=== PATIENT | male | born 1975 | race Hispanic/Latino ===

== ENCOUNTER 2018-01-13 14:15 | Observation (INO) | payer SELFPAY ==
[2018-01-13 14:52] LABS: Protime INR 0.91
[2018-01-13 14:55] LABS: Absolute Lymphocytes (CBC) 1.6 K/uL (0.7-4.9); Absolute Monocytes 0.6 K/uL (0.1-1.3); Absolute Neutrophil 3.7 K/uL (1.8-8.0); Basophils % 1.1 % (0-1.3); Eosinophils % 3.1 % (0-4.4); Hematocrit 41.9 % (39.6-49.0); MCH 29.2 pg (27.0-35.0); MCV 85.5 fL (80-100); MPV 8.6 fL (7.6-11.3); Monocytes % 10.5 % (3.3-12.3)
--- NOTE | 2018-01-13 15:04 | RAD REPORT ---
EXAM DESCRIPTION: RAD - Chest Single View - 01/13/2018 3:00 pm CLINICAL HISTORY: CHEST PAIN Chest pain. COMPARISON: No comparisons FINDINGS: Portable technique limits examination quality. The lungs are grossly clear. The heart is normal in size. No displaced fractures.Sternotomy wires pre sent. IMPRESSION: No acute intrathoracic process suspected.
[2018-01-13] MEDS ORDERED: NITROGLYCERIN 0.4 MG/TAB SL ONE (15:06)
--- NOTE | 2018-01-13 15:09 | EKG ---
Test Date: 2018-01-13 Test Time: 14:35:21 Bean Roaster: ARACELIS MEASUREMENT RESULTS: Intervals: Rate: 66 LA: 140 QRSD: 96 QT: 364 QTc: 381 Bylas: P: 44 LA: 140 QRS: -55 T: -1 INTERPRETIVE STATEMENTS: Normal sinus rhythm Left axis deviation Septal infarct, age undetermined Abnormal ECG No previous ECG available for comparison Electronically Signed On 01-13-18 15:09:01 GASTROENTEROLOGIST by Vitaliy Marie
[2018-01-13 15:11] LABS: ALT/SGPT 26 U/L (12-78); AST/SGOT 17 U/L (15-37); Albumin 3.7 g/dL (3.4-5.0); Alkaline Phosphatase 66 U/L (45-117); BUN Blood Urea Nitrogen 20 mg/dL (7-18); Bicarbonate 23 mmol/L (21-32); Bilirubin Direct 0.1 mg/dL (0-0.2); Bilirubin Total 0.9 mg/dL (0.2-1.0); Glucose Level 218 mg/dL (74-106); Magnesium 2.2 mg/dL (1.8-2.4); NT PRO-BNP 28 pg/mL (<125); Potassium 3.7 mmol/L (3.5-5.1); Protein, Total 7.5 g/dL (6.4-8.2); Sodium Level 138 mmol/L (136-145); Troponin (Emerg Dept Use Only) < 0.02 ng/mL (0.0-0.045)
--- NOTE | 2018-01-13 16:38 | ER ---
Nurse's Notes [facility] Name: Axel Contreras Age: 42 yrs Sex: Male : 1975 Arrival Date: 01/13/2018 Time: 14:17 Bed 6 Private MD: Diagnosis: Chest pain, unspecified Presentation: 01/13 14:18 Presenting complaint: Patient states: "I was walking to work when I suddenly felt pain ca1 on my left side of my chest". Transition of care: patient was not received from another setting of care. Onset of symptoms was January 13, 2018. Risk Assessment: Do you want to hurt yourself or someone else? Patient reports no desire to harm self or others. Initial Sepsis Screen: Does the patient meet any 2 criteria? No. Patient's initial sepsis screen is negative. Does the patient have a suspected source of infection? No. Patient's initial sepsis screen is negative. Care prior to arrival: Medication(s) given: ASA, 325 mg, Nitroglycerin, 0.4 mg SL Glucose check: 244. 14:18 Method Of Arrival: EMS: [facility] ca1 14:18 Acuity: GEOVANNA 2 ca1 Historical: - Allergies: 14:26 No Known Allergies; ca1 - PMHx: 14:26 Diabetes - NIDDM; Hypertension; Myocardial infarction; ca1 - PSHx: 14:26 heart bypass; ca1 - Immunization history:: Adult Immunizations not up to date. - Ebola Screening: : No symptoms or risks identified at this time. - Social history:: Smoking status: Patient/guardian denies using tobacco. Screenin:36 Abuse screen: Denies threats or abuse. Nutritional screening: No deficits noted. ca1 Tuberculosis screening: No symptoms or risk factors identified. Fall Risk None identified. Assessment: 14:20 General: Appears uncomfortable, Behavior is calm, cooperative. Pain: Complains of pain ca1 in left breast Pain does not radiate. Pain currently is 6 out of 10 on a pain scale. Quality of pain is described as sharp, Pain began suddenly. 14:20 Neuro: No deficits noted. Cardiovascular: Heart tones S1 S2 present. Respiratory: ca1 Breath sounds are clear bilaterally. GI: No signs and/or symptoms were reported involving the gastrointestinal system. : No signs and/or symptoms were reported regarding the genitourinary system. EENT: No signs and/or symptoms were reported regarding the EENT system. Derm: No signs and/or symptoms reported regarding the dermatologic system. Musculoskeletal: Circulation, motion, and sensation intact. 15:20 Reassessment: Pt resting in bed with eyes closed. Pt awakens easily to verbal stimuli. aa5 Pt reports pain is decreased to 4/10 on a pain scale. Respirations even and unlabored, skin is pink,warm/dry. Bed remains in low position, side rails x 2, call ramirez within reach . 19:00 General: Appears in no apparent distress. distressed, Behavior is calm, cooperative. rr5 19:00 Pain: Denies pain. Neuro: Level of Consciousness is awake, alert, Oriented to person, rr5 place, time, situation. Cardiovascular: Heart tones S1 S2 present Capillary refill < 3 seconds Patient's skin is warm and dry. Respiratory: Airway is patent Respiratory effort is even, unlabored, Respiratory pattern is regular, symmetrical. GI: No signs and/or symptoms were reported involving the gastrointestinal system. : No signs and/or symptoms were reported regarding the genitourinary system. EENT: No signs and/or symptoms were reported regarding the EENT system. Derm: No signs and/or symptoms reported regarding the dermatologic system. Musculoskeletal: Circulation, motion, and sensation intact. Capillary refill < 3 seconds, Range of motion:. 19:40 Reassessment: Patient appears in no apparent distress at this time. call made to 4th lp1 floor they will call back as stated by the staff nurse monico Patient denies pain at this time. Patient states feeling better. Patient states symptoms have improved. Vital Signs: 14:22 BP 140 / 108; Pulse 70; Resp 16 S; Temp 98.8(O); Pulse Ox 98% on R/A; Weight 81.65 kg; ca1 Height 5 ft. 9 in. (175.26 cm); Pain 6/10; 15:20 BP 131 / 97; Pulse 70; Resp 16 S; Pulse Ox 97% on R/A; Pain 4/10; aa5 16:20 BP 141 / 98; Pulse 75; Resp 16 S; Pulse Ox 97% on R/A; aa5 19:00 BP 130 / 89; Pulse 67; Resp 16; Temp 98.9; Pulse Ox 99% on R/A; Pain 0/10; rr5 19:56 BP 166 / 91; Pulse 84; Resp 18; Pulse Ox 99% on R/A; ea 20:42 BP 136 / 85; Pulse 80; Resp 17; Temp 98.6; Pulse Ox 99% on R/A; Pain 0/10; lp1 14:22 Body Mass Index 26.58 (81.65 kg, 175.26 cm) ca1 ED Course: 14:17 Patient arrived in ED. ca1 14:20 Arm band placed on right wrist. ca1 14:22 Triage completed. ca1 14:24 Madhav Salguero PA is PHCP. jr8 14:24 Jack Haywood MD is Attending Physician. jr8 14:26 Sandhya Forman, NANCY is Primary Nurse. ca1 14:32 Initial lab(s) drawn, by me, sent to lab. Inserted saline lock: 18 gauge in right aa5 forearm, using aseptic technique. Blood collected. 14:57 X-ray completed. Portable x-ray completed in exam room. Patient tolerated procedure ls3 well. 15:01 XRAY Chest (1 view) In Process Unspecified. EDMS 16:37 Graciela Mckeon MD is Hospitalizing Provider. jr8 19:11 Report given to Xiomy RN and NANCY Diallo. ca1 19:11 Patient has correct armband on for positive identification. phototypesetting equipment monitor on. Pulse rr5 ox on. NIBP on. 20:46 No provider procedures requiring assistance completed. Patient admitted, IV remains in rr5 place. Patient maintains SpO2 saturation greater than 95% on room air. Administered Medications: 15:00 Drug: Nitroglycerin 0.4 mg Route: Sublingual; aa5 15:25 Follow up: Response: No adverse reaction aa5 Outcome: 16:37 Decision to Hospitalize by Provider. jr8 20:45 Admitted to Tele accompanied by tech, via wheelchair, with chart, Report called to rr5 leslie RN 20:45 Condition: stable 20:45 Instructed on the need for admit. 21:09 Patient left the ED. lp1 Signatures: Dispatcher [employer] EDMS Jodi Nuno RN RN aa5 Imani Roldan RN RN lp1 Madhav Salguero PA PA jr8 Xiomy Lemus RN RN ea Siler, Lynzie ls3 Carson Sandra RN RN rr5 Acob, Sandhya, RN RN ca1 Corrections: (The following items were deleted from the chart) 16:38 15:32 BP 132 / 112; Pulse 70bpm; Resp 16bpm; Pulse Ox 96% RA; Pain 5/10; ca1 aa5
--- NOTE | 2018-01-13 16:38 | EDPHYS ---
Physician Documentation [facility] Name: Axel Contreras Age: 42 yrs Sex: Male : 1975 Arrival Date: 01/13/2018 Time: 14:17 Bed 6 Private MD: ED Physician Jack Haywood HPI: 01/13 15:35 This 42 yrs old Male presents to ER via EMS with complaints of Chest Pain. jr8 15:35 The patient or guardian reports chest pain that is located primarily in the substernal jr8 area. Onset: acutely, today. The pain does not radiate. Associated signs and symptoms: The patient has no apparent associated signs or symptoms. The chest pain is described as squeezing. Duration: The patient or guardian reports a single episode, that is still ongoing, but improving. Modifying factors: The symptoms are alleviated by nothing. the symptoms are aggravated by activity. Severity of pain: At its worst the pain was moderate in the emergency department the pain is unchanged. The patient has experienced a previous episode. The patient has not recently seen a physician. Historical: - Allergies: 14:26 No Known Allergies; ca1 - PMHx: 14:26 Diabetes - NIDDM; Hypertension; Myocardial infarction; ca1 - PSHx: 14:26 heart bypass; ca1 - Immunization history:: Adult Immunizations not up to date. - Ebola Screening: : No symptoms or risks identified at this time. - Social history:: Smoking status: Patient/guardian denies using tobacco. ROS: 15:35 Eyes: Negative for injury, pain, redness, and discharge, ENT: Negative for injury, jr8 pain, and discharge, Neck: Negative for injury, pain, and swelling, Respiratory: Negative for shortness of breath, cough, wheezing, and pleuritic chest pain, Abdomen/GI: Negative for abdominal pain, nausea, vomiting, diarrhea, and constipation, Back: Negative for injury and pain, MS/Extremity: Negative for injury and deformity, Skin: Negative for injury, rash, and discoloration, Neuro: Negative for headache, weakness, numbness, tingling, and seizure. 15:35 Cardiovascular: Positive for chest pain, Negative for edema, orthopnea, palpitations, paroxysmal nocturnal dyspnea. Exam: 15:35 Eyes: Pupils equal round and reactive to light, extra-ocular motions intact. Lids and jr8 lashes normal. Conjunctiva and sclera are non-icteric and not injected. Cornea within normal limits. Periorbital areas with no swelling, redness, or edema. ENT: Nares patent. No nasal discharge, no septal abnormalities noted. Tympanic membranes are normal and external auditory canals are clear. Oropharynx with no redness, swelling, or masses, exudates, or evidence of obstruction, uvula midline. Mucous membranes moist. Neck: Trachea midline, no thyromegaly or masses palpated, and no cervical lymphadenopathy. Supple, full range of motion without nuchal rigidity, or vertebral point tenderness. No Meningismus. Chest/axilla: Normal chest wall appearance and motion. Nontender with no deformity. No lesions are appreciated. Cardiovascular: Regular rate and rhythm with a normal S1 and S2. No gallops, murmurs, or rubs. Normal PMI, no JVD. No pulse deficits. Respiratory: Lungs have equal breath sounds bilaterally, clear to auscultation and percussion. No rales, rhonchi or wheezes noted. No increased work of breathing, no retractions or nasal flaring. Abdomen/GI: Soft, non-tender, with normal bowel sounds. No distension or tympany. No guarding or rebound. No evidence of tenderness throughout. Back: No spinal tenderness. No costovertebral tenderness. Full range of motion. Skin: Warm, dry with normal turgor. Normal color with no rashes, no lesions, and no evidence of cellulitis. MS/ Extremity: Pulses equal, no cyanosis. Neurovascular intact. Full, normal range of motion. Neuro: Awake and alert, GCS 15, oriented to person, place, time, and situation. Cranial nerves II-XII grossly intact. Motor strength 5/5 in all extremities. Sensory grossly intact. Cerebellar exam normal. Normal gait. Vital Signs: 14:22 BP 140 / 108; Pulse 70; Resp 16 S; Temp 98.8(O); Pulse Ox 98% on R/A; Weight 81.65 kg; ca1 Height 5 ft. 9 in. (175.26 cm); Pain 6/10; 15:20 BP 131 / 97; Pulse 70; Resp 16 S; Pulse Ox 97% on R/A; Pain 4/10; aa5 16:20 BP 141 / 98; Pulse 75; Resp 16 S; Pulse Ox 97% on R/A; aa5 19:00 BP 130 / 89; Pulse 67; Resp 16; Temp 98.9; Pulse Ox 99% on R/A; Pain 0/10; rr5 19:56 BP 166 / 91; Pulse 84; Resp 18; Pulse Ox 99% on R/A; ea 20:42 BP 136 / 85; Pulse 80; Resp 17; Temp 98.6; Pulse Ox 99% on R/A; Pain 0/10; lp1 14:22 Body Mass Index 26.58 (81.65 kg, 175.26 cm) ca1 MDM: 14:24 Patient medically screened. jr8 16:35 The patient was not given aspirin in the Emergency Department. Patient reports taking jr8 aspirin within the past 24 hours. Data reviewed: vital signs, nurses notes, lab test result(s), EKG, radiologic studies, plain films. Data interpreted: Pulse oximetry: on room air is 96 %. Interpretation: normal. Counseling: I had a detailed discussion with the patient and/or guardian regarding: the historical points, exam findings, and any diagnostic results supporting the discharge/admit diagnosis, lab results, radiology results, the need for further work-up and treatment in the hospital. Physician consultation: Graciela Mckeon MD was called at 16:35, was contacted at 16:35, regarding admission, to the telemetry unit. and will see patient in ED. 01/13 14:24 Order name: Basic Metabolic Panel; Complete Time: 15:01/13 14:24 Order name: CBC with Diff; Complete Time: 15:01/13 14:24 Order name: LFT's; Complete Time: 15:01/13 14:24 Order name: Magnesium; Complete Time: 15:01/13 14:24 Order name: NT PRO-BNP; Complete Time: 15:01/13 14:24 Order name: PT-INR; Complete Time: 15:01/13 14:24 Order name: Troponin (emerg Dept Use Only); Complete Time: 15:01/13 14:24 Order name: XRAY Chest (1 view); Complete Time: 15:01/13 14:24 Order name: EKG; Complete Time: 14:01/13 14:24 Order name: Cardiac monitoring; Complete Time: 14:40 8 01/13 14:24 Order name: EKG - Nurse/Tech; Complete Time: 14:40 8 01/13 14:24 Order name: IV Saline Lock; Complete Time: 14:40 8 01/13 14:24 Order name: Labs collected and sent; Complete Time: 14:40 jr8 01/13 14:24 Order name: O2 Per Protocol; Complete Time: 14:40 8 01/13 14:24 Order name: O2 Sat Monitoring; Complete Time: 14:40 jr8 Administered Medications: 15:00 Drug: Nitroglycerin 0.4 mg Route: Sublingual; aa5 15:25 Follow up: Response: No adverse reaction aa5 Disposition: 01/14 06:22 Co-signature as Attending Physician, Jack Haywood MD I agree with the assessment and kenneth plan of care. Disposition: 01/13/18 16:37 Hospitalization ordered by Graciela Mckeon for Observation. Preliminary diagnosis is Chest pain, unspecified. - Bed requested for Telemetry/MedSurg (observation). - Status is Observation. lp1 - Condition is Stable. - Problem is new. - Symptoms have improved. UTI on Admission? No Signatures: Dispatcher [employer] EDMS Lou Alexander Corey, MD MD cha Calderon, Audri, RN RN aa5 Imani Roldan RN RN lp1 Madhav Salguero PA PA jr8 Carson Sandra, RN RN rr5 Sandhya Forman RN RN ca1 Corrections: (The following items were deleted from the chart) 01/13 18:54 16:37 Hospitalization Ordered by Graciela Mckeon MD for Observation. Preliminary bd diagnosis is Chest pain, unspecified. Bed requested for Telemetry/MedSurg (observation). Status is Observation. Condition is Stable. Problem is new. Symptoms have improved. UTI on Admission? No. jr8 21:09 18:54 01/13/2018 16:37 Hospitalization Ordered by Graciela Mckeon MD for Observation. lp1 Preliminary diagnosis is Chest pain, unspecified. Bed requested for Telemetry/MedSurg (observation). Status is Observation. Condition is Stable. Problem is new. Symptoms have improved. UTI on Admission? No. bd
[2018-01-13] MEDS ORDERED: ONDANSETRON 4 MG/2 ML VIAL IV PRN (21:40)
[2018-01-13] MEDS ORDERED: ACETAMINOPHEN 500 MG TAB PO PRN (21:40)
[2018-01-13] MEDS ORDERED: ACETAMINOPHEN 325 MG TABLET ONE (21:57)
[2018-01-13] MEDS: INSULIN -REGULAR HUMAN 50 UNIT/0.5 ML ML SQ SCH (23:26)
[2018-01-13] MEDS ORDERED: METOPROLOL TAR 50 MG TAB PO ONE (23:35)
[2018-01-13 23:45] LABS: Urine Appearance CLEAR; Urine Bilirubin NEGATIVE (NEG); Urine Blood NEGATIVE (NEG); Urine Color YELLOW; Urine Glucose 1+ (NEG); Urine Protein TRACE (NEG); Urine Specific Gravity 1.025 (1.005-1.030); Urine Urobilinogen 0.2 mg/dL (0.2-1.0); Urine pH 5.5 (5.0-7.0)
[2018-01-13 23:49] LABS: Urine Microscopic Reflex ORDER UMIC
[2018-01-14 00:01] LABS: Urine Bacteria <20 /HPF (NONE SEEN); Urine Culture Reflex Order NOT NEEDED; Urine Mucus 2+ /HPF (NONE SEEN); Urine RBC <5 /HPF (NONE SEEN)
[2018-01-14] MEDS: INSULIN -REGULAR HUMAN 50 UNIT/0.5 ML ML SQ SCH ×3 (07:30→16:30)
[2018-01-14] MEDS: MORPHINE 4 MG/ML SYR IV PRN ×2 (07:43→14:43)
[2018-01-14] MEDS ORDERED: INFLUENZA VACCINE (for 3y+) 0.5 ML DOSE IMVAC ONE (08:00)
[2018-01-14 08:20] LABS: Absolute Lymphocytes (CBC) 2.5 K/uL (0.7-4.9); Absolute Monocytes 0.8 K/uL (0.1-1.3); Absolute Neutrophil 3.9 K/uL (1.8-8.0); Basophils % 1.2 % (0-1.3); Eosinophils % 3.2 % (0-4.4); Hematocrit 44.7 % (39.6-49.0); Lymphocytes % 33.1 % (15.3-44.8); MCH 29.4 pg (27.0-35.0); MCV 86.6 fL (80-100); MPV 8.9 fL (7.6-11.3); Monocytes % 10.1 % (3.3-12.3); RBC Red Blood Cell Count 5.17 M/uL (4.33-5.43)
[2018-01-14 08:36] LABS: ALT/SGPT 26 U/L (12-78); AST/SGOT 21 U/L (15-37); Albumin 3.9 g/dL (3.4-5.0); Alkaline Phosphatase 68 U/L (45-117); BUN Blood Urea Nitrogen 19 mg/dL (7-18); Bicarbonate 28 mmol/L (21-32); Bilirubin Total 1.2 mg/dL (0.2-1.0); Glucose Level 185 mg/dL (74-106); HDL Cholesterol 34 mg/dL (40-60); LDL Cholesterol, Calculated ND (<130); Potassium 4.2 mmol/L (3.5-5.1); Protein, Total 7.6 g/dL (6.4-8.2); Sodium Level 137 mmol/L (136-145)
[2018-01-14] MEDS ORDERED: REGADENOSON 0.4 MG/5 ML SYR IV ONE (08:59)
[2018-01-14] MEDS ORDERED: METOPROLOL TAR 50 MG TAB PO SCH (09:00)
[2018-01-14 09:07] LABS: LDL, Direct 125 mg/dL (100-129)
--- NOTE | 2018-01-14 12:14 | TREADPHA ---
DX: CHEST PAIN Date of Study: 01/14/18 Ht: 5 9 Wt: 182 lb 1.6 oz Consulting Physician: SHERINE MEDICATIONS: TYLENOL, NOVOLIN R, LOPRESSOR, ZOFRAN HISTORY: 42 YEAR OLD MALE WITH DIABETES MELLITUS, HYPERTENSION, CHEST PAIN PHYSICIAL EXAMINATION: RESTING B.P.: 146/96 RESTING H.R.: 58 RESTING EKG: SINUS BRADYCARDIA, RIGHT AXIS DEVIATION, POSSIBLE OLD ANTERIOR MYOCARDIAL INFARCTION PROTOCOL: LEXISCAN EXERCISE TIME: 3:30 B.P. AT PEAK STRESS: 131/92 IMPRESSION: LEXISCAN STRESS TEST PERFORMED. CARDIOLITE INJECTED PER PROTOCOL. NO CHEST PAIN, SUPRA VENTRICULAR TACHYCARDIA, OR VENTRICULAR TACHYCARDIA. SEE NUCLEAR MEDICINE REPORT.
--- NOTE | 2018-01-14 13:22 | P.HP ---
Certification for Inpatient Patient admitted to: Observation With expected LOS: <2 Midnights Patient will require the following post-hospital care: None Practitioner: I am a practitioner with admitting privileges, knowledge of patient current condition, hospital course, and medical plan of care. Services: Services provided to patient in accordance with Admission requirements found in Title 42 Section 412.3 of the Code of Federal Regulations Patient History Date of Service: 01/13/18 Reason for admission: chest pain rule out acute coronary syndrome History of Present Illness: Patient is a 42-year-old gentleman who came to the hospital with chest pain. Pain was mainly in the sternal region and he described as squeezing. There was no radiation of his pain. He has not been taking his heart medications nor is he taking his diabetic medications. Patient is very noncompliant. He came to the hospital for further workup. He has had a CABG Over the last year. He will be admitted to the hospital for further workup. Will go ahead and do serial troponins and EKG and if negative then plan to do a stress test in the morning. Allergies No Known Allergies Allergy (Unverified 01/13/18 23:54) Home Medications: Metformin HCl 1 tab PO BID 01/13/18 Metoprolol Tartrate 1 tab PO BID 01/13/18 - Past Medical/Surgical History Has patient received pneumonia vaccine in the past: No Diabetic: Yes -: Diabetes -: HTN -: Hyperlipidemia -: SD -: CABG x 5 - Family History Father Medical History: Heart disease, Hypertension, Diabetes Mother Medical History: Diabetes, Other (see notes) Notes: seizures - Social History Smoking Status: Former smoker Alcohol use: Yes CD- Drugs: No Caffeine use: Yes Place of Residence: Home Review of Systems 10-point ROS is otherwise unremarkable Physical Examination - Vital Signs Temperature: 97.1 F Blood Pressure: 149/95 Pulse: 60 Respirations: 18 Pulse Ox (%): 98 - Physical Exam General: Alert, In no apparent distress, Oriented x3 HEENT: Atraumatic, PERRLA, Mucous membr. moist/pink, EOMI, Sclerae nonicteric Neck: Supple, 2+ carotid pulse no bruit, No LAD, Without JVD or thyroid abnormality Respiratory: Clear to auscultation bilaterally, Normal air movement Cardiovascular: Regular rate/rhythm, Normal S1 S2, No murmurs Gastrointestinal: Normal bowel sounds, Soft and benign, Non-distended, No tenderness Musculoskeletal: No clubbing, No swelling, No tenderness Integumentary: No rashes Neurological: Normal gait, Normal speech, Normal strength at 5/5 x4 extr, Normal tone, Sensation intact, Cranial nerves 3-12 intact, Normal affect Lymphatics: No axilla or inguinal lymphadenopathy - Studies Laboratory Data (last 24 hrs) 01/13/18 14:35: WBC 6.2, Hgb 14.3, Hct 41.9, Plt Count 254 01/13/18 14:35: Sodium 138, Potassium 3.7, BUN 20 H, Creatinine 0.80, Glucose 218 H, Magnesium 2.2, Total Bilirubin 0.9, AST 17, ALT 26, Alkaline Phosphatase 66 01/13/18 14:34: PT 10.7, INR 0.91 Assessment & Plan - Problems (Diagnosis) (1) Chest pain, rule out acute myocardial infarction Current Visit: Yes Status: Acute (2) S/P CABG x 5 Current Visit: Yes Status: Acute (3) DM2 (diabetes mellitus, type 2) Current Visit: Yes Status: Acute (4) HTN (hypertension) Current Visit: Yes Status: Acute (5) Noncompliance Current Visit: Yes Status: Acute - Plan 1. Serial troponins and EKG 2. Cardiology consultation 3. Echocardiogram and inpatient stress test(pending cardiology evaluation) 4. Anti-platelet therapy, anti coagulation, beta-quique, statin, and O2 as needed 5. IV morphine for pain 6. Nitro p.r.n. Discharge Plan: Home Plan to discharge in: 48 Hours - Advance Directives Does patient have a Living Will: No Does patient have a Durable POA for Healthcare: No - Code Status/Comfort Care Code Status Assessed: Yes Code Status: Full Code Critical Care: No Time Spent Managing PTS Care (In Minutes): 45
--- NOTE | 2018-01-14 15:06 | RAD REPORT ---
EXAM DESCRIPTION: NM - Rest Stress Cardiac Imaging - 01/14/2018 12:29 pm CLINICAL HISTORY: Chest pain. COMPARISON: None. TECHNIQUE: The patient was administered approximately 10mCi of Tc 99m Sestamibi prior to resting SPE CT imaging of the heart. The patient was then administered approximately 30 mCi of Tc 99m Sestamibi f ollowing exercise or pharmacologic stress. Multiplanar SPECT images were reviewed. FINDINGS: Small area of diminished radiotracer uptake involves the anterior left ventricular myocar dium on stress images. On rest images these areas have a more normal appearance. Small to moderate area of diminished radiotracer uptake involves the inferior left ventricular myocar dium on rest and stress images. Left ventricular ejection fraction 40% IMPRESSION: Small apparent reversible perfusion defect involving the anterior left ventricular myoca rdium may indicate stress-induced ischemia Small to moderate fixed perfusion defect involving the inferior left ventricular myocardium may indic ate an infarct
--- NOTE | 2018-01-14 17:42 | P.SSS ---
Patient History Date of Service: 01/14/18 Reason for admission: chest pain rule out acute coronary syndrome History of Present Illness: Patient is a 42-year-old gentleman who came to the hospital with chest pain. Pain was mainly in the sternal region and he described as squeezing. There was no radiation of his pain. He has not been taking his heart medications nor is he taking his diabetic medications. Patient is very noncompliant. He came to the hospital for further workup. He has had a CABG Over the last year. He will be admitted to the hospital for further workup. Will go ahead and do serial troponins and EKG and if negative then plan to do a stress test in the morning. Allergies No Known Allergies Allergy (Unverified 01/13/18 23:54) Home Medications: Metformin HCl 1 tab PO BID 01/13/18 Metoprolol Tartrate 1 tab PO BID 01/13/18 Aspirin 81 mg PO DAILY #30 tab.chew 01/14/18 Atorvastatin Calcium [Lipitor*] 20 mg PO BEDTIME #30 tab 01/14/18 Clindamycin HCl 150 mg PO DAILY #10 capsule 01/14/18 - Past Medical/Surgical History Has patient received pneumonia vaccine in the past: No Diabetic: Yes -: Diabetes -: HTN -: Hyperlipidemia -: [place] -: CABG x 5 - Family History Father -: Heart disease, Hypertension, Diabetes Mother -: Diabetes, Other (see notes) Notes: seizures - Social History Smoking Status: Former smoker Alcohol use: Yes CD- Drugs: No Caffeine use: Yes Place of Residence: Home Review of Systems 10-point ROS is otherwise unremarkable Physical Examination - Vital Signs Temperature: 97.1 F Blood Pressure: 149/95 Pulse: 60 Respirations: 18 Pulse Ox (%): 98 - Physical Exam General: Alert, In no apparent distress HEENT: Atraumatic, PERRLA, Mucous membr. moist/pink, EOMI, Sclerae nonicteric Neck: Supple, 2+ carotid pulse no bruit, No LAD, Without JVD or thyroid abnormality Respiratory: Clear to auscultation bilaterally, Normal air movement Cardiovascular: Regular rate/rhythm, Normal S1 S2 Gastrointestinal: Normal bowel sounds, No tenderness Musculoskeletal: No tenderness Integumentary: No rashes Neurological: Normal gait, Normal speech, Normal strength at 5/5 x4 extr, Normal tone, Normal affect Lymphatics: No axilla or inguinal lymphadenopathy - Diagnosis (Problem(s)) (1) Chest pain, rule out acute myocardial infarction Status: Acute (2) DM2 (diabetes mellitus, type 2) Status: Acute (3) HTN (hypertension) Status: Acute (4) Noncompliance Status: Acute (5) S/P CABG x 5 Status: Acute Treatment Summary: Overall during the hospital stay patient remained stable The patient was admitted to the hospital for chest pain rule out ACS. Patient had echo and cardiac stress test done here in the hospital which were both within normal limits. Patient was seen by cardiology here in the hospital who recommended the patient to be discharged home safely and has to follow up with cardiology in about 1-2 days post discharge. Patient was asked to continue taking medication as prescribed by his primary care doctor and establish care with a local physician here. Patient was also placed on aspirin Lipitor given his extensive history of diabetes and elevated triglycerides. Patient demonstrated understanding and stated that he will be following up in about 1 to 2 days post discharge. - Disposition Disposition: ROUTINE DISCHARGE Condition: GOOD Patient Discharge Instructions: Please f,u with PCP in 1 to 2 week post discharge. Resume Home medication. New medication. Lipitor and ASA Diet: Regular Activity: Ad jolanta
--- NOTE | 2018-01-15 07:56 | ECHO ---
HEIGHT: 5 ft 9 in WEIGHT: 182 lb 1.6 oz DATE OF STUDY: 01/14/[address]: Graciela Mckeon MD 2-DIMENSIONAL: YES M.MODE: YES DOPPLER: YES COLOR FLOW: YES TDS: NO PORTABLE: NO DEFINITY: NO BUBBLE STUDY: NO DIAGNOSIS: CHEST PAIN CARDIAC HISTORY: CATHERIZATION: YES SURGERY: YES PROSTHETIC VALVE: NO PACEMAKER: NO MEASUREMENTS (cm) DIASTOLIC (NORMALS) SYSTOLIC (NORMALS) IVSd 1.0 (0.6-1.2) LA Diam 4.0 (1.9-4.0) LVEF 63% LVIDd 5.2 (3.5-5.7) LVIDs 3.4 (2.0-3.5) %FS 34% LVPWd 1.0 (0.6-1.2) Ao Diam 3.1 (2.0-3.7) 2 DIMENSIONAL ASSESSMENT: RIGHT ATRIUM: NORMAL LEFT ATRIUM: NORMAL RIGHT VENTRICLE: NORMAL LEFT VENTRICLE: NORMAL TRICUSPID VALVE: NORMAL MITRAL VALVE: NORMAL PULMONIC VALVE: NORMAL AORTIC VALVE: NORMAL PERICARDIAL EFFUSION: NONE AORTIC ROOT: NORMAL LEFT VENTRICULAR WALL MOTION: DOPPLER/COLOR FLOW: MILD TRICUSPID REGURGITATION. NORMAL RIGHT VENTRICULAR SYSTOLIC PRESSURE. COMMENTS: NORMAL 2D ECHOCARDIOGRAM. MILD TRICUSPID REGURGITATION. TECHNOLOGIST: Shyanne GATES
== END 2018-01-14 16:39 | disposition home or self-care (01) ==
LOC: ER 14:15 → 4TH 21:34
PROVIDERS: ADMIT Family Medicine; ATTEND Hospitalist
DX: R07.9 Chest pain, unspecified (principal); E11.9 Type 2 diabetes mellitus without complications; I10 Essential (primary) hypertension; E78.5 Hyperlipidemia, unspecified; I25.2 Old myocardial infarction; Z95.1 Presence of aortocoronary bypass graft; Z87.891 Personal history of nicotine dependence; Z91.19 Patient's noncompliance with other medical treatment and regimen; Z79.82 Long term (current) use of aspirin
CPT/HCPCS: 36415; 71045; 78452; 80048; 80053; 80061; 80076; 81003; 81015; 82962; 83036; 83735; 83880; 84484; 85025; 85610; 93005; 93017; 93306; 99285; A9500; G0378; J2785

== ENCOUNTER 2018-04-24 13:33 | Emergency (ER) | payer SELFPAY ==
[2018-04-24 14:29] LABS: Absolute Lymphocytes (CBC) 1.6 K/uL (0.7-4.9); Absolute Monocytes 0.5 K/uL (0.1-1.3); Absolute Neutrophil 4.7 K/uL (1.8-8.0); Basophils % 0.9 % (0-1.3); Eosinophils % 4.2 % (0-4.4); Hematocrit 41.4 % (39.6-49.0); Lymphocytes % 22.1 % (15.3-44.8); MPV 8.5 fL (7.6-11.3); Monocytes % 7.2 % (3.3-12.3); RBC Red Blood Cell Count 4.72 M/uL (4.33-5.43)
[2018-04-24 14:31] LABS: Protime INR 0.89
--- NOTE | 2018-04-24 14:46 | RAD REPORT ---
EXAM DESCRIPTION: Jerson Single View04/24/2018 2:30 pm CLINICAL HISTORY: Shortness of breath COMPARISON: January 2018 FINDINGS: The lungs appear clear of acute infiltrate. The heart is normal size Postsurgical changes involve the chest. IMPRESSION: No acute abnormalities displayed
--- NOTE | 2018-04-24 15:01 | RAD REPORT ---
EXAM DESCRIPTION: CT - Head Brain Wo Cont - 04/24/2018 2:51 pm CLINICAL HISTORY: Syncope COMPARISON: None. TECHNIQUE: Computed axial tomography of the head was obtained. IV contrast was not requested. All CT scans are performed using dose optimization technique as appropriate and may include automated exposure control or mA/KV adjustment according to patient size. FINDINGS: An intracranial bleed is not seen . The ventricles are normal in caliber. No extra-axial fluid collection is noted. Fluid within the sinuses/ mastoids is not seen. IMPRESSION: No acute intracranial abnormality is seen. If patient's symptoms persist MRI of the bra in would be recommended.
[2018-04-24 15:11] LABS: Barbiturates NEGATIVE (NEGATIVE); Benzodiazepines NEGATIVE (NEGATIVE); Cocaine POSITIVE (NEGATIVE); METHAMPHETAM NEGATIVE (NEGATIVE); Methadone NEGATIVE (NEGATIVE); Opiates NEGATIVE (NEGATIVE); Phencyclidine NEGATIVE (NEGATIVE); THC Cannibis POSITIVE (NEGATIVE)
[2018-04-24] MEDS ORDERED: NA CHLORIDE 0.9% 1,000 ML ONE (15:21)
[2018-04-24 15:23] LABS: ALT/SGPT 24 U/L (12-78); AST/SGOT 14 U/L (15-37); Albumin 3.6 g/dL (3.4-5.0); Alkaline Phosphatase 59 U/L (45-117); BUN Blood Urea Nitrogen 24 mg/dL (7-18); Bicarbonate 22 mmol/L (21-32); Bilirubin Direct 0.1 mg/dL (0-0.2); Bilirubin Total 0.7 mg/dL (0.2-1.0); Glucose Level 210 mg/dL (74-106); Magnesium 2.2 mg/dL (1.8-2.4); NT PRO-BNP 16 pg/mL (<125); Potassium 4.1 mmol/L (3.5-5.1); Protein, Total 7.1 g/dL (6.4-8.2); Sodium Level 141 mmol/L (136-145); Troponin (Emerg Dept Use Only) < 0.02 ng/mL (0.0-0.045)
--- NOTE | 2018-04-24 15:43 | ER ---
Nurse's Notes [facility] Name: Axel Contreras Age: 43 yrs Sex: Male : 1975 Arrival Date: 04/24/2018 Time: 13:34 Bed 16 Private MD: Diagnosis: Dizziness and giddiness;Abuse of non-psychoactive substances;Cocaine abuse;Type 2 diabetes mellitus Presentation: 04/24 13:36 Presenting complaint: Patient states: DIZZINESS FOR THE LAST WEEK, WAS WALKING TO WORK ls4 AND FOOT NUMBNESS GOT WORSE. NO CHEST PAIN. STOPPED LIPITOR AND METFORMING ABOUT A YEAR AGO BECAUSE I DIDN'T LIE HOW THEY FELT. DRANK SOME ENERGY DRINKS TODAY. Transition of care: patient was not received from another setting of care. Onset of symptoms was April 17, 2018. Risk Assessment: Do you want to hurt yourself or someone else? Patient reports no desire to harm self or others. Initial Sepsis Screen: Does the patient meet any 2 criteria? No. Patient's initial sepsis screen is negative. Does the patient have a suspected source of infection? No. Patient's initial sepsis screen is negative. Care prior to arrival: IV initiated. 20 GA, in the left antecubital area. 13:36 Method Of Arrival: EMS: [facility] ls4 13:36 Acuity: GEOVANNA 3 ls4 Triage Assessment: 13:55 General: Appears in no apparent distress. comfortable, Behavior is calm, cooperative. ls4 Pain: Denies pain. Neuro: No deficits noted. Cardiovascular: Denies chest pain, fatigue, lightheadedness, nausea, palpitations, shortness of breath, syncope, vomiting, Capillary refill < 3 seconds Pulses are all present. Edema is absent. Rhythm is regular. Respiratory: Airway is patent Respiratory effort is even, unlabored, Respiratory pattern is regular, Breath sounds are clear bilaterally. Derm: Skin is intact, Skin is Skin is pink, warm \T\ dry. Musculoskeletal: No deficits noted. Reports numbness in right foot and left foot. Historical: - Allergies: 13:55 No Known Allergies; ls4 - PMHx: 13:55 Diabetes - NIDDM; Hypertension; Myocardial infarction; ls4 - PSHx: 13:55 heart bypass; ls4 - Immunization history:: Adult Immunizations up to date. - Social history:: Smoking status: Patient/guardian denies using tobacco. - Ebola Screening: : Patient negative for fever greater than or equal to 101.5 degrees Fahrenheit, and additional compatible Ebola Virus Disease symptoms Patient denies exposure to infectious person Patient denies travel to an Ebola-affected area in the 21 days before illness onset No symptoms or risks identified at this time. - Family history:: not pertinent. Screenin:38 Abuse screen: Denies threats or abuse. Denies injuries from another. Nutritional ls4 screening: No deficits noted. Tuberculosis screening: No symptoms or risk factors identified. Fall Risk None identified. Assessment: 13:58 General: Appears in no apparent distress. Behavior is calm, cooperative. Neuro: Level ls4 of Consciousness is awake, alert, obeys commands, Oriented to person, place, time, situation, Stranding Supervisor are equal bilaterally Moves all extremities. Gait is steady, Speech is normal, Facial symmetry appears normal, Pupils are PERRLA. Respiratory: Reports shortness of breath at rest Airway is patent Respiratory effort is even, unlabored, Respiratory pattern is regular. Vital Signs: 13:57 BP 144 / 90; Pulse 63; Resp 16; Pulse Ox 99% on R/A; Pain 0/10; ls4 14:00 BP 182 / 74; Pulse 74; Resp 16; Pulse Ox 99% on R/A; Pain 0/10; ls4 ED Course: 13:34 Patient arrived in ED. ls4 13:35 Jack Haywood MD is Attending Physician. [facility] 13:38 Triage completed. ls4 13:38 Patient has correct armband on for positive identification. Bed in low position. Call ls4 light in reach. Side rails up X 1. mechanic assistant on. Pulse ox on. NIBP on. Warm blanket given. 13:38 No provider procedures requiring assistance completed. Maintain EMS IV. Dressing ls4 intact. Good blood return noted. Site clean \T\ dry. 14:00 Arm band placed on. ls4 14:24 EKG done, by eligibility technician. reviewed by Jack Haywood MD. sm3 14:29 X-ray completed. Portable x-ray completed in exam room. Patient tolerated procedure jb2 well. 14:31 XRAY Chest (1 view) In Process Unspecified. EDMS 14:34 Norma Wilkinson, NANCY is Primary Nurse. 4 14:43 TSH Sent. 5 14:43 Basic Metabolic Panel Sent. [facility] 14:43 LFT's Sent. [facility] 14:43 Magnesium Sent. [facility] 14:43 NT PRO-BNP Sent. [facility] 14:43 Troponin (emerg Dept Use Only) Sent. [facility] 14:44 Initial lab(s) drawn, by me, sent to lab. 5 14:49 CT Head Brain wo Cont In Process Unspecified. EDMS 16:20 IV discontinued, intact, bleeding controlled, No redness/swelling at site. Pressure ls4 dressing applied. Administered Medications: 15:07 Drug: NS 0.9% 1000 ml Route: IV; Rate: 125 ml/hr; Site: left antecubital; ls4 16:19 Follow up: IV Status: Completed infusion; IV Intake: 250ml ls4 Intake: 16:19 IV: 250ml; Total: 250ml. ls4 Outcome: 15:43 Discharge ordered by . kenneth 16:19 Discharged to home ambulatory, with family. ls4 16:19 Condition: stable 16:19 Discharge instructions given to patient, family, Instructed on discharge instructions, follow up and referral plans. medication usage, Demonstrated understanding of instructions, follow-up care, medications. 16:21 Patient left the ED. ls4 Signatures: Dispatcher [employer] EDMS Jack Haywood MD MD cha Buechter, Jesse jb2 Martinez, Maria Yaneli Pat 3 Norma Wilkinson, RN RN ls4 Corrections: (The following items were deleted from the chart) 13:54 13:34 Presenting complaint: ls4 ls4
--- NOTE | 2018-04-24 15:43 | EDPHYS ---
Physician Documentation [facility] Name: Axel Contreras Age: 43 yrs Sex: Male : 1975 Arrival Date: 04/24/2018 Time: 13:34 Bed 16 Private MD: ED Physician Jack Haywood HPI: 04/24 14:37 This 43 yrs old Male presents to ER via EMS with complaints of Dizziness. kenneth 14:37 The patient presents with dizziness, generalized weakness. Onset: The symptoms/episode kenneth began/occurred just prior to arrival. Context: occurred on a street or driveway. Modifying factors: The symptoms are alleviated by nothing. Associated signs and symptoms: The patient has no apparent associated signs or symptoms. Severity of symptoms: At their worst the symptoms were mild moderate in the emergency department the symptoms have improved moderately. The patient has not experienced similar symptoms in the past. Historical: - Allergies: 13:55 No Known Allergies; ls4 - PMHx: 13:55 Diabetes - NIDDM; Hypertension; Myocardial infarction; ls4 - PSHx: 13:55 heart bypass; ls4 - Immunization history:: Adult Immunizations up to date. - Social history:: Smoking status: Patient/guardian denies using tobacco. - Ebola Screening: : Patient negative for fever greater than or equal to 101.5 degrees Fahrenheit, and additional compatible Ebola Virus Disease symptoms Patient denies exposure to infectious person Patient denies travel to an Ebola-affected area in the 21 days before illness onset No symptoms or risks identified at this time. - Family history:: not pertinent. ROS: 14:37 Constitutional: Negative for fever, chills, and weight loss, Eyes: Negative for injury, kenneth pain, redness, and discharge, ENT: Negative for injury, pain, and discharge, Neck: Negative for injury, pain, and swelling, Cardiovascular: Negative for chest pain, palpitations, and edema, Respiratory: Negative for shortness of breath, cough, wheezing, and pleuritic chest pain, Abdomen/GI: Negative for abdominal pain, nausea, vomiting, diarrhea, and constipation, Back: Negative for injury and pain, : Negative for injury, bleeding, discharge, and swelling, MS/Extremity: Negative for injury and deformity, Skin: Negative for injury, rash, and discoloration, Psych: Negative for depression, anxiety, suicide ideation, homicidal ideation, and hallucinations, Allergy/Immunology: Negative for hives, rash, and allergies, Endocrine: Negative for neck swelling, polydipsia, polyuria, polyphagia, and marked weight changes, Hematologic/Lymphatic: Negative for swollen nodes, abnormal bleeding, and unusual bruising. 14:37 Neuro: Positive for dizziness, near syncope. Exam: 14:37 Constitutional: This is a well developed, well nourished patient who is awake, alert, kenneth and in no acute distress. Head/Face: Normocephalic, atraumatic. Eyes: Pupils equal round and reactive to light, extra-ocular motions intact. Lids and lashes normal. Conjunctiva and sclera are non-icteric and not injected. Cornea within normal limits. Periorbital areas with no swelling, redness, or edema. ENT: Nares patent. No nasal discharge, no septal abnormalities noted. Tympanic membranes are normal and external auditory canals are clear. Oropharynx with no redness, swelling, or masses, exudates, or evidence of obstruction, uvula midline. Mucous membranes moist. Neck: Trachea midline, no thyromegaly or masses palpated, and no cervical lymphadenopathy. Supple, full range of motion without nuchal rigidity, or vertebral point tenderness. No Meningismus. Chest/axilla: Normal chest wall appearance and motion. Nontender with no deformity. No lesions are appreciated. Cardiovascular: Regular rate and rhythm with a normal S1 and S2. No gallops, murmurs, or rubs. Normal PMI, no JVD. No pulse deficits. Respiratory: Lungs have equal breath sounds bilaterally, clear to auscultation and percussion. No rales, rhonchi or wheezes noted. No increased work of breathing, no retractions or nasal flaring. Abdomen/GI: Soft, non-tender, with normal bowel sounds. No distension or tympany. No guarding or rebound. No evidence of tenderness throughout. Back: No spinal tenderness. No costovertebral tenderness. Full range of motion. Male : Normal genitalia with no discharge or lesions. Skin: Warm, dry with normal turgor. Normal color with no rashes, no lesions, and no evidence of cellulitis. MS/ Extremity: Pulses equal, no cyanosis. Neurovascular intact. Full, normal range of motion. Neuro: Awake and alert, GCS 15, oriented to person, place, time, and situation. Cranial nerves II-XII grossly intact. Motor strength 5/5 in all extremities. Sensory grossly intact. Cerebellar exam normal. Normal gait. Psych: Awake, alert, with orientation to person, place and time. Behavior, mood, and affect are within normal limits. Vital Signs: 13:57 BP 144 / 90; Pulse 63; Resp 16; Pulse Ox 99% on R/A; Pain 0/10; ls4 14:00 BP 182 / 74; Pulse 74; Resp 16; Pulse Ox 99% on R/A; Pain 0/10; ls4 MDM: 13:35 Patient medically screened. [facility] 14:39 Data reviewed: vital signs, nurses notes, lab test result(s), EKG, radiologic studies, [facility] CT scan, plain films. 04/24 13:35 Order name: Basic Metabolic Panel; Complete Time: 15:40 [facility] 04/24 13:35 Order name: CBC with Diff; Complete Time: 15:40 [facility] 04/24 13:35 Order name: LFT's; Complete Time: 15:40 [facility] 04/24 13:35 Order name: Magnesium; Complete Time: 15:40 [facility] 04/24 13:35 Order name: NT PRO-BNP; Complete Time: 15:40 [facility] 04/24 13:35 Order name: PT-INR; Complete Time: 15:40 [facility] 04/24 13:35 Order name: Troponin (emerg Dept Use Only); Complete Time: 15:40 [facility] 04/24 13:35 Order name: XRAY Chest (1 view); Complete Time: 15:40 [facility] 04/24 13:35 Order name: EKG; Complete Time: 13:36 [facility] 04/24 14:37 Order name: TSH [facility] 04/24 14:37 Order name: UDS; Complete Time: 15:40 [facility] 04/24 14:37 Order name: CT Head Brain wo Cont; Complete Time: 15:40 [facility] 04/24 14:48 Order name: Urine Dipstick--Ancillary (enter results) 04/24 13:35 Order name: Cardiac monitoring; Complete Time: 14:34 [facility] 04/24 13:35 Order name: EKG - Nurse/Tech; Complete Time: 14:34 [facility] 04/24 13:35 Order name: IV Saline Lock; Complete Time: 14:35 [facility] 04/24 13:35 Order name: Labs collected and sent; Complete Time: 14:35 4 04/24 13:35 Order name: O2 Per Protocol; Complete Time: 14:35 4 04/24 13:35 Order name: O2 Sat Monitoring; Complete Time: 14:34 4 04/24 14:37 Order name: Urine Dipstick-Ancillary (obtain specimen); Complete Time: 15:08 kenneth Administered Medications: 15:07 Drug: NS 0.9% 1000 ml Route: IV; Rate: 125 ml/hr; Site: left antecubital; ls4 16:19 Follow up: IV Status: Completed infusion; IV Intake: 250ml ls4 Disposition: 04/24/18 15:43 Discharged to Home. Impression: Dizziness and giddiness, Abuse of non-psychoactive substances, Cocaine abuse, Type 2 diabetes mellitus. - Condition is Stable. - Discharge Instructions: Stimulant Use Disorder-Cocaine, Type 2 Diabetes Mellitus, Diagnosis, Adult, Dizziness, Type 2 Diabetes Mellitus, Diagnosis, Adult, [id number], Dizziness, [id number]. - Medication Reconciliation Form, Thank You Letter, Antibiotic Education, Prescription Opioid Use form. - Follow up: Private Physician; When: 2 - 3 days; Reason: Recheck today's complaints, Continuance of care, Re-evaluation by your physician. - Problem is new. - Symptoms have improved. Signatures: Dispatcher [employer] EDJack Aguilera MD MD cha Stewart, Lisa RN RN ls4 Corrections: (The following items were deleted from the chart) 16:21 15:43 04/24/2018 15:43 Discharged to Home. Impression: Dizziness and giddiness; Abuse ls4 of non-psychoactive substances; Cocaine abuse; Type 2 diabetes mellitus. Condition is Stable. Forms are Medication Reconciliation Form, Thank You Letter, Antibiotic Education, Prescription Opioid Use. Follow up: Private Physician; When: 2 - 3 days; Reason: Recheck today's complaints, Continuance of care, Re-evaluation by your physician. Problem is new. Symptoms have improved. kenneth
[2018-04-24 17:04] LABS: Urine Blood NEGATIVE (NEG); Urine Glucose 2+ (NEG); Urine Protein NEGATIVE (NEG)
--- NOTE | 2018-04-25 05:29 | EKG ---
Test Date: 2018-04-24 Test Time: 13:38:22 [employer] Officer: FAHEEM MEASUREMENT RESULTS: Intervals: Rate: 70 [place]: 154 QRSD: 106 QT: 374 QTc: 403 [place]: P: 38 [place]: 154 QRS: -45 T: 14 INTERPRETIVE STATEMENTS: Normal sinus rhythm Left axis deviation Minimal voltage criteria for LVH, may be normal variant Anteroseptal infarct, age undetermined Abnormal ECG Compared to ECG 01/13/2018 14:35:21 Left ventricular hypertrophy now present Myocardial infarct finding still present Electronically Signed On 04-25-18 05:28:43 CDT by Vitaliy Marie
== END 2018-04-24 16:21 | disposition home or self-care (01) ==
LOC: ER 13:33
DX: F14.10 Cocaine abuse, uncomplicated (principal); F55.8 Abuse of other non-psychoactive substances; E11.9 Type 2 diabetes mellitus without complications; I10 Essential (primary) hypertension
CPT/HCPCS: 36415; 70450; 71045; 80048; 80076; 80307; 81003; 83735; 83880; 84443; 84484; 85025; 85610; 93005; 96360; 99284; J7030

== ENCOUNTER 2018-11-24 09:16 | Inpatient (IN) | payer SELFPAY ==
[2018-11-24] MEDS ORDERED: ENOXAPARIN 100 MG/ML SYR SQ ONE (09:27)
[2018-11-24] MEDS ORDERED: ASPIRIN 81 MG CHEWABLE TABLET ONE (09:27)
[2018-11-24] MEDS ORDERED: ONDANSETRON 4 MG/2 ML VIAL ONE (09:27)
[2018-11-24] MEDS ORDERED: MORPHINE 4 MG/ML SYR ONE (09:27)
[2018-11-24] MEDS ORDERED: FAMOTIDINE 20 MG/2 ML VIAL IV ONE (09:28)
[2018-11-24 09:38] LABS: Absolute Lymphocytes (CBC) 1.8 K/uL (0.7-4.9); Basophils % 1.3 % (0-1.3); Hematocrit 36.6 % (39.6-49.0); Lymphocytes % 26.5 % (15.3-44.8); MPV 8.4 fL (7.6-11.3); RBC Red Blood Cell Count 4.24 M/uL (4.33-5.43)
[2018-11-24 09:43] LABS: Protime INR 0.85
--- NOTE | 2018-11-24 10:00 | EKG ---
Test Date: 2018-11-24 Test Time: 09:19:07 Oxygen Equipment Technician: ARACELIS MEASUREMENT RESULTS: Intervals: Rate: 71 [place]: 142 QRSD: 90 QT: 360 QTc: 391 [place]: P: 36 [place]: 142 QRS: -49 T: -20 INTERPRETIVE STATEMENTS: Normal sinus rhythm Left axis deviation Septal infarct, age undetermined Abnormal ECG Compared to ECG 04/24/2018 13:38:22 Left ventricular hypertrophy no longer present Myocardial infarct finding still present Electronically Signed On 11-24-18 09:59:47 CDT by Vitaliy Marie
--- NOTE | 2018-11-24 10:05 | ER ---
Nurse's Notes [facility] Name: Axel Contreras Age: 43 yrs Sex: Male : 1975 Arrival Date: 11/24/2018 Time: 09:18 Bed 3 Private MD: Diagnosis: Other chest pain;Type 2 diabetes mellitus Presentation: 11/24 09:18 Presenting complaint: Patient states: Chest pain that began this morning. Hx of CABG. ss Patient reports he had been feeling intermittent sharp pain in chest over the past few days and had been seen by a physician and was told there was nothing wrong. Transition of care: patient was not received from another setting of care. Onset of symptoms was November 24, 2018. Risk Assessment: Do you want to hurt yourself or someone else? Patient reports no desire to harm self or others. Initial Sepsis Screen: Does the patient meet any 2 criteria? No. Patient's initial sepsis screen is negative. Does the patient have a suspected source of infection? No. Patient's initial sepsis screen is negative. Care prior to arrival: None. 09:18 Acuity: GEOVANNA 2 ss 09:18 Method Of Arrival: Ambulatory Historical: - Allergies: 09:22 No Known Allergies; aa5 - Home Meds: 09:22 Metoprolol Tartrate Oral [Active]; Metformin Oral [Active]; atorvastatin oral oral aa5 [Active]; - PMHx: 09:22 Diabetes - NIDDM; Hypertension; Myocardial infarction; aa5 - PSHx: 09:22 CABG; aa5 - Immunization history:: Adult Immunizations. - Social history:: Smoking status: . - Ebola Screening: : Patient denies travel to an Ebola-affected area in the 21 days before illness onset. - Family history:: not pertinent. Screenin:21 Abuse screen: Denies threats or abuse. Nutritional screening: No deficits noted. tw2 Tuberculosis screening: No symptoms or risk factors identified. Fall Risk None identified. Assessment: 09:20 Reassessment: provider at bedside at this time. tw2 09:20 General: Appears uncomfortable, Behavior is calm, cooperative. Pain: Complains of pain aa5 in mid-sternal area Pain does not radiate. Pain currently is 4 out of 10 on a pain scale. Quality of pain is described as Pt states "like something is poking me" Pain began Pt states "It's been going on for a while and I went to the ER in [facility] about 3 weeks ago but they couldn't find anything wrong but today it got worse" Is intermittent. Neuro: Level of Consciousness is awake, alert, obeys commands, Oriented to person, place, time, situation. Cardiovascular: Heart tones S1 S2 present Edema is absent. Rhythm is sinus rhythm. Respiratory: Airway is patent Respiratory effort is even, unlabored, Respiratory pattern is regular, symmetrical, Breath sounds are clear bilaterally. GI: Abdomen is flat, non-distended, Bowel sounds present X 4 quads. Abd is soft and non tender X 4 quads. Reports nausea, vomiting, since this morning. : No signs and/or symptoms were reported regarding the genitourinary system. EENT: No signs and/or symptoms were reported regarding the EENT system. Derm: Skin is pink, warm \\T\\ dry. Musculoskeletal: Range of motion: intact in all extremities. 09:55 Reassessment: Patient is alert, oriented x 3, equal unlabored respirations, skin aa5 warm/dry/pink. Patient states feeling better. Pain: Pain currently is 0 out of 10 on a pain scale. 10:32 Reassessment: Patient appears in no apparent distress at this time. Patient and/or tw2 family updated on plan of care and expected duration. Pain level reassessed. Patient is alert, oriented x 3, equal unlabored respirations, skin warm/dry/pink. 11:00 Reassessment: Pt resting in bed with eyes closed, respirations even and unlabored, skin aa5 is pink/warm/dry. . 12:05 Reassessment: Patient appears in no apparent distress at this time. Patient and/or tw2 family updated on plan of care and expected duration. Pain level reassessed. Patient is alert, oriented x 3, equal unlabored respirations, skin warm/dry/pink. Vital Signs: 09:21 BP 158 / 96; Pulse 78; Resp 20; Pulse Ox 100% on R/A; tw2 09:21 Weight 89.81 kg (R); Height 5 ft. 9 in. (175.26 cm) (R); Pain 4/10; aa5 09:32 Temp 98.2(TE); tw2 10:32 BP 148 / 94; Pulse 64; Resp 15; Pulse Ox 100% on R/A; tw2 11:30 BP 144 / 99; Pulse 65; Resp 17; Pulse Ox 100% on R/A; tw2 12:05 BP 143 / 94; Pulse 71; Resp 17; Pulse Ox 100% on R/A; tw2 09:21 Body Mass Index 29.24 (89.81 kg, 175.26 cm) aa5 ED Course: 09:18 Patient arrived in ED. bd 09:20 Jack Haywood MD is Attending Physician. kenneth 09:20 Jodi Nuno, RN is Primary Nurse. aa5 09:20 Inserted saline lock: 20 gauge in right antecubital area, using aseptic technique. tw2 Blood collected. 09:21 Arm band placed on. tw2 09:21 Patient has correct armband on for positive identification. Placed in gown. Bed in low aa5 position. Call light in reach. Side rails up X2. spring maker on. Pulse ox on. NIBP on. 09:25 Triage completed. ss 09:55 XRAY Chest (1 view) In Process Unspecified. EDMS 10:03 Tree Adhikari MD is Hospitalizing Provider. kenneth 10:35 EKG done, by accredited pharmacy technician. reviewed by Jack Haywood MD. at1 12:05 No provider procedures requiring assistance completed. Patient admitted, IV remains in tw2 place. Administered Medications: 09:34 Drug: Aspirin Chewable Tablet 162 mg Route: PO; aa5 09:59 Follow up: Response: No adverse reaction aa5 09:34 Drug: Zofran 4 mg Route: IVP; Site: right antecubital; aa5 09:59 Follow up: Response: No adverse reaction aa5 09:36 Drug: Pepcid 20 mg Route: IVP; Site: right antecubital; aa5 09:59 Follow up: Response: No adverse reaction aa5 09:37 Drug: morphine 4 mg Route: IVP; Site: right antecubital; aa5 09:58 Follow up: Response: No adverse reaction; Marked relief of symptoms; Pain is decreased aa5 09:38 Drug: Lovenox 1 mg/kg Route: Sub-Q; Site: right lower abdomen; aa5 09:59 Follow up: Response: No adverse reaction aa5 Outcome: 10:04 Decision to Hospitalize by Provider. kenneth 12:05 Admitted to Med/surg accompanied by tech, via wheelchair. tw2 12: Condition: stable 12:05 Instructed on the need for admit. 12:05 Admitted to Med/surg Report called to NANCY Melissa aa5 12:08 Patient left the ED. aa5 Signatures: Dispatcher [employer] EDLou Hernandez Corey, MD MD cha Calderon, Audri RN RN aa5 Mariluz Hurtado RN RN Susan Driver, disease intervention specialist EKG Tat1 Hilda Saunders RN RN tw2
--- NOTE | 2018-11-24 10:05 | EDPHYS ---
Physician Documentation [facility] Name: Axel Contreras Age: 43 yrs Sex: Male : 1975 Arrival Date: 11/24/2018 Time: 09:18 Bed 3 Private MD: ED Physician Jack Haywood HPI: 11/24 09:26 This 43 yrs old Male presents to ER via Ambulatory with complaints of Chest kenneth Pain. 09:26 The patient or guardian reports chest pain that is located primarily in the substernal kenneth area. Onset: this morning. The pain does not radiate. Associated signs and symptoms: The patient has no apparent associated signs or symptoms. The chest pain is described as dull, sharp. Modifying factors: The symptoms are alleviated by nothing. the symptoms are aggravated by nothing. Severity of pain: At its worst the pain was moderate in the emergency department the pain is unchanged. Historical: - Allergies: 09:22 No Known Allergies; aa5 - Home Meds: 09:22 Metoprolol Tartrate Oral [Active]; Metformin Oral [Active]; atorvastatin oral oral aa5 [Active]; - PMHx: 09:22 Diabetes - NIDDM; Hypertension; Myocardial infarction; aa5 - PSHx: 09:22 CABG; aa5 - Immunization history:: Adult Immunizations. - Social history:: Smoking status: . - Ebola Screening: : Patient denies travel to an Ebola-affected area in the 21 days before illness onset. - Family history:: not pertinent. ROS: 09:26 Constitutional: Negative for fever, chills, and weight loss, Eyes: Negative for injury, kenneth pain, redness, and discharge, ENT: Negative for injury, pain, and discharge, Neck: Negative for injury, pain, and swelling, Respiratory: Negative for shortness of breath, cough, wheezing, and pleuritic chest pain, Abdomen/GI: Negative for abdominal pain, nausea, vomiting, diarrhea, and constipation, Back: Negative for injury and pain, : Negative for injury, bleeding, discharge, and swelling, MS/Extremity: Negative for injury and deformity, Skin: Negative for injury, rash, and discoloration, Neuro: Negative for headache, weakness, numbness, tingling, and seizure, Psych: Negative for depression, anxiety, suicide ideation, homicidal ideation, and hallucinations, Allergy/Immunology: Negative for hives, rash, and allergies, Endocrine: Negative for neck swelling, polydipsia, polyuria, polyphagia, and marked weight changes, Hematologic/Lymphatic: Negative for swollen nodes, abnormal bleeding, and unusual bruising. 09:26 Cardiovascular: Positive for chest pain, of the chest. Exam: :26 Constitutional: This is a well developed, well nourished patient who is awake, alert, kenneth and in no acute distress. Head/Face: Normocephalic, atraumatic. Eyes: Pupils equal round and reactive to light, extra-ocular motions intact. Lids and lashes normal. Conjunctiva and sclera are non-icteric and not injected. Cornea within normal limits. Periorbital areas with no swelling, redness, or edema. ENT: Nares patent. No nasal discharge, no septal abnormalities noted. Tympanic membranes are normal and external auditory canals are clear. Oropharynx with no redness, swelling, or masses, exudates, or evidence of obstruction, uvula midline. Mucous membranes moist. Neck: Trachea midline, no thyromegaly or masses palpated, and no cervical lymphadenopathy. Supple, full range of motion without nuchal rigidity, or vertebral point tenderness. No Meningismus. Chest/axilla: Normal chest wall appearance and motion. Nontender with no deformity. No lesions are appreciated. Cardiovascular: Regular rate and rhythm with a normal S1 and S2. No gallops, murmurs, or rubs. Normal PMI, no JVD. No pulse deficits. Respiratory: Lungs have equal breath sounds bilaterally, clear to auscultation and percussion. No rales, rhonchi or wheezes noted. No increased work of breathing, no retractions or nasal flaring. Abdomen/GI: Soft, non-tender, with normal bowel sounds. No distension or tympany. No guarding or rebound. No evidence of tenderness throughout. Back: No spinal tenderness. No costovertebral tenderness. Full range of motion. Male : Normal genitalia with no discharge or lesions. Skin: Warm, dry with normal turgor. Normal color with no rashes, no lesions, and no evidence of cellulitis. MS/ Extremity: Pulses equal, no cyanosis. Neurovascular intact. Full, normal range of motion. Neuro: Awake and alert, GCS 15, oriented to person, place, time, and situation. Cranial nerves II-XII grossly intact. Motor strength 5/5 in all extremities. Sensory grossly intact. Cerebellar exam normal. Normal gait. Psych: Awake, alert, with orientation to person, place and time. Behavior, mood, and affect are within normal limits. 09:26 Musculoskeletal/extremity: DVT Exam: No signs of deep vein thrombosis. no pain, no swelling, no tenderness, negative Homans' sign noted on exam, no appreciated bluish discoloration, no erythema, no increased warmth. Vital Signs: 09:21 BP 158 / 96; Pulse 78; Resp 20; Pulse Ox 100% on R/A; tw2 09:21 Weight 89.81 kg (R); Height 5 ft. 9 in. (175.26 cm) (R); Pain 4/10; aa5 09:32 Temp 98.2(TE); tw2 10:32 BP 148 / 94; Pulse 64; Resp 15; Pulse Ox 100% on R/A; tw2 11:30 BP 144 / 99; Pulse 65; Resp 17; Pulse Ox 100% on R/A; tw2 12:05 BP 143 / 94; Pulse 71; Resp 17; Pulse Ox 100% on R/A; tw2 09:21 Body Mass Index 29.24 (89.81 kg, 175.26 cm) aa5 MDM: 09:[address] [facility] 09:41 Data reviewed: vital signs, nurses notes, lab test result(s), EKG, radiologic studies, kenneth plain films. 11/24 09:20 Order name: Basic Metabolic Panel; Complete Time: 10:53 tw2 11/24 09:20 Order name: CBC with Diff; Complete Time: 10:02 2 11/24 09:20 Order name: LFT's; Complete Time: 10:53 tw2 11/24 09:20 Order name: Magnesium; Complete Time: 10:53 tw2 11/24 09:20 Order name: NT PRO-BNP; Complete Time: 10:53 tw2 11/24 09:20 Order name: PT-INR; Complete Time: 10:02 11/24 09:20 Order name: Troponin (emerg Dept Use Only); Complete Time: 10:53 tw2 11/24 09:20 Order name: XRAY Chest (1 view); Complete Time: 10:53 2 11/24 09:20 Order name: EKG; Complete Time: 09:21 tw2 11/24 09:20 Order name: Cardiac monitoring; Complete Time: 09:20 tw2 11/24 09:20 Order name: EKG - Nurse/Tech; Complete Time: 09:20 tw2 11/24 09:20 Order name: IV Saline Lock; Complete Time: 09:20 tw2 11/24 09:20 Order name: Labs collected and sent; Complete Time: :20 tw2 11/24 09:20 Order name: O2 Per Protocol; Complete Time: :20 tw2 11/24 09:20 Order name: O2 Sat Monitoring; Complete Time: 09:20 tw2 Administered Medications: 09:34 Drug: Aspirin Chewable Tablet 162 mg Route: PO; aa5 09:59 Follow up: Response: No adverse reaction aa5 09:34 Drug: Zofran 4 mg Route: IVP; Site: right antecubital; aa5 09:59 Follow up: Response: No adverse reaction aa5 09:36 Drug: Pepcid 20 mg Route: IVP; Site: right antecubital; aa5 09:59 Follow up: Response: No adverse reaction aa5 09:37 Drug: morphine 4 mg Route: IVP; Site: right antecubital; aa5 09:58 Follow up: Response: No adverse reaction; Marked relief of symptoms; Pain is decreased aa5 09:38 Drug: Lovenox 1 mg/kg Route: Sub-Q; Site: right lower abdomen; aa5 09:59 Follow up: Response: No adverse reaction aa5 Disposition: 11/24/18 10:04 Hospitalization ordered by Tree Adhikari for Observation. Preliminary diagnosis are Other chest pain, Type 2 diabetes mellitus. - Bed requested for Telemetry/MedSurg (observation). - Status is Observation. aa5 - Condition is Stable. - Problem is new. - Symptoms have improved. UTI on Admission? No Signatures: Dispatcher [employer] Lima Casillas RN RN Jack Johnson MD MD cha Calderon, Audri, RN RN aa5 Hilda Saunders RN RN tw2 Corrections: (The following items were deleted from the chart) 11:27 10:04 Hospitalization Ordered by Tree Adhikari MD for Observation. Preliminary diagnosis dw is Other chest pain; Type 2 diabetes mellitus. Bed requested for Telemetry/MedSurg (observation). Status is Observation. Condition is Stable. Problem is new. Symptoms have improved. UTI on Admission? No. kenneth 12:08 11:27 11/24/2018 10:04 Hospitalization Ordered by Tree Adhikari MD for Observation. aa5 Preliminary diagnosis is Other chest pain; Type 2 diabetes mellitus. Bed requested for Telemetry/MedSurg (observation). Status is Observation. Condition is Stable. Problem is new. Symptoms have improved. UTI on Admission? No. dw
[2018-11-24 10:06] LABS: ALT/SGPT 25 U/L (12-78); AST/SGOT 28 U/L (15-37); Albumin 3.8 g/dL (3.4-5.0); Alkaline Phosphatase 74 U/L (45-117); BUN Blood Urea Nitrogen 17 mg/dL (7-18); Bicarbonate 21 mmol/L (21-32); Bilirubin Direct < 0.1 mg/dL (0-0.2); Bilirubin Total 0.6 mg/dL (0.2-1.0); Glucose Level 263 mg/dL (74-106); Magnesium 2.2 mg/dL (1.8-2.4); NT PRO-BNP 91 pg/mL (<125); Potassium 4.6 mmol/L (3.5-5.1); Protein, Total 7.5 g/dL (6.4-8.2); Sodium Level 138 mmol/L (136-145); Troponin (Emerg Dept Use Only) < 0.02 ng/mL (0.0-0.045)
--- NOTE | 2018-11-24 10:25 | RAD REPORT ---
EXAM DESCRIPTION: RAD - Chest Single View - 11/24/2018 9:54 am CLINICAL HISTORY: Chest pain COMPARISON: April 24 TECHNIQUE: AP portable chest image was obtained 0938 hours . FINDINGS: Lung volumes are low. No acute lung parenchymal process. Sternotomy wires are in place. He art and vasculature are normal. No measurable pleural effusion and no pneumothorax. No acute bony abn ormality seen. No acute aortic findings suspected. IMPRESSION: No acute cardiopulmonary process. No significant change from comparison.
--- NOTE | 2018-11-24 10:53 | P.HP ---
Certification for Inpatient Patient admitted to: Observation With expected LOS: <2 Midnights Practitioner: I am a practitioner with admitting privileges, knowledge of patient current condition, hospital course, and medical plan of care. Services: Services provided to patient in accordance with Admission requirements found in Title 42 Section 412.3 of the Code of Federal Regulations Patient History Date of Service: 11/24/18 Primary Care Provider: None Reason for admission: Chest pain History of Present Illness: This is a 43-year-old male with past medical history of diabetes, hypertension, [place], CABG who presented to the emergency room with complaints of chest pain and shortness of breath. Per patient, pain is located upper left side of the chest along with base of the left neck. He describes it as sharp, nonradiating pain that has been intermittent for the past few months. Pain is associated with shortness of breath, and dizziness. The pain was progressively getting worse, patient got scared that he may be having another heart attack and came to the emergency room. In the ER, blood pressure was 158/96, heart rate of 78, respirations of 20, satting 100% on room air with and a BMI of 29.24. Labs were remarkable for blood sugars elevated at 263, troponins negative times. EKG was with normal sinus rhythm. Chest x-ray without any acute abnormalities. He received aspirin , Zofran, Pepcid, morphine and Lovenox in the ER. At the time of my exam, he was alert oriented x3, in no acute distress and pain had almost resolved. 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 Allergies No Known Allergies Allergy (Unverified 01/13/18 23:54) Home medications list reviewed: Yes Home Medications: Metformin HCl 1 tab PO BID 01/13/18 Metoprolol Tartrate 1 tab PO BID 01/13/18 Aspirin 81 mg PO DAILY #30 tab.chew 01/14/18 Atorvastatin Calcium [Lipitor*] 20 mg PO BEDTIME #30 tab 01/14/18 - Past Medical/Surgical History Diabetic: Yes -: Diabetes -: HTN -: Hyperlipidemia -: [place] -: CABG x 5 - Family History Father -: Heart disease, Hypertension, Diabetes Mother -: Diabetes, Other (see notes) Notes: seizures - Social History Alcohol use: Yes CD- Drugs: No Caffeine use: Yes Review of Systems 10-point ROS is otherwise unremarkable Physical Examination - Physical Exam General: Alert, In no apparent distress, Oriented x3 HEENT: Atraumatic, PERRLA, Mucous membr. moist/pink, EOMI, Sclerae nonicteric Neck: Supple, 2+ carotid pulse no bruit, No LAD, Without JVD or thyroid abnormality Respiratory: Clear to auscultation bilaterally, Normal air movement Cardiovascular: Regular rate/rhythm, Normal S1 S2 Gastrointestinal: Normal bowel sounds, No tenderness Musculoskeletal: No tenderness Integumentary: No rashes Neurological: Normal gait, Normal speech, Normal strength at 5/5 x4 extr, Normal tone, Normal affect Lymphatics: No axilla or inguinal lymphadenopathy - Studies Laboratory Data (last 24 hrs) 11/24/18 09:18: PT 10.1, INR 0.85 11/24/18 09:18: WBC 6.9, Hgb 13.0 L, Hct 36.6 L, Plt Count 279 11/24/18 09:18: Sodium 138, Potassium 4.6, BUN 17, Creatinine 1.10, Glucose 263 H, Magnesium 2.2, Total Bilirubin 0.6, AST 28, ALT 25, Alkaline Phosphatase 74 Assessment and Plan - Problems (Diagnosis) (1) Chest pain, rule out acute myocardial infarction Current Visit: No Status: Acute Plan: Admit to floor with tele Heart score:3 -troponin negative x1. Trend troponins -EKG normal sinus rhythm -chest pain guidelines: Metoprolol, aspirin, Plavix, statin and SEBASTIEN-inhibitor -morphine as needed for pain -sublingual nitro as needed for pain -echo ordered, pending -stress test ordered, pending. If abnormal, will consult cardiology -if cardiac testing negative, patient will benefit from outpatient cardiology evaluation. Information for cardiology will be provided to him upon discharge (2) DM2 (diabetes mellitus, type 2) Current Visit: No Status: Acute Plan: Accu-Cheks, mild sliding scale insulin. -continue to monitor blood sugars and make adjustments as needed Qualifiers: Diabetes mellitus retirement insulin use: without retirement use Diabetes mellitus complication status: with hyperglycemia Qualified Code(s): E11.65 - Type 2 diabetes mellitus with hyperglycemia (3) HTN (hypertension) Current Visit: No Status: Chronic Plan: Stable, continue to monitor and adjust medications as needed Qualifiers: Hypertension type: essential hypertension Qualified Code(s): I10 - Essential (primary) hypertension (4) S/P CABG x 5 Current Visit: No Status: Chronic - Plan DVT prophylaxis: Aspirin/Plavix GI prophylaxis: None Diet: Diabetic; NPO after midnight Disposition: Admit to floor with tele. Pending cardiac workup. Anticipate discharge home in the next 24 hr if stress test and echo normal, with outpatient cardiology followup. Discharge Plan: Home Plan to discharge in: 24 Hours - Advance Directives Does patient have a Living Will: No Does patient have a Durable POA for Healthcare: No Time Spent Managing Pts Care (In Minutes): 55
[2018-11-24] MEDS ORDERED: ALPRAZOLAM 0.25 MG TABLET PO PRN (12:17)
[2018-11-24] MEDS: INSULIN -REGULAR HUMAN 50 UNIT/0.5 ML ML SQ SCH ×3 (12:17→21:00)
[2018-11-24] MEDS ORDERED: NITROGLYCERIN 0.4 MG/TAB SL PRN (12:17)
[2018-11-24 12:22] VITALS: BMI 28.0
[2018-11-24 13:09] LABS: HDL Cholesterol 33 mg/dL (40-60); LDL Cholesterol, Calculated ND (<130)
[2018-11-24 13:39] LABS: LDL, Direct 113 mg/dL (100-129)
[2018-11-24] MEDS: MORPHINE 4 MG/ML SYR IV PRN ×2 (15:42→21:21)
--- NOTE | 2018-11-24 15:50 | ECHO ---
HEIGHT: 5 ft 9 in WEIGHT: 190 lb 0 oz DATE OF STUDY: 11/24/[address]: Lana Adhikari MD 2-DIMENSIONAL: YES M.MODE: YES DOPPLER: YES COLOR FLOW: YES TDS: NO PORTABLE: NO DEFINITY: NO BUBBLE STUDY: NO DIAGNOSIS: CHEST PAIN CARDIAC HISTORY: CATHERIZATION: YES SURGERY: YES PROSTHETIC VALVE: NO PACEMAKER: NO MEASUREMENTS (cm) DIASTOLIC (NORMALS) SYSTOLIC (NORMALS) IVSd 1.0 (0.6-1.2) LA Diam 2.9 (1.9-4.0) LVEF 58% LVIDd 4.7 (3.5-5.7) LVIDs 3.3 (2.0-3.5) %FS 30% LVPWd 1.0 (0.6-1.2) Ao Diam 2.8 (2.0-3.7) 2 DIMENSIONAL ASSESSMENT: RIGHT ATRIUM: NORMAL LEFT ATRIUM: NORMAL RIGHT VENTRICLE: NORMAL LEFT VENTRICLE: NORMAL TRICUSPID VALVE: NORMAL MITRAL VALVE: NORMAL PULMONIC VALVE: NORMAL AORTIC VALVE: NORMAL PERICARDIAL EFFUSION: NONE AORTIC ROOT: NORMAL LEFT VENTRICULAR WALL MOTION: PARADOXICAL SEPTAL MOTION SEEN WITH THORACOTOMY. DOPPLER/COLOR FLOW: MILD TRICUSPID REGURGITATION. NORMAL RIGHT VENTRICULAR SYSTOLIC PRESSURE. COMMENTS: NORMAL LEFT VENTRICULAR EJECTION FRACTION WITH PARADOXICAL SEPTAL MOTION. MILD TRICUSPID REGURGITATION. TECHNOLOGIST: Shyanne GATES
[2018-11-24] MEDS: CLOPIDOGREL 75 MG TABLET PO SCH (18:15)
[2018-11-24 20:52] LABS: Urine Appearance CLEAR; Urine Bilirubin NEGATIVE (NEG); Urine Blood NEGATIVE (NEG); Urine Color YELLOW; Urine Glucose 3+ (NEG); Urine Protein NEGATIVE (NEG); Urine Specific Gravity >=1.030 (1.005-1.030); Urine Urobilinogen 0.2 mg/dL (0.2-1.0)
[2018-11-24 20:53] LABS: Urine Microscopic Reflex NO UMIC
[2018-11-24] MEDS: METOPROLOL TAR 50 MG TAB PO SCH (21:14)
[2018-11-25 04:20] LABS: Absolute Lymphocytes (CBC) 2.6 K/uL (0.7-4.9); Hematocrit 34.9 % (39.6-49.0); Lymphocytes % 36.4 % (15.3-44.8); MPV 8.3 fL (7.6-11.3); RBC Red Blood Cell Count 4.08 M/uL (4.33-5.43)
[2018-11-25 04:30] LABS: Potassium 4.3 mmol/L (3.5-5.1)
[2018-11-25] MEDS: INSULIN -REGULAR HUMAN 50 UNIT/0.5 ML ML SQ SCH ×4 (07:30→20:39)
[2018-11-25] MEDS ORDERED: REGADENOSON 0.4 MG/5 ML SYR IV ONE (08:09)
[2018-11-25] MEDS: METOPROLOL TAR 50 MG TAB PO SCH ×2 (09:35→20:39)
[2018-11-25] MEDS: LISINOPRIL 10 MG TAB PO SCH (09:35)
[2018-11-25] MEDS: CLOPIDOGREL 75 MG TABLET PO SCH (09:35)
[2018-11-25] MEDS: ASPIRIN EC 81 MG TAB PO SCH (09:36)
[2018-11-25] MEDS: MORPHINE 4 MG/ML SYR IV PRN ×2 (09:37→20:40)
--- NOTE | 2018-11-25 10:26 | RAD REPORT ---
EXAM DESCRIPTION: NM - Rest Stress Cardiac Imaging - 11/25/2018 9:40 am CLINICAL HISTORY: Chest pain COMPARISON: January 2018 TECHNIQUE: The patient was administered 10.2 mCi of Tc 99m Sestamibi prior to resting SPECT imaging of the heart. The patient was then administered 30.2 mCi of Tc 99m Sestamibi following exercise or ph armacologic stress. Multiplanar SPECT images were reviewed. FINDINGS: The end diastolic volume is 165 ml, the end systolic volume is 109 ml, and the ejection fr action is 34 %. Ventricular volumes are relatively similar to the 2018 study. Current ejection fracti on is slightly worse. EF was 40% on the January 2018 study. Inferior wall shows a moderately large fixed perfusion defect similar or slightly worse than comparis on. Diaphragm attenuation artifact and inferior wall scarring are both possible. Correlation can be m areli with EKG findings are history. Prior examination showed decreased activity along the anterior wall on stress imaging with normal act ivity seen on the rest sequencing. This similar pattern is present on the current study. IMPRESSION: Diminished activity along the anterior wall on stress imaging similar to prior study. Fi nding is suspicious for stress ischemia. Large inferior wall fixed defect is similar to 2018 as well. This could be diaphragm attenuation laura fact or scarring. Correlation is needed with history an EKG findings. Enlarged ventricular volumes not substantially different from prior study. A poor ejection fraction o f 34% is identified, decreased from 40% on the January 2018 study.
[2018-11-25 10:49] LABS: Ferritin 330.6 ng/mL (26-388)
[2018-11-25 11:11] LABS: Folic Acid, (Folate) 14.4 ng/mL (3.1-17.5)
--- NOTE | 2018-11-25 12:50 | TREADPHA ---
DX: CHEST PAIN Date of Study: 11/25/2018 Ht: 5 9 Wt: 190 lb 0 oz Consulting Physician: SHERINE MEDICATIONS: XANAX, ASPIRIN, PLAVIX, NOVOLIN-R, LOPRESSOR, PRINIVIL, NITRAOSTAT, METFORMIN HISTORY: 43 YEAR OLD MALE WITH COMPLAINTS OF CHEST PAIN. HISTORY OF CORONARY ARTERY BYPASS SURGERY, HYPERTENION, DIABETES TYPE II, AND MYOCARDIAL INFARCTION. PHYSICIAL EXAMINATION: RESTING B.P.: 146/93 RESTING H.R.: 62 RESTING EKG: NORMAL SINUS RHYTHM PROTOCOL: LEXISCAN EXERCISE TIME: 3:30 B.P. AT PEAK STRESS: 139/87 IMPRESSION: LEXISCAN STRESS TEST PERFORMED. CARDIOLITE INJECTED PER PROTOCOL. NO SUPRAVENTRICULAR TACHYCARDIA. NO VENTRICULAR TACHYCARDIA. NO ARRYTHMIAS NOTED. PATIENT DENIED CHEST PAIN. PATIENT TOLERATED WELL.
--- NOTE | 2018-11-25 13:14 | PN ---
Date of Progress Note: 11/25/2018 Patient is seen and examined. Chart reviewed and case discussed with RN and Dr. Martinez. The patien t had multiple complaints this morning including pain around his ribs and center of his chest includi ng left shoulder pain with movement along with questions about his anemia and side effects of metform in making him angry and upset which I explained to him is not an illicit side effect of this medicati on. Physical Examination: Vital Signs: Temperature 96.9, heart rate 62, blood pressure 147/98, respirations 18. O2 at 100% on room air. General: Awake, alert, oriented x3, in some mild distress. CV: S1, S2. Regular rate and rhythm. Peripheral pulses present. No murmurs. Respiratory: Moving air well bilaterally. No wheezing or stridor. No use of accessory muscles. Gastrointestinal: Abdomen is soft, nontender, nondistended. Positive bowel sounds. No guarding or rigidity. Extremities: No clubbing, cyanosis, or edema. No calf tenderness. Neuro: Cranial nerves 2 through 12 intact grossly. No focal neurological deficit. Speech is normal . Laboratory Data: Sodium 138, potassium 4.3, chloride 106, CO2 of 29, BUN 19, creatinine 0.92, glucos e 161, calcium 8.3, magnesium pending. Iron is 81, TIBC 353, transferrin 252, ferritin is 330. Alie min B12 level is 220, folate is 14.4. WBC 7.2, H and H 12.5 and 34.9, platelets 220, neutrophils 49% . Cardiac stress test shows anterior wall stress ischemia, diminished activity. Large inferior wall fixed defect similar to 2018, could be diaphragm attenuation, artifact or scarring, enlarged ventric ular volumes, not substantially different. Poor EF of 34%. Echocardiogram shows EF of 58%. Paradox ical motion is noted. Assessment And Plan: A 43-year-old male with; 1.Unstable angina. ACS has been ruled out. However, cardiac stress test is positive for stress-ind uced ischemia in the anterior wall. Case discussed with Cardiology. May need further intervention. Continue with chest pain guidelines. Aspirin, statin, Plavix, SEBASTIEN inhibitor and beta-quique. Nitr oglycerin and morphine as needed. Echocardiogram shows EF 58% with paradoxical motion. 2.Diabetes mellitus type 2, bqu-dyebazg-talkwinuc with hyperglycemia. We will continue with sliding scale insulin. Monitor blood glucose levels. 3.Essential hypertension, stable. Continue home medications. 4.Coronary artery disease, [place] artery, [place] heart, status post CABG, 5 vessel disease. Continue aspirin and Plavix. 5.Overweight. BMI 28.1. 6.Anemia, likely anemia of chronic disease. Iron studies are within normal limits. Patient does vasquez ve low normal B12. Recommend supplementation. Patient does have history of drinking. He binge drin ks on the weekends. He has been counseled. /[facility] Voice ID: [id number] Report ID: [id number]
--- NOTE | 2018-11-26 00:35 | CON ---
Date of Consultation: 11/25/[address] Jackson's service on 11/24/2018. Patient was seen on 11/25/2018. Reason For Consultation: Chest pain. History Of Present Illness: Mr. Contreras is a 43-year-old [place] male, had bypass surgery in [address] Rob in [place]. At that time, he had a LAZAR to the LAD, graft to the OM and a vei n graft to the RCA, PDA. He has done well since. He has a history of hypertension, diabetes, and dy slipidemia. Has been having some chest pain left-sided radiating to the left shoulder and back witho ut any nausea, vomiting, or diaphoresis. Symptoms are exertional and nonexertional. He had an echoc ardiogram today, which was normal with ejection fraction 58%. Has paradoxical septum consistent with history of CABG. A stress test that was done today; however, showed an ejection fraction of 34% wit h anterior ischemia. Past Medical History: As stated above. Allergies: NONE. Review of Systems: Negative. Social History: Negative. Family History: Positive for heart disease. Medications At Home: Aspirin, Plavix, Lipitor, metoprolol, and metformin. Physical Examination: Vital Signs: Stable. Afebrile. General: No acute distress. HEENT: Negative. Neck: Supple with no bruit. Chest: Clear. Cardiac: Revealed a regular rhythm and rate. No murmurs, gallops, or rubs. Abdomen: Benign. Extremities: Revealed no clubbing, cyanosis, or edema. Diagnostic Data: Basically his triglyceride was 592, cholesterol was 203, glucose 180, creatinine of 0.92. Chest x-ray was negative. EKG showed left axis deviation, sinus rhythm, and old septal OH. Impression And Plan: Patient with history of coronary artery bypass grafting to the RCA, OM, and HERRERA A to the LAD in 2017 with chest pain, dyslipidemia, hypertension, diabetes, and abnormal stress test. We will recommend left heart catheterization to define his coronary anatomy. Patient understands t he risk and the benefits of the procedure and agrees to proceed. Eventually, patient should have fen ofibrate added to his regimen. His triglyceride is 592. We will make further decisions depending wh at the catheterization showed. [place]/[facility] Voice ID: [id number] Report ID: [id number]
[2018-11-26] MEDS ORDERED: NA CHLORIDE 0.9% 1,000 ML ONE (05:55)
[2018-11-26] MEDS: CLOPIDOGREL 75 MG TABLET PO SCH (06:00)
[2018-11-26] MEDS: ASPIRIN EC 81 MG TAB PO SCH (06:00)
[2018-11-26] MEDS: LISINOPRIL 10 MG TAB PO SCH (06:01)
[2018-11-26] MEDS: METOPROLOL TAR 50 MG TAB PO SCH ×2 (06:01→22:09)
[2018-11-26] MEDS: INSULIN -REGULAR HUMAN 50 UNIT/0.5 ML ML SQ SCH ×4 (08:11→21:00)
[2018-11-26] MEDS ORDERED: HEPA 1000U/500MLS 1,000 UNIT/500 ML BAG IV ONE (15:27)
[2018-11-26] MEDS ORDERED: LIDOCAINE 1% MPF 30 ML VIAL ONE (15:27)
[2018-11-26] MEDS ORDERED: FENTANYL CITR 100 MCG/2 ML ONE (15:39)
[2018-11-26] MEDS ORDERED: MIDAZOLAM HCL 2 MG/2 ML INJ ONE ×2 (15:39→16:12)
[2018-11-26] MEDS ORDERED: NA CHLORIDE 0.9% 50 ML ONE (15:39)
[2018-11-26] MEDS ORDERED: ATROPINE SULF 1 MG/10 ML SYR IV ONE (15:39)
--- NOTE | 2018-11-26 16:48 | PN ---
Date of Progress Note: 11/26/2018 Subjective: Patient seen and examined. Chart reviewed and case discussed with RN and Dr. Marie. Patient continues to have some pain substernally. Medications: List reviewed. Physical Examination: Vital Signs: Temperature 97.3, heart rate 60, blood pressure 122/74, respirations 18, O2 at 100% on room air. General: Awake, alert, oriented x3. Some mild distress. CV: S1, S2. No murmurs. Respiratory: Moving air well bilaterally. Abdomen: Soft, nontender, nondistended. Positive bowel sounds. Extremities: No clubbing, cyanosis, edema. Neurologic: Nonfocal. Laboratory Data: Pending. Assessment: A 43-year-old male with: 1. Unstable angina. Troponin negative. However, cardiac stress test is positive. Cardiology recommends cardiac cath scheduled for today due to high risk of disease. Patient has 5 vessel CABG Continue chest pain guidelines. 2. Diabetes mellitus type 2, tqu-pxmkwra-rhctdokvi with hyperglycemia. We will continue sliding scale insulin. Monitor blood glucose levels. 3. Essential hypertension, stable. 4. Coronary artery disease, [place] artery, [place] heart, status post coronary artery bypass grafting, 5 vessel disease. Continue aspirin and Plavix. 5. Anemia, likely anemia of chronic disease. Iron studies within normal limits. 6. Alcohol abuse, counseled. Plan: Cardiac cath. /[facility] Voice ID: [id number] Report ID: [id number] MTDD
[2018-11-26] MEDS ORDERED: ATORVASTATIN 80 MG TAB PO SCH (21:00)
--- NOTE | 2018-11-27 03:30 | OP ---
Surgeon: Vitaliy Marie MD Procedure: Left heart catheterization; coronary angiography, angiography of the saphenous vein graft s, left internal mammary artery; percutaneous coronary intervention of an 80% stenosis in the main kelley dy of the circumflex successful with 3.5 x 16 Synergy stent. Procedure Findings: The patient had totally occluded LAD, totally occluded right coronary, totally o ccluded obtuse marginal. Saphenous vein graft to the right was patent and good. Saphenous vein kt t to the obtuse marginal was patent and good. LAZAR to LAD artery was good. There was an 80% stenosi s in the body of the circumflex. The circumflex gave rise to 2 very large posterolateral branches, f elt to be an important artery, so that was the artery we stented, a successful stent. No LV gram was done. Procedure In Detail: The patient had an abnormal Cardiolite, chest pain, history of bypass surgery. He was brought to the cardiac laborer carpentry dock in a fasting state sedated with Versed and fentanyl. Prepare d and draped in usual sterile fashion. Right femoral artery was used. The artery was entered using an 18-gauge needle, cannulated with a wire, 4-Luxembourgish sheath was used to do diagnostic pictures. JL4, JR4, and multipurpose A2 were used. Because of the amount of dye given, we did not want to do an LV gram to limit the amount of dye. Once we saw that a stent was required, we changed to a 6-Luxembourgish sh [facility] using an exchange technique. We used a 6-Luxembourgish XB 3.5 with side holes guide. We used a Jewels wire to cross the lesion, we pre-dilated the lesion with a 3.5 x 15 Emerge balloon to 10 atmospheres . We then placed a 3.5 x 16 Synergy stent inflated to 14 atmospheres. 0% residual stenosis. Compli cations from the procedure, none. He got Angiomax demonstrated activated clotting time over 400 seco nds before we put any hardware into the arteries. At the end of the procedure, Angiomax was stopped. He will be loaded with Effient and he will be treated with aspirin, Plavix, statin, SEBASTIEN inhibitor, and beta-quique. HENRIQUE/KAIA Voice ID: [id number] Report ID: [id number]
[2018-11-27] MEDS: INSULIN -REGULAR HUMAN 50 UNIT/0.5 ML ML SQ SCH (07:30)
[2018-11-27] MEDS: CLOPIDOGREL 75 MG TABLET PO SCH (08:23)
[2018-11-27] MEDS: METOPROLOL TAR 50 MG TAB PO SCH (08:23)
[2018-11-27 08:24] VITALS: BP 121/76
[2018-11-27] MEDS: ASPIRIN EC 81 MG TAB PO SCH (08:24)
[2018-11-27] MEDS: LISINOPRIL 10 MG TAB PO SCH (08:24)
[2018-11-27 09:25] VITALS: O2SAT 99
[2018-11-27 09:41] VITALS: TEMP 96.8
--- NOTE | 2018-11-27 13:27 | PN ---
Date of Progress Note: 11/27/2018 Mr. Contreras had a heart catheterization yesterday showing patent LAZAR to the LAD and patent saphenous vein graft to the OM and PDA. He had an 80% stenosis in the proximal circumflex before [address] e marginal. Dr. Marie put a stent in his proximal LAD. He had an uneventful night. No chest pain. No telemetry changes. No congestive heart failure. Entry site of the catheterization appears to b e intact without any hematoma. He can go home on his home medication, which will include statins, be ta-blockers, aspirin and Plavix. I will discuss the case further with Dr. Jackson. CLINTON/KAIA Voice ID: [id number] Report ID: [id number]
--- NOTE | 2018-11-28 10:23 | DS ---
Date of Discharge: 11/27/2018 Consultants: 1.Dr. Vitaliy Marie. 2.Dr. Zelalem Martinez with Cardiology. Procedures: On 11/25/2018, cardiac stress test showed diminished activity along the anterior wall on stress imaging similar to prior study. Findings suspicious for stress ischemia. Large inferior wal l fixed defect similar to 2018 as well could be diaphragm attenuation artifact or scarring. Poor eje ction fraction of 34%. Procedures on the 11/26/2018, left heart catheterization, coronary angiograph y, angiography of the saphenous vein graft, left internal mammary artery, percutaneous coronary inter vention of 80% stenosis in the main body of the circumflex successful with stent. Admitting Diagnoses: 1.Chest pain, unstable angina, rule out acute coronary syndrome. 2.Diabetes mellitus type 2 without long-term use of insulin with hyperglycemia. 3.Essential hypertension. 4.Coronary artery disease, [place] artery, [place] heart, status post coronary artery bypass graft, 5 vessel disease. Discharge Diagnoses: 1.Acute coronary syndrome. Patient had a positive stress test, required heart catheterization with stent in the circumflex that had 80% blockage. 2.Diabetes mellitus type 2 ldu-jlkmsfu-wqrjdvykx with hyperglycemia. 3.Hypertension, stable. 4.Coronary artery disease, [place] artery, [place] heart, status post coronary artery bypass graft wit h angina. 5.Anemia likely due to anemia of chronic disease, stable. 6.Alcohol abuse, counseled. Hospital Course: Patient is a 43-year-old male with significant past medical history of diabetes, hy pertension, history of CO and subsequent CABG, 5 vessel, who comes in with chest pain. The patient w as started on chest pain guidelines. Cardiology was consulted. Patient had a cardiac stress test ob tained, which was positive for stress-induced ischemia. Troponin levels, however, were negative. Pa helgaaime's triglyceride levels were significantly elevated at 592. Cholesterol was 203, LDL was 113, HD L was low at 33. The patient was counseled. Patient was then taken for heart catheterization and wa s found to have 80% stenosis in the circumflex, which was stented. The patient tolerated the procedu re well. His pain improved. Patient was counseled regarding his alcohol use. He denies any tobacco use. Patient will also need to have dietary changes. His triglycerides and cholesterol are elevate d. His statin dose will be increased to 80 mg. Regarding his anemia, the patient has normal iron st udies, has low normal level of vitamin B12, which is likely due to his alcohol. He will need to disc ontinue alcohol use and supplement with vitamin B12. Patient was also provided a list of primary car e physicians in the area as he is new to [facility] and also provided contact information for his cardiolog ist, Dr. Marie. He will need to follow up regularly, the patient was then cleared for discharge. S ymptoms were resolved. Medications reviewed. Follow up with primary care physician in 1 week. Foll ow up with radio mechanic, Dr. Marie, in 2 weeks. Return to ER for worsening condition. Hold metform in for 48 hours post heart catheterization. Diet: Diabetic. Activity: As tolerated. Return to work after Cardiology clearance as outpatient. No heavy lifting. Physical Examination: General: Awake, alert, oriented. No acute distress. CVS: S1, S2. Respiratory: Moving air well bilaterally. Abdomen: Abdomen is soft, nontender, nondistended. Positive bowel sounds. Extremities: No clubbing, cyanosis, or edema. Neurologic: Nonfocal. Skin: Catheterization site is clean, dry, intact. No hematoma. Sensation intact to light touch in lower extremities. Total time spent in discharging the patient was 45 minutes. /KAIA Voice ID: [id number] Report ID: [id number]
== END 2018-11-27 12:05 | disposition home or self-care (01) | DRG 247 ==
LOC: ER 09:16 → ERHOLD 10:38 → INTOOBSV 10:38 → OBSVTOIN 10:38 → 4TH 11:56 → OBSVTOIN 11-26 17:26
PROVIDERS: ADMIT Family Medicine; ATTEND Family Medicine
PROC: 4A023N7 Measurement of Cardiac Sampling and Pressure, Left Heart, Percutaneous Approach (ICD-10-PCS; principal; 2018-11-26)
PROC: 027034Z Dilation of Coronary Artery, One Artery with Drug-eluting Intraluminal Device, Percutaneous Approach (ICD-10-PCS; 2018-11-26)
PROC: B20 Imaging, Heart, Plain Radiography (ICD-10-PCS; 2018-11-26)
DX: I24.9 Acute ischemic heart disease, unspecified (principal); E11.65 Type 2 diabetes mellitus with hyperglycemia; I25.10 Atherosclerotic heart disease of native coronary artery without angina pectoris; I10 Essential (primary) hypertension; D63.8 Anemia in other chronic diseases classified elsewhere; F10.10 Alcohol abuse, uncomplicated; Z95.5 Presence of coronary angioplasty implant and graft; I25.2 Old myocardial infarction
CPT/HCPCS: 36415; 71045; 78452; 80048; 80061; 80076; 81003; 82607; 82728; 82746; 82962; 83540; 83735; 83880; 84466; 84484; 85025; 85347; 85610; 92928; 93005; 93017; 93306; 93455; 96372; 96374; 96375; 99285; A9500; C1725; C1760; C1893; G0378; J0583; J1650; J2250; J2405; J2785; J3010; J7030

== ENCOUNTER 2019-07-16 08:42 | Emergency (ER) | payer SELFPAY ==
--- OUTSIDE RECORDS SUMMARY | 2019-07-16 09:38 | XMS REPORT | Continuity of Care Document ---
:1975 Author Organization [facility] t Address [address] [place] [address] Care Team Providers Name Role Phone Unavailable Unavailable Unavailable Problems This patient has no known problems. Allergies, Adverse Reactions, Alerts This patient has no known allergies or adverse reactions. Medications This patient has no known medications. Procedures This patient has no known procedures. Encounters Start End Encounter Admission Attending Care Care Encounter Source Date/Time Date/Time Type Type Clinicians Facility Department ID 2018-10-21 2018-10-21 Emergency E [id number] [facility] 10:50:00 10:50:00 2018-10-15 2018-10-15 Emergency E [id number] [facility] 17:05:00 17:05:00 Results This patient has no known results.
--- NOTE | 2019-07-16 09:51 | RAD REPORT ---
EXAM DESCRIPTION: RAD - Shoulder Right 2 View - 07/16/2019 9:25 am CLINICAL HISTORY: Right shoulder pain FINDINGS: No fracture or dislocation is seen. Mild to moderate narrowing of the AC joint
--- NOTE | 2019-07-16 10:05 | EDPHYS ---
Physician Documentation [facility] Name: Axel Contreras Age: 44 yrs Sex: Male : 1975 Arrival Date: 07/16/2019 Time: 08:44 Bed 14 Private MD: ED Physician Noam Kirk HPI: 07/15 09:17 This 44 yrs old Male presents to ER via Ambulatory with complaints of Shoulder jmm Pain, Shoulder Injury. 09:17 The patient or guardian complains of an injury, pain. Onset: The symptoms/episode jmm began/occurred acutely, yesterday. Modifying factors: the symptoms are alleviated by nothing. The symptoms are aggravated by movement. Associated signs and symptoms: Pertinent negatives: abdominal pain, chest pain. This is a 44 year old male with a history of hlp that presents to the ED with complaints of right shoulder pain beginning after using his right arm to catch hit weight while working in an attic. Patient states feeling a pop. . Historical: - Allergies: 09:05 No Known Allergies; jl7 - Home Meds: 09:05 atorvastatin Oral [Active]; Metformin Oral [Active]; jl7 09:07 aspirin 81 mg oral TbEC [Active]; Metoprolol Tartrate Oral [Active]; jl7 - PMHx: 09:07 Hyperlipidemia; 7 - PSHx: 09:07 CABG; jl7 - Immunization history:: Adult Immunizations up to date. - Social history:: Smoking status: Patient denies any tobacco usage or history of. ROS: 09:17 Constitutional: Negative for fever, chills, and weight loss, Cardiovascular: Negative jmm for chest pain, palpitations, and edema, Respiratory: Negative for shortness of breath, cough, wheezing, and pleuritic chest pain. 09:17 MS/extremity: Positive for pain. 09:17 All other systems are negative. Exam: 09:17 Constitutional: This is a well developed, well nourished patient who is awake, alert, jmm and in no acute distress. Head/Face: atraumatic. Eyes: EOMI, no conjunctival erythema appreciated ENT: Moist Mucus Membranes Neck: Trachea midline, Supple Chest/axilla: Normal chest wall appearance and motion. Cardiovascular: Regular rate and rhythm. No edema appreciated Respiratory: Normal respirations, no respiratory distress appreciated Abdomen/GI: Non distended, soft Back: Normal ROM Skin: General appearance color normal 09:17 Musculoskeletal/extremity: right ant shoulder pain on palpation, compartments are soft, full oil sprayer strength, full radial pulse, NVI. 09:17 Skin: Appearance: Color: normal in color. 09:17 Neuro: Orientation: is normal, Mentation: is normal, Memory: is normal. 09:17 Psych: Behavior/mood is pleasant, cooperative. 10:13 Musculoskeletal/extremity: bulge noted to the biceps of the right arm. [facility] Vital Signs: 09:01 BP 124 / 78; Pulse 75; Resp 17; Temp 97.2; Pulse Ox 97% ; Weight 83.91 kg; Height 5 ft. jl7 9 in. (175.26 cm); Pain 6; 09:01 Body Mass Index 27.32 (83.91 kg, 175.26 cm) jl7 MDM: 09:00 Patient medically screened. [facility] 10:03 Data reviewed: vital signs, nurses notes. Counseling: I had a detailed discussion with [facility] the patient and/or guardian regarding: the historical points, exam findings, and any diagnostic results supporting the discharge/admit diagnosis, radiology results, the need for outpatient follow up, to return to the emergency department if symptoms worsen or persist or if there are any questions or concerns that arise at home. ED course: xray negative. advised to follow up with ortho for further evaluation. injury may be due to a soft tissue injury. . 07/15 09:00 Order name: Shoulder Right (2 View) XRAY; Complete Time: 10:02 [facility] Administered Medications: No medications were administered Disposition: 11:38 Co-signature as Attending Physician, Noam Kirk MD I agree with the assessment and kdr plan of care. Disposition: 07/16/19 10:04 Discharged to Home. Impression: Other sprain of right shoulder joint, Injury of muscle, fascia and tendon of other parts of biceps. - Condition is Stable. - Discharge Instructions: Shoulder Pain. - Prescriptions for Medrol (Shaun) 4 mg Oral Tablets, Dose Pack - take 1 tablet by ORAL route as directed - follow package instructions; 1 packet. orphenadrine citrate 100 mg Oral Tablet Sustained Release - take 1 tablet by ORAL route 2 times per day As needed; 20 tablet. - Medication Reconciliation Form, Thank You Letter, Antibiotic Education, Prescription Opioid Use, Work release form form. - Follow up: Private Physician; When: 2 - 3 days; Reason: Recheck today's complaints, Continuance of care, Re-evaluation by your physician. Follow up: Jono Kruse MD; When: 2 - 3 days; Reason: Recheck today's complaints, Continuance of care, Re-evaluation by your physician. Signatures: Dispatcher [employer] EDMS Noam Kirk MD MD kdr Mickail, Joel, PA PA [facility] Belinda Garcia RN RN jl7 Corrections: (The following items were deleted from the chart) 10:16 10:04 07/16/2019 10:04 Discharged to Home. Impression: Other sprain of right shoulder jmm joint. Condition is Stable. Forms are Medication Reconciliation Form, Thank You Letter, Antibiotic Education, Prescription Opioid Use. Follow up: Private Physician; When: 2 - 3 days; Reason: Recheck today's complaints, Continuance of care, Re-evaluation by your physician. Follow up: Dr. Jono Kruse; When: 2 - 3 days; Reason: Recheck today's complaints, Continuance of care, Re-evaluation by your physician. [facility] 10:34 10:16 07/16/2019 10:04 Discharged to Home. Impression: Other sprain of right shoulder jl7 joint; Injury of muscle, fascia and tendon of other parts of biceps. Condition is Stable. Discharge Instructions: Shoulder Pain. Prescriptions for Medrol (Shaun) 4 mg Oral Tablets, Dose Pack - take 1 tablet by ORAL route as directed - follow package instructions; 1 packet, orphenadrine citrate 100 mg Oral Tablet Sustained Release - take 1 tablet by ORAL route 2 times per day As needed; 20 tablet. and Forms are Medication Reconciliation Form, Thank You Letter, Antibiotic Education, Prescription Opioid Use. Follow up: Private Physician; When: 2 - 3 days; Reason: Recheck today's complaints, Continuance of care, Re-evaluation by your physician. Follow up: Dr. Jono Kruse; When: 2 - 3 days; Reason: Recheck today's complaints, Continuance of care, Re-evaluation by your physician. [facility]
--- NOTE | 2019-07-16 10:05 | ER ---
Nurse's Notes [facility] Name: Axel Contreras Age: 44 yrs Sex: Male : 1975 Arrival Date: 07/16/2019 Time: 08:44 Bed 14 Private MD: Diagnosis: Other sprain of right shoulder joint;Injury of muscle, fascia and tendon of other parts of biceps Presentation: 07/15 09:01 Chief complaint: Patient states: C/o right shoulder pain after catching himself from jl7 falling last night. Woke this morning with tingling in the right fingers and states "It feels like fluid or something here" pointing to right bicep. Coronavirus screen: Proceed with normal triage. Ebola Screen: No symptoms or risks identified at this time. Initial Sepsis Screen: Does the patient meet any 2 criteria? No. Patient's initial sepsis screen is negative. Does the patient have a suspected source of infection? No. Patient's initial sepsis screen is negative. Risk Assessment: Do you want to hurt yourself or someone else? Patient reports no desire to harm self or others. Onset of symptoms was July 15, 2019. Care prior to arrival: None. Transition of care: patient was not received from another setting of care. 09:01 Method Of Arrival: [facility] 09:01 Acuity: GEOVANNA 3 jl7 Triage Assessment: 09:07 General: Appears in no apparent distress. uncomfortable, Behavior is calm, cooperative, jl7 appropriate for age. Pain: Complains of pain in anterior aspect of right shoulder and right bicep Pain currently is 6 out of 10 on a pain scale. Pain began 1 day ago. Is continuous. Neuro: Level of Consciousness is awake, alert, obeys commands, Oriented to person, place, time, situation. Cardiovascular: Patient's skin is warm and dry. Respiratory: Airway is patent Respiratory effort is even, unlabored, Respiratory pattern is regular, symmetrical. Derm: Skin is pink, warm \\T\\ dry. Musculoskeletal: Range of motion: limited in right shoulder Swelling present in right bicep. Injury Description: right shoulder. Historical: - Allergies: 09:05 No Known Allergies; jl7 - Home Meds: 09:05 atorvastatin Oral [Active]; Metformin Oral [Active]; jl7 09:07 aspirin 81 mg oral TbEC [Active]; Metoprolol Tartrate Oral [Active]; jl7 - PMHx: 09:07 Hyperlipidemia; jl7 - PSHx: 09:07 CABG; jl7 - Immunization history:: Adult Immunizations up to date. - Social history:: Smoking status: Patient denies any tobacco usage or history of. Screenin:05 Abuse screen: Denies threats or abuse. Denies injuries from another. Nutritional jl7 screening: No deficits noted. Tuberculosis screening: No symptoms or risk factors identified. Fall Risk None identified. Assessment: 09:05 General: see triage assessment. jl7 09:10 Reassessment: x-ray at bedside. jl7 10:00 Reassessment: Patient appears in no apparent distress at this time. No changes from jl7 previously documented assessment. Patient and/or family updated on plan of care and expected duration. Pain level reassessed. Patient is alert, oriented x 3, equal unlabored respirations, skin warm/dry/pink. Vital Signs: 09:01 BP 124 / 78; Pulse 75; Resp 17; Temp 97.2; Pulse Ox 97% ; Weight 83.91 kg; Height 5 ft. jl7 9 in. (175.26 cm); Pain 6/10; 09:01 Body Mass Index 27.32 (83.91 kg, 175.26 cm) jl7 ED Course: 08:44 Patient arrived in ED. ag5 08:49 Sandeep Moreno PA is PHCP. jmm 08:49 Noam Kirk MD is Attending Physician. jmm 08:50 Belinda Garcia, NANCY is Primary Nurse. jl7 09:04 Triage completed. jl7 09:05 Patient has correct armband on for positive identification. Placed in gown. Bed in low jl7 position. Call light in reach. Side rails up X 1. Pulse ox on. NIBP on. 09:07 Arm band placed on right wrist. jl7 09:25 Shoulder Right (2 View) XRAY In Process Unspecified. EDMS 10:04 Jono Kruse MD is Referral Physician. [facility] 10:34 No provider procedures requiring assistance completed. Patient did not have IV access jl7 during this emergency room visit. Administered Medications: No medications were administered Outcome: 10:04 Discharge ordered by . [facility] 10:34 Discharged to home ambulatory. jl7 10:34 Condition: stable 10:34 Discharge instructions given to patient, Instructed on discharge instructions, follow up and referral plans. medication usage, Demonstrated understanding of instructions, follow-up care, medications, Prescriptions given X 2. 10:34 Patient left the ED. jl7 Signatures: Dispatcher [employer] EDSandeep Larson PA PA jmm Leal, Jahala, RN RN jl7 Franklyn Turcios ag5 Corrections: (The following items were deleted from the chart) 09:10 09:05 General: see triage assessment. 7 jl7 09:10 09:05 Reassessment: x-ray at bedside jl7 jl7 09:10 09:10 General: see triage assessment. 7 jl7
[2019-07-16 10:40] VITALS: BP 124/78; TEMP 97.2; O2SAT 97
== END 2019-07-16 10:34 | disposition home or self-care (01) ==
LOC: ER 08:42
DX: S43.401A Unspecified sprain of right shoulder joint, initial encounter (principal); S46.201A Unspecified injury of muscle, fascia and tendon of other parts of biceps, right arm, initial encounter; W18.30XA Fall on same level, unspecified, initial encounter; Y93.89 Activity, other specified; Y92.008 Other place in unspecified non-institutional (private) residence as the place of occurrence of the external cause
CPT/HCPCS: 99283

== ENCOUNTER 2020-06-09 10:26 | Emergency (ER) | payer SELFPAY ==
--- OUTSIDE RECORDS SUMMARY | 2020-06-09 10:28 | XMS REPORT | Continuity of Care Document ---
:1975 Author Organization [facility] t Address [address] [place] [address] Care Team Providers Name Role Phone Lab, Fam Pob I Attending Clinician Unavailable Doctor Unassigned, Name Attending Clinician Unavailable Problems This patient has no known problems. Allergies, Adverse Reactions, Alerts This patient has no known allergies or adverse reactions. Medications This patient has no known medications. Procedures This patient has no known procedures. Encounters Start End Encounter Admission Attending Care Care Encounter Source Date/Time Date/Time Type Type Clinicians Facility Department ID 2019-08-21 2019-08-21 Laboratory Lab, [facility] [id number] 13:53:34 14:13:34 Only Fam Pob I Health [id number] [facility] [id number] [place] [id number] [address] 2019-08-21 2019-08-21 Letter Doctor ZARIA [id number] 00:00:00 00:00:00 (Out) UnassignedUMESH [id number] [place] [facility] [id number] 2018-10-21 2018-10-21 Emergency E [id number] [facility] 10:50:00 10:50:00 2018-10-15 2018-10-15 Emergency E [facility] [id number] [facility] 17:05:00 17:05:00 Results This patient has no known results.
[2020-06-09 12:46] LABS: Absolute Lymphocytes (CBC) 1.6 K/uL (0.7-4.9); Basophils % 2.1 % (0-1.3); Hematocrit 39.4 % (39.6-49.0); Lymphocytes % 35.4 % (15.3-44.8); MPV 8.1 fL (7.6-11.3); RBC Red Blood Cell Count 4.51 M/uL (4.33-5.43)
[2020-06-09] MEDS ORDERED: DIPHENHYDRAMINE 50 MG/ML VIAL ONE (12:54)
[2020-06-09] MEDS ORDERED: FUROSEMIDE 20 MG/ 2ML VIAL ONE (12:54)
[2020-06-09] MEDS ORDERED: METHYLPREDNISOLONE 125 MG INJ ONE (12:54)
[2020-06-09 12:55] LABS: BUN Blood Urea Nitrogen 20 mg/dL (7-18); Bicarbonate 23 mmol/L (21-32); Glucose Level 157 mg/dL (74-106); Potassium 3.8 mmol/L (3.5-5.1); Sodium Level 142 mmol/L (136-145)
--- NOTE | 2020-06-09 14:13 | ER ---
Nurse's Notes [facility] Name: Axel Contreras Age: 45 yrs Sex: Male : 1975 Arrival Date: 06/09/2020 Time: : Bed 18 Private MD: Diagnosis: Bilateral Hand Swelling,;Diabetic Neuropathy Presentation: 06/09 10:33 Chief complaint: Patient states: since i was working on my truck and since tw2 then i have been feeling tingling in both my hands and feet, i am a diabetic, i have bee taking the pills for diabetes but not my blood pressure pills or cholesterol, because i dont have them, i am having tingling in my feet and legs and swelling in my hands, this morning both my hands were so swollen that they wanted to pop, sometimes i have no feeling in the finger tips, i had a stint put in last year in my groin, i dont hurt from the groin area but they told me they get blown out so i dont know if the stint is causing it. Coronavirus screen: At this time, the client does not indicate any symptoms associated with coronavirus-19. Ebola Screen: Patient denies travel to an Ebola-affected area in the 21 days before illness onset. Initial Sepsis Screen: Does the patient meet any 2 criteria? No. Patient's initial sepsis screen is negative. Does the patient have a suspected source of infection? No. Patient's initial sepsis screen is negative. Risk Assessment: Do you want to hurt yourself or someone else? Patient reports no desire to harm self or others. Onset of symptoms was June 09, 2020. 10:33 Method Of Arrival: Ambulatory tw2 10:33 Acuity: GEOVANNA 3 tw2 Triage Assessment: 10:39 General: Appears in no apparent distress. uncomfortable, Behavior is calm, cooperative, tw2 appropriate for age. Pain: Complains of pain in right hand, left hand, right foot and left foot. Musculoskeletal: Swelling present in dorsal aspect of distal phalanx of right thumb, dorsal aspect of proximal phalanx of right thumb, dorsal aspect of middle phalanx of right index finger, dorsal aspect of proximal phalanx of right index finger, dorsal aspect of middle phalanx of right middle finger and dorsal aspect of proximal phalanx of right middle finger. Historical: - Allergies: 10:39 No Known Allergies; tw2 - Home Meds: 10:39 metformin 500 mg oral tab 1 tab 2 times per day [Active]; Metoprolol Tartrate Oral tw2 (Last Dose: 02/12/2020 08:00) [Active]; atorvastatin Oral (Last Dose: 03/01/2020) [Active]; aspirin 81 mg Oral TbEC [Active]; - PMHx: 10:39 Hyperlipidemia; Hypertension; Diabetes - NIDDM; tw2 - PSHx: 10:39 CABG; tw2 - Immunization history:: Adult Immunizations. - Social history:: Smoking status: Patient denies any tobacco usage or history of. Patient uses alcohol, "3 beers on a month". street drugs, marijuana, "a joint every month or two". Screenin:00 Abuse screen: Denies threats or abuse. Nutritional screening: No deficits noted. em Tuberculosis screening: No symptoms or risk factors identified. Fall Risk None identified. Assessment: 11:00 General: Appears in no apparent distress. comfortable, Behavior is calm, cooperative, em appropriate for age, Denies fever. Pain: Complains of pain in left hand and right hand Pain currently is 6 out of 10 on a pain scale. Pain began 1 day ago. Neuro: Level of Consciousness is awake, alert, obeys commands, Oriented to person, place, time, situation, Reports paresthesias in left foot and right foot and left hand and right hand. Cardiovascular: Denies chest pain, lightheadedness, shortness of breath. Respiratory: Airway is patent Respiratory effort is even, unlabored, Respiratory pattern is regular, symmetrical, Denies shortness of breath. Derm: Skin is intact, is healthy with good turgor, Skin is pink, warm \\T\\ dry. Musculoskeletal: Range of motion: limited in dorsal aspect of proximal phalanx of right middle finger and dorsal aspect of middle phalanx of right middle finger and dorsal aspect of proximal phalanx of right index finger and dorsal aspect of middle phalanx of right index finger and dorsal aspect of proximal phalanx of right thumb and dorsal aspect of distal phalanx of right thumb Swelling present in right foot. 11:33 Reassessment: Dr. Kirk at bedside. em 12:30 Reassessment: Patient appears in no apparent distress at this time. Patient and/or em family updated on plan of care and expected duration. Pain level reassessed. Patient is alert, oriented x 3, equal unlabored respirations, skin warm/dry/pink. 14:06 Reassessment: Patient appears in no apparent distress at this time. Patient and/or em family updated on plan of care and expected duration. Pain level reassessed. Patient is alert, oriented x 3, equal unlabored respirations, skin warm/dry/pink. Vital Signs: 10:33 BP 142 / 105; Pulse 81; Resp 17; Temp 97.8(TE); Pulse Ox 99% on R/A; Weight 72.57 kg tw2 (R); Height 6 ft. 2 in. (187.96 cm); Pain 6/10; 12:24 BP 139 / 89; Pulse 60; Resp 18; Pulse Ox 100% ; em 14:05 BP 143 / 89; Pulse 72; Resp 18; Pulse Ox 97% on R/A; em 10:33 Body Mass Index 20.54 (72.57 kg, 187.96 cm) tw2 ED Course: 10:29 Patient arrived in ED. ds1 10:37 Triage completed. tw2 10:40 Arm band placed on. tw2 10:41 Noam Kirk MD is Attending Physician. kdr 10:52 Italo Prajapati RN is Primary Nurse. em 11:00 Patient has correct armband on for positive identification. Adult w/ patient. em 13:40 Initial lab(s) drawn, by me, sent to lab. Inserted saline lock: 20 gauge in right em antecubital area, using aseptic technique. Blood collected. 14:38 No provider procedures requiring assistance completed. IV discontinued, intact, em bleeding controlled, No redness/swelling at site. Pressure dressing applied. Administered Medications: 12:38 Drug: SOLU-Medrol (methylPrednisoLONE) 60 mg Route: IVP; Site: right antecubital; em 14:06 Follow up: Response: No adverse reaction em 12:40 Drug: Lasix (furosemide) 20 mg Route: IVP; Site: right antecubital; em 14:06 Follow up: Response: No adverse reaction em 12:42 Drug: Benadryl (diphenhydrAMINE) 25 mg Route: PO; em 14:06 Follow up: Response: No adverse reaction em Outcome: 14:13 Discharge ordered by . edu 14:40 Patient left the ED. em Signatures: Noam Kirk MD MD kdr Munoz, Edgar, RN RN em Shannon Osorio ds1 Hilda Saunders RN RN tw2
--- NOTE | 2020-06-09 14:13 | EDPHYS ---
Physician Documentation [facility] Name: Axel Contreras Age: 45 yrs Sex: Male : 1975 Arrival Date: 06/09/2020 Time: 10: Bed 18 Private MD: ED Physician Noam Kirk HPI: 06/09 14:25 This 45 yrs old Male presents to ER via Ambulatory with complaints of Hand kdr Swelling, Foot Swelling. 14:26 The patient c/o bilateral hand swelling and bilateral hand and foot tingling and kdr numbness. He is an uncontrolled diabetic. Onset: The symptoms/episode began/occurred THE numbness has been ongoing for some time but the hand swelling has been since he was using his hands in wet concrete about 4 days ago. Severity of symptoms: At their worst the symptoms were mild moderate just prior to arrival, in the emergency department the symptoms are unchanged. The patient has not experienced similar symptoms in the past. The patient has not recently seen a physician. Historical: - Allergies: 10:39 No Known Allergies; tw2 - Home Meds: 10:39 metformin 500 mg oral tab 1 tab 2 times per day [Active]; Metoprolol Tartrate Oral tw2 (Last Dose: 02/12/2020 08:00) [Active]; atorvastatin Oral (Last Dose: 03/01/2020) [Active]; aspirin 81 mg Oral TbEC [Active]; - PMHx: 10:39 Hyperlipidemia; Hypertension; Diabetes - NIDDM; tw2 - PSHx: 10:39 CABG; tw2 - Immunization history:: Adult Immunizations. - Social history:: Smoking status: Patient denies any tobacco usage or history of. Patient uses alcohol, "3 beers on a month". street drugs, marijuana, "a joint every month or two". ROS: 14:26 Constitutional: Negative for fever, chills, and weight loss, Eyes: Negative for injury, kdr pain, redness, and discharge, ENT: Negative for injury, pain, and discharge, Neck: Negative for injury, pain, and swelling, Cardiovascular: Negative for chest pain, palpitations, and edema, Respiratory: Negative for shortness of breath, cough, wheezing, and pleuritic chest pain, Abdomen/GI: Negative for abdominal pain, nausea, vomiting, diarrhea, and constipation, Back: Negative for injury and pain, : Negative for injury, bleeding, discharge, and swelling, Skin: Negative for injury, rash, and discoloration, Neuro: Negative for headache, weakness, numbness, tingling, and seizure activity. Psych: Negative for depression, anxiety, suicide ideation, homicidal ideation, and hallucinations, Allergy/Immunology: Negative for hives, rash, and allergies, Endocrine: Negative for neck swelling, polydipsia, polyuria, polyphagia, and marked weight changes, Hematologic/Lymphatic: Negative for swollen nodes, abnormal bleeding, and unusual bruising. 14:26 MS/extremity: Positive for swelling, of the right hand and left hand. Exam: 14:26 Constitutional: This is a well developed, well nourished patient who is awake, alert, kdr and in no acute distress. Head/Face: Normocephalic, atraumatic. Eyes: Pupils equal round and reactive to light, extra-ocular motions intact. Lids and lashes normal. Conjunctiva and sclera are non-icteric and not injected. Cornea within normal limits. Periorbital areas with no swelling, redness, or edema. Neck: Trachea midline, no thyromegaly or masses palpated, and no cervical lymphadenopathy. Supple, full range of motion without nuchal rigidity, or vertebral point tenderness. No Meningismus. Chest/axilla: Normal chest wall appearance and motion. Nontender with no deformity. No lesions are appreciated. Cardiovascular: Regular rate and rhythm with a normal S1 and S2. No gallops, murmurs, or rubs. Normal PMI, no JVD. No pulse deficits. Respiratory: Lungs have equal breath sounds bilaterally, clear to auscultation and percussion. No rales, rhonchi or wheezes noted. No increased work of breathing, no retractions or nasal flaring. Abdomen/GI: Soft, non-tender, with normal bowel sounds. No distension or tympany. No guarding or rebound. No evidence of tenderness throughout. Back: No spinal tenderness. No costovertebral tenderness. Full range of motion. Skin: Warm, dry with normal turgor. Normal color with no rashes, no lesions, and no evidence of cellulitis. Neuro: Awake and alert, GCS 15, oriented to person, place, time, and situation. Cranial nerves II-XII grossly intact. Motor strength 5/5 in all extremities. Sensory grossly intact. Cerebellar exam normal. Normal gait. Psych: Awake, alert, with orientation to person, place and time. Behavior, mood, and affect are within normal limits. 14:26 Musculoskeletal/extremity: Generalized swelling of the rowley aspect of both hands. Vital Signs: 10:33 BP 142 / 105; Pulse 81; Resp 17; Temp 97.8(TE); Pulse Ox 99% on R/A; Weight 72.57 kg tw2 (R); Height 6 ft. 2 in. (187.96 cm); Pain 6/10; 12:24 BP 139 / 89; Pulse 60; Resp 18; Pulse Ox 100% ; em 14:05 BP 143 / 89; Pulse 72; Resp 18; Pulse Ox 97% on R/A; em 10:33 Body Mass Index 20.54 (72.57 kg, 187.96 cm) tw2 MDM: 14:13 Patient medically screened. kdr 14:37 Data reviewed: vital signs, nurses notes, lab test result(s). Response to treatment: kdr the patient's symptoms have mildly improved after treatment, patient is well hydrated. Special discussion: I discussed with the patient/guardian in detail that at this point there is no indication for admission to the hospital. It is understood, however, that if the symptoms persist or worsen the patient needs to return immediately for re-evaluation. 06/09 11:47 Order name: CBC with Diff; Complete Time: 14:10 kdr 06/09 11:47 Order name: Chem 7; Complete Time: 14:10 kdr Administered Medications: 12:38 Drug: SOLU-Medrol (methylPrednisoLONE) 60 mg Route: IVP; Site: right antecubital; em 14:06 Follow up: Response: No adverse reaction em 12:40 Drug: Lasix (furosemide) 20 mg Route: IVP; Site: right antecubital; em 14:06 Follow up: Response: No adverse reaction em 12:42 Drug: Benadryl (diphenhydrAMINE) 25 mg Route: PO; em 14:06 Follow up: Response: No adverse reaction em Disposition: 06/09/20 14:13 Discharged to Home. Impression: Bilateral Hand Swelling,, Diabetic Neuropathy. - Condition is Stable. - Discharge Instructions: Diabetic Neuropathy, Hand Dermatitis, [id number]. - Prescriptions for Prednisone 20 mg Oral Tablet - take 1 tablet by ORAL route once daily for 5 days; 5 tablet. - Medication Reconciliation Form, Thank You Letter form. - Follow up: Private Physician; When: 2 - 3 days; Reason: If symptoms return, Further diagnostic work-up, Recheck today's complaints, Continuance of care, Re-evaluation by your physician. - Problem is new. - Symptoms have improved. Signatures: Dispatcher [employer] EDNoam Hanks MD MD kdr Italo Prajapati RN RN em Hilda Saunders RN RN tw2 Corrections: (The following items were deleted from the chart) 14:40 14:13 06/09/2020 14:13 Discharged to Home. Impression: Bilateral Hand Swelling,; em Diabetic Neuropathy. Condition is Stable. Forms are Medication Reconciliation Form, Thank You Letter, Antibiotic Education, Prescription Opioid Use. Follow up: Private Physician; When: 2 - 3 days; Reason: If symptoms return, Further diagnostic work-up, Recheck today's complaints, Continuance of care, Re-evaluation by your physician. Problem is new. Symptoms have improved. kdr
[2020-06-09 14:45] VITALS: TEMP 97.8
[2020-06-09 14:47] VITALS: BP 143/89; O2SAT 97
== END 2020-06-09 14:40 | disposition home or self-care (01) ==
LOC: ER 10:26
DX: E11.40 Type 2 diabetes mellitus with diabetic neuropathy, unspecified (principal); I10 Essential (primary) hypertension; E78.5 Hyperlipidemia, unspecified; Z79.82 Long term (current) use of aspirin; Z95.1 Presence of aortocoronary bypass graft
CPT/HCPCS: 36415; 80048; 85025; 96374; 96375; 99283; J1200; J1940; J2930

== ENCOUNTER 2020-09-28 07:21 | Emergency (ER) | payer BC, SELFPAY ==
--- OUTSIDE RECORDS SUMMARY | 2020-09-28 07:23 | XMS REPORT | Continuity of Care Document ---
:1975 Author Organization [facility] t Address [address] [place] [address] Care Team Providers Name Role Phone Lab, [...] Facility Department ID 2019-08-21 2019-08-21 Laboratory Lab, Adc [facility] [id number] 13:53:34 14:13:34 Only Fam [facility] [id number] [place] [id number] [facility] [phone] nal [address] 2019-08-21 2019-08-21 Letter Doctor ZARIA [id number] 00:00:00 00:00:00 (Out) Unassigned, UMESH [id number] [place] [facility] [id number] [id number] 2018-10-21 2018-10-21 Emergency E [facility] [id number] [facility] 10:50:00 10:50:00 2018-10-15 2018-10-15 Emergency E [facility] [id number] [facility] 17:05:00 17:05:00 Results This patient has no known results.
--- NOTE | 2020-09-28 08:54 | RAD REPORT ---
EXAM DESCRIPTION: RAD - Chest Pa And Lat (2 Views) - 09/28/2020 8:48 am CLINICAL HISTORY: possible covid;Cough COMPARISON: Chest Single View dated 11/24/2018; Chest Single View dated 04/24/2018; Chest Single View dated 01/13/2018 FINDINGS: No evidence of edema or pneumonia. The heart size is within normal limits.No acute osseous abnormality. No significant pleural effusions or pneumothorax. Sternotomy. IMPRESSION: No acute cardiopulmonary disease.
--- NOTE | 2020-09-28 11:26 | ER ---
Nurse's Notes [facility] Name: Axel Contreras Age: 45 yrs Sex: Male : 1975 Arrival Date: 09/28/2020 Time: 07:26 Bed Waiting Private MD: Diagnosis: SARS-associated coronavirus as the cause of diseases classified elsewhere Presentation: 09/28 08:40 Chief complaint: Patient states: cough, body aches, diarrhea and congestion that last ss night. Coronavirus screen: Client denies travel out of the [place] in the last 14 days. Ebola Screen: Patient denies exposure to infectious person. Patient denies travel to an Ebola-affected area in the 21 days before illness onset. Resp Distress? No respiratory distress is noted at this time. Initial Sepsis Screen: Does the patient meet any 2 criteria? No. Patient's initial sepsis screen is negative. Does the patient have a suspected source of infection? No. Patient's initial sepsis screen is negative. Risk Assessment: Do you want to hurt yourself or someone else? Patient reports no desire to harm self or others. Onset of symptoms was September 27, 2020. 08:40 Method Of Arrival: Ambulatory ss 08:40 Acuity: EGOVANNA 3 ss Historical: - Allergies: 08:42 No Known Allergies; ss - PMHx: 08:42 Diabetes - NIDDM; Hyperlipidemia; Hypertension; ss - Immunization history:: Adult Immunizations up to date, Client reports receiving the 1st dose of the Covid vaccine. - Social history:: Smoking status: Patient denies any tobacco usage or history of. Patient uses street drugs, marijuana. - Family history:: not pertinent. - Hospitalizations: : No recent hospitalization is reported. Assessment: 08:42 Reassessment: Pt to XRAY at this time. Vital Signs: 08:40 BP 140 / 97; Pulse 92; Resp 16; Temp 98.4(TE); Pulse Ox 97% on R/A; Weight 74.84 kg; ss Height 5 ft. 9 in. (175.26 cm); Pain 6/10; 08:40 Body Mass Index 24.37 (74.84 kg, 175.26 cm) ED Course: 07:26 Patient arrived in ED. mr 07:28 Madhav Salguero PA is PHCP. jr8 07:28 Esa Lopez MD is Attending Physician. jr8 08:42 Triage completed. ss 08:42 Arm band placed on right wrist. ss 08:48 XRAY Chest Pa And Lat (2 Views) In Process Unspecified. EDMS 11:40 No provider procedures requiring assistance completed. Patient did not have IV access ss during this emergency room visit. Administered Medications: No medications were administered Outcome: 11:26 Discharge ordered by . rn 11:40 Discharged to home ambulatory. ss 11:40 Condition: good 11:40 Discharge instructions given to patient, Instructed on discharge instructions, follow up and referral plans. Will call patient back with COVID results. Demonstrated understanding of instructions, follow-up care. 11:41 Patient left the ED. ss Signatures: Dispatcher [employer] EDNM RadfordSara mr Esa Lopez MD MD rn Smirch, Shelby, RN RN Madhav Salguero, SHERINE BASURTO jr8
--- NOTE | 2020-09-28 11:26 | EDPHYS ---
[facility] Name: Axel Contreras Age: 45 yrs Sex: Male : 1975 Arrival Date: 09/28/2020 Time: 07:26 Bed Waiting Private MD: ED Physician Esa Lopez HPI: 09/28 07:51 This 45 yrs old Male presents to ER via Unassigned with complaints of Cough, rn Congestion, Diarrhea. 07:51 The patient or guardian reports cough, described as mild, with productive sputum, flu rn symptoms, low-grade fever, myalgias. Onset: The symptoms/episode began/occurred yesterday. Severity of symptoms: At their worst the symptoms were mild, in the emergency department the symptoms are unchanged. Modifying factors: The symptoms are alleviated by nothing, the symptoms are aggravated by nothing. Associated signs and symptoms: Pertinent positives: diarrhea, fever, cough, congestion. The patient has not experienced similar symptoms in the past. The patient has been recently seen at an urgent care. Pt reports cough/congestion/fatigue/muscle aches/diarrhea. diagnosed with COVID this last week. Pt reports his symptoms began last night. States tested days ago before symptomatic and was negative. . Historical: - Allergies: 08:42 No Known Allergies; ss - PMHx: 08:42 Diabetes - NIDDM; Hyperlipidemia; Hypertension; ss - Immunization history:: Adult Immunizations up to date, Client reports receiving the 1st dose of the Covid vaccine. - Social history:: Smoking status: Patient denies any tobacco usage or history of. Patient uses street drugs, marijuana. - Family history:: not pertinent. - Hospitalizations: : No recent hospitalization is reported. ROS: 07:51 Constitutional: + subjective fever and chills Eyes: Negative for injury, pain ENT: + rn congestion and sore throat Neck: Negative for injury, pain, and swelling, Cardiovascular: Negative for chest pain, palpitations, and edema, Respiratory: + cough, neg for sob Abdomen/GI: Negative for abdominal pain, nausea, vomiting, and constipation, Back: Negative for injury and pain, : Negative for injury, bleeding, discharge, and swelling, MS/Extremity: Negative for injury and deformity, Skin: Negative for injury, rash, and discoloration, Neuro: Negative for numbness, tingling, and seizure. Exam: 07:51 Constitutional: This is a well developed, well nourished patient who is awake, alert, rn and in no acute distress. Ambulatory to room without difficulty or distress. Head/Face: Normocephalic, atraumatic. Eyes: Mild scleral injection without drainage ENT: No stridor, dry mucous membranes Neck: Trachea midline, no masses palpated, and no cervical lymphadenopathy. Supple, full range of motion without nuchal rigidity, or vertebral point tenderness. No Meningismus. Cardiovascular: Regular rate and rhythm. No pulse deficits. Respiratory: Speaking full sentences unlabored. no increased work of breathing, no retractions or nasal flaring. Abdomen/GI: Soft, non-tender Skin: Warm, dry, no cyanosis MS/ Extremity: Pulses equal, no cyanosis Neuro: Awake and alert, GCS 15, oriented to person, place, time, and situation. Cranial nerves II-XII grossly intact. Motor strength 5/5 in all extremities. Sensory grossly intact. Cerebellar exam normal. Normal gait. Vital Signs: 08:40 BP 140 / 97; Pulse 92; Resp 16; Temp 98.4(TE); Pulse Ox 97% on R/A; Weight 74.84 kg; ss Height 5 ft. 9 in. (175.26 cm); Pain 6/10; 08:40 Body Mass Index 24.37 (74.84 kg, 175.26 cm) ss MDM: 07:30 Patient medically screened. jr8 11:08 ED course: COVID swab apparently still not sent to lab, being walked over now.. rn 11:24 Differential Diagnosis: Bronchitis Upper Respiratory Infection Viral Syndrome rn Pneumonia. Data reviewed: vital signs, nurses notes, radiologic studies, plain films, and as a result, I will. Data interpreted: Pulse oximetry: on room air is 97 %. Interpretation: normal. Test interpretation: by ED physician or midlevel provider: plain radiologic studies, X-ray negative for acute infiltrate or pneumothorax. Counseling: I had a detailed discussion with the patient and/or guardian regarding: the historical points, exam findings, and any diagnostic results supporting the discharge/admit diagnosis, radiology results, the need for outpatient follow up, to return to the emergency department if symptoms worsen or persist or if there are any questions or concerns that arise at home. Special discussion: I discussed with the patient/guardian in detail that at this point there is no indication for admission to the hospital. It is understood, however, that if the symptoms persist or worsen the patient needs to return immediately for re-evaluation. ED course: Discussed with patient will DC home and call with result given time of results will not change anything. Chest x-ray normal without signs of Covid pneumonia and no oxygen requirement.. 09/28 11:25 Order name: Glucose, Ancillary Testing EDMS 09/28 07:38 Order name: XRAY Chest Pa And Lat (2 Views); Complete Time: 09:41 rn 09/28 07:39 Order name: Glucose Level; Complete Time: 11:15 rn Administered Medications: No medications were administered Disposition Summary: 09/28/20 11:26 Discharge Ordered Location: Home rn Problem: new rn Symptoms: are unchanged rn Condition: Stable rn Diagnosis - SARS-associated coronavirus as the cause of diseases classified elsewhere rn Followup: rn - With: Private Physician - When: As needed - Reason: Recheck today's complaints, Re-evaluation by your physician Discharge Instructions: - Discharge Summary Sheet rn - COVID-19 rn - Things to Know about the COVID-19 Pandemic - [facility] rn - 10 Things You Can Do to Manage Your COVID-19 Symptoms at Home - [facility] rn - Viral Illness, Adult rn - Prevent the Spread of COVID-19 if You Are Sick - [facility] rn Forms: - Medication Reconciliation Form rn - Thank You Letter 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 EDNC EDNC
[2020-09-28 11:50] VITALS: BP 140/97; TEMP 98.4; O2SAT 97
== END 2020-09-28 11:41 | disposition home or self-care (01) ==
LOC: ER 07:21
DX: U07.1 COVID-19 (principal); I10 Essential (primary) hypertension
CPT/HCPCS: 82947; 71046; 99283; U0003

== ENCOUNTER 2022-04-04 16:52 | Emergency (ER) | payer BC, OTHER ==
--- OUTSIDE RECORDS SUMMARY | 2022-04-04 16:57 | XMS REPORT | Continuity of Care Document ---
:1975 Author Organization [facility] t Address [address] [place] [address] Care Team Providers Name Role Phone MATTHIAS CHAUDHRY Attending Clinician Unavailable Lab, Adc Fam Pob I Attending Clinician Unavailable SWATI CAMPBELL Attending Clinician Unavailable Doctor Unassigned, [place] Attending Clinician Unavailable BRENDA FLYNN Attending Clinician Unavailable Payers Payer Name Policy Type Policy Number Effective Date Expiration Date S dash ADAMSTNA O [id number] 2022 00:00:00 Problems This patient has no known problems. Allergies, Adverse Reactions, Alerts Allergy Allergy Status Severity Reaction(s) Onset Inactive Treating Comm ents Source Name Type Date Date Clinician NO KNOWN Drug Active [facility] Medications This patient has no known medications. Procedures This patient has no known procedures. Encounters Start End Encounter Admission Attending Care Care Encounter Source Date/Time Date/Time Type Type Clinicians Facility Department ID 2022-03-16 Outpatient [facility] [id number] [place] 11:34:05 [id number] Health 2022-03-14 Outpatient [facility] [id number] [place] 14:34:21 [id number] [facility] 2022-02-20 Outpatient [facility] [id number] [place] 14:07:49 [id number] Health 2022-02-19 Outpatient [facility] [id number] [place] 14:58:10 [id number] Health 2022-03-15 2022-03-15 Outpatient ISIDORO, [facility] CAR [id number] [facility] 10:14:00 23:59:00 MATTHIAS 2019-08-21 2019-08-21 Laboratory Lab, [facility] [id number] 13:53:34 14:13:34 Only Fam Pob I [facility] [id number] [place] [id number] Professio [id number] nal [address] 2019-08-21 2019-08-21 Outpatient Arcelia CAMPBELL [facility] [id number] [facility] 14:00:00 14:00:[address] [facility] 2019-08-21 2019-08-21 Letter Doctor ZARIA [id number] 00:00:00 00:00:00 (Out) Unassigned, [place] [id number] [place] [facility] [id number] 2019-07-23 2019-07-23 Outpatient Arcelia FLYNN [facility] [id number] [facility] 13:30:00 13:30:[address] [facility] 2018-10-21 2018-10-21 Emergency E [facility] [id number] [facility] 10:50:00 10:50:00 2018-10-15 2018-10-15 Emergency E [facility] [id number] [facility] 17:05:00 17:05:00 Results This patient has no known results.
--- NOTE | 2022-04-04 19:31 | RAD REPORT ---
EXAM DESCRIPTION: RAD - Abdomen W Erect - 04/04/2022 7:11 pm CLINICAL HISTORY: CONSTIPATION COMPARISON: Chest Pa And Lat (2 Views) dated 09/28/2020 TECHNIQUE: Single AP views of the abdomen. FINDINGS: Nonobstructive bowel gas pattern. No air-fluid levels, free air, or pneumatosis. Bilateral small pelvic phleboliths. Left os acetabuli. No significant bony abnormality. Hardware related to a prior median sternotomy, lower mediastinal surgical clips on the left, and dist al aspect of a pacer/AICD lead are present. IMPRESSION: No acute findings. Nonobstructive bowel gas pattern.
--- NOTE | 2022-04-04 19:50 | ER ---
Nurse's Notes [facility] Name: Axel Contreras Age: 47 yrs Sex: Male : 1975 Arrival Date: 04/04/2022 Time: 16:56 Bed 9 Private MD: Diagnosis: Constipation Presentation: 04/04 17:14 Chief complaint: Patient states: hopefully its only constipation; i dont feel any pain [facility] in my stomach. Saturday morning i strated feeling constipated because it would hurt when i would go to the bathroom. I cant have a real bowel movement, only nahum. I was at and got a defibrillator in February and had constipation issue with my large intestine. I have streaks of blood when i wipe and it just hurts near my rectum when i try to poop and wipe. Coronavirus screen: Vaccine status:. Ebola Screen: Patient negative for fever greater than or equal to 101.5 degrees Fahrenheit, and additional compatible Ebola Virus Disease symptoms Patient denies exposure to infectious person. Patient denies travel to an Ebola-affected area in the 21 days before illness onset. Initial Sepsis Screen: Does the patient meet any 2 criteria? No. Patient's initial sepsis screen is negative. Does the patient have a suspected source of infection? No. Patient's initial sepsis screen is negative. Risk Assessment: Do you want to hurt yourself or someone else? Patient reports no desire to harm self or others. 17:14 Method Of Arrival: Ambulatory [facility] 17:14 Acuity: GEOVANNA 3 [facility] Triage Assessment: 17:19 General: Appears uncomfortable, slender, Behavior is calm, cooperative, appropriate for [facility] age. Pain: Complains of pain in abdomen. GI: Reports constipation. Historical: - PMHx: 17:18 Diabetes - NIDDM; Hyperlipidemia; Hypertension; [facility] 17:19 Congestive heart failure; [facility] - PSHx: 17:18 CABG 2016; DEFIBRILATOR PLACEMENT 2022; [facility] - Immunization history:: Adult Immunizations up to date. - Social history:: Smoking status: Smoking status: Patient denies any tobacco usage or history of. Patient uses street drugs, marijuana. Vital Signs: 17:14 BP 102 / 77; Pulse 75; Resp 16; Temp 98.4; Pulse Ox 100% ; Weight 81.65 kg; Height 5 [facility] ft. 9 in. (175.26 cm); Pain 5/10; 17:14 Body Mass Index 26.58 (81.65 kg, 175.26 cm) [facility] ED Course: 16:56 Patient arrived in ED. as 17:06 Jack Belle PA is PHCP. cp 17:06 Jack Haywood MD is Attending Physician. cp 17:18 Triage completed. [facility] 17:19 Arm band placed on right wrist. [facility] Administered Medications: 19:57 Drug: Lactulose 30 grams Volume: 45 ml; Route: PO; [facility] Outcome: 19:49 Discharge ordered by . cp 19:57 Discharged to home ambulatory. [facility] 19:57 Condition: good 19:57 Discharge instructions given to patient, family, Instructed on discharge instructions, follow up and referral plans. medication usage, safety practices, Demonstrated understanding of instructions, follow-up care, medications. 19:57 Patient left the ED. [facility] Signatures: Marlyn Mayberry as Jack Belle PA PA cp Sheri Blank, RN RN [facility]
--- NOTE | 2022-04-04 19:50 | EDPHYS ---
Physician Documentation [facility] Name: Axel Contreras Age: 47 yrs Sex: Male : 1975 Arrival Date: 04/04/2022 Time: 16:56 Bed 9 Private MD: ED Physician Jack Haywood HPI: 04/04 18:25 This 47 yrs old Male presents to ER via Ambulatory with complaints of cp Constipation. 18:25 The patient presents with constipation. Onset: The symptoms/episode began/occurred this cp past Saturday. 18:25 The symptoms do not radiate. Associated signs and symptoms: Pertinent negatives: cp anorexia, blood in stools, diarrhea, dysuria, fever, shortness of breath, testicular pain, vomiting. 18:25 Patient denies abdominal pain and reports small, hard bowel movements. cp Historical: - PMHx: 17:18 Diabetes - NIDDM; Hyperlipidemia; Hypertension; [facility] 17:19 Congestive heart failure; [facility] - PSHx: 17:18 CABG 2016; DEFIBRILATOR PLACEMENT 2022; [facility] - Immunization history:: Adult Immunizations up to date. - Social history:: Smoking status: Smoking status: Patient denies any tobacco usage or history of. Patient uses street drugs, marijuana. ROS: 18:30 Constitutional: Negative for body aches, chills, fever, poor PO intake. cp 18:30 Eyes: Negative for injury, pain, redness, and discharge. cp 18:30 Cardiovascular: Negative for chest pain, edema, palpitations. 18:30 Respiratory: Negative for cough, shortness of breath, wheezing. 18:30 Abdomen/GI: Positive for constipation, Negative for abdominal pain, vomiting, diarrhea, black/tarry stool, rectal bleeding. 18:30 Back: Negative for pain at rest, pain with movement. 18:30 Neuro: Negative for altered mental status, dizziness, headache, weakness. 18:30 All other systems are negative. Exam: 18:35 Constitutional: The patient appears in no acute distress, alert, awake, cp non-diaphoretic, non-toxic, well developed, well nourished, uncomfortable. 18:35 Head/Face: Normocephalic, atraumatic. cp 18:35 Eyes: Periorbital structures: appear normal, Conjunctiva: normal, no exudate, no injection, Sclera: no appreciated abnormality, Lids and lashes: appear normal, bilaterally. 18:35 ENT: External ear(s): are unremarkable, Nose: is normal, Mouth: Lips: moist, Oral mucosa: moist, Posterior pharynx: Airway: no evidence of obstruction, patent. 18:35 Chest/axilla: Inspection: normal. 18:35 Cardiovascular: Rate: normal. 18:35 Respiratory: the patient does not display signs of respiratory distress, Respirations: normal, no use of accessory muscles, no retractions, labored breathing, is not present, Breath sounds: are clear throughout, no decreased breath sounds, no stridor, no wheezing. 18:35 Abdomen/GI: Inspection: abdomen appears normal, Bowel sounds: active, all quadrants, Palpation: abdomen is soft and non-tender, in all quadrants. 18:35 Back: pain, is absent, ROM is normal. 18:35 Neuro: Orientation: to person, place \T\ time. Mentation: is normal, Motor: moves all fours, strength is normal, Gait: is steady, at a normal pace, without difficulty. Vital Signs: 17:14 BP 102 / 77; Pulse 75; Resp 16; Temp 98.4; Pulse Ox 100% ; Weight 81.65 kg; Height 5 jh5 ft. 9 in. (175.26 cm); Pain 5/10; 17:14 Body Mass Index 26.58 (81.65 kg, 175.26 cm) jh5 MDM: 17:26 Patient medically screened. [facility] 19:48 Data reviewed: vital signs, nurses notes, radiologic studies, plain films. 19:48 Differential diagnosis: constipation, bowel obstruction, ileus. Consideration of cp Admission/Observation Escalation of care including admission/observation considered. I considered the following discharge prescriptions or medication management in the emergency department Medications were administered in the Emergency Department. See MAR. Test considered but Not performed: CT: abdomen/pelvis. Care significantly affected by the following chronic conditions: Diabetes, Hypertension, Congestive Heart Failure. Counseling: I had a detailed discussion with the patient and/or guardian regarding: the historical points, exam findings, and any diagnostic results supporting the discharge/admit diagnosis, radiology results, to return to the emergency department if symptoms worsen or persist or if there are any questions or concerns that arise at home. 04/04 18:16 Order name: XRAY Abdomen With Erect cp 04/04 19:32 Order name: RAD; Complete Time: 19:45 EDMS Administered Medications: 19:57 Drug: Lactulose 30 grams Volume: 45 ml; Route: PO; jh5 Disposition Summary: 04/04/22 19:49 Discharge Ordered Location: Home cp Problem: new cp Symptoms: are unchanged cp Condition: Stable cp Diagnosis - Constipation cp Followup: cp - With: Private Physician - When: 2 - 3 days - Reason: Worsening of condition Discharge Instructions: - Discharge Summary Sheet cp - Constipation, Adult cp Forms: - Medication Reconciliation Form cp - Thank You Letter cp - Antibiotic Education cp - Prescription Opioid Use cp Signatures: Dispatcher [employer] EDMS Jack Haywood MD MD cha Page, Corey, PA PA Sheri Mendez, RN RN jh5
[2022-04-04] MEDS ORDERED: LACTULOSE 20 GM/30 ML UCUP ONE (19:56)
[2022-04-04 21:17] VITALS: BP 102/77; TEMP 98.4; O2SAT 100
== END 2022-04-04 19:57 | disposition home or self-care (01) ==
LOC: ER 16:52
DX: K59.00 Constipation, unspecified (principal); I10 Essential (primary) hypertension; E11.9 Type 2 diabetes mellitus without complications; Z95.1 Presence of aortocoronary bypass graft
CPT/HCPCS: 74019; 99283

== ENCOUNTER 2022-07-20 11:59 | Emergency (ER) | payer OTHER ==
--- OUTSIDE RECORDS SUMMARY | 2022-07-20 12:03 | XMS REPORT | Continuity of Care Document ---
:1975 Author Organization [facility] t Address [address] [place] [id number] Care Team Providers Name Role Phone TAMIKO GUILLEN Attending Clinician Unavailable JESSE LUKE Attending Clinician Unavailable NANCY NAVARRETE Attending Clinician Unavailable DARIELA RODRIGUES Attending Clinician Unavailable JOHN SALDIVAR Attending Clinician Unavailable PL, TECH 1 Attending Clinician Unavailable MD GLENN Attending Clinician Unavailable DEV MAHMOOD Attending Clinician Unavailable TRED47 Attending Clinician Unavailable AMINTA ARMSTRONG Attending Clinician Unavailable GIGI BOSWELL Attending Clinician Unavailable JESI BARRAGAN Attending Clinician Unavailable LAB90 Attending Clinician Unavailable MATTHIAS CHAUDHRY Attending Clinician Unavailable PRABHJOT SILVESTRE Attending Clinician Unavailable Lab, Adc Fam Pob I Attending Clinician Unavailable SWATI CAMPBELL Attending Clinician Unavailable Doctor Unassigned, [place] Attending Clinician Unavailable BRENDA FLYNN Attending Clinician Unavailable TAMIKO GUILLEN Admitting Clinician Unavailable PRABHJOT SILVESTRE Admitting Clinician Unavailable Payers Payer Name Policy Type Policy Number Effective Date Expiration Date Felipe bowling AETELEUTERIO HMO [id number] 2022 00:00:00 AETNA MP CVS 9 [id number] 2022 00:00:00 SILVER: 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 94 ON STAND Problems Condition Condition Condition Status Onset Resolution Last Treating Co mments Source Name Details Category Date Date Treatment Clinician Date Mild major Mild major Disease Active Juan Alberto fernandes depression depression 4-18 Se ybold 00:00: - 00 Externa l History of History of Disease Active Juan Alberto elsey automatic automatic 3-24 Seyb old internal internal 00:00: - cardiac cardiac 00 Externa defibrilla defibrilla l tor (AICD) tor (AICD) Coronary Coronary Disease Active Mirse y artery artery 3-24 Seybold disease disease 00:00: - involving involving 00 Exte rna coronary coronary l bypass bypass graft of graft of venetie venetie 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 EF is 20% Type 2 Type 2 Disease Active Ana Lilia diabetes diabetes 3-24 Seybol d mellitus mellitus 00:00: - with with 00 Externa hyperglyce hyperglyce l sara, with sara, with long-term long-term current current use of use of insulin insulin DM type 2 DM type 2 Disease Active Mir sey with with 3-24 Seybold diabetic diabetic 00:00: - mixed mixed 00 Externa hyperlipid hyperlipid l emia emia Primary Primary Disease Active Ana Lilia hypertensi hypertensi 3-24 Se ybold on on 00:00: - 00 Externa l History of History of Disease Active Overview : Ana Lilia four four 02-11 Formattin Seybold vessel vessel 00:00: g of this - coronary coronary 00 note Leaf Binner a artery artery might be l bypass bypass different graft graft from the original. [place] , [place] Allergies, Adverse Reactions, Alerts Allergy Allergy Status Severity Reaction(s) Onset Inactive Treating Comm ents Source Name Type Date Date Clinician NO KNOWN Drug Active Univers ALLERGIE Class ity of [facility] Social History Social Habit Start Date Stop Date Quantity Comments Source Sexual orientation 2022-05-15 Heterosexual Clarisa jensen Seybold 10:51:07 (finding) - External Gender identity Ana Lilia Frye ybold - External Tobacco use and 2022-05-04 2022-05-04 Smokeless tobacco Ke rodrigo Fryeybold exposure 00:00:00 00:00:00 non-user - External Alcohol intake 2022-05-04 2022-05-04 Ex-drinker Ana Lilia Soni bold 00:00:00 00:00:00 (finding) - External History of Social 2022-05-04 2022-05-04 Ana Lilia Stone function 00:00:00 00:00:00 - External Sex Ass[birth year] At [birth year] Ana Lilia bhatti 00:00:00 00:00:00 - External Smoking Status Start Date Stop Date Source Never smoked tobacco Ana Lilia [place] old - External Medications Ordered Filled Start Stop Current Ordering Indication Dosage Frequency Signature Comments Components Source Medication Medication Date Date Medication? Clinician (SIG) Name Name Insulin Yes [id number] 24U Inject 24 K elsey NPH, 4-18 units into Seybold Human,, 00:00: the skin - Isophane, 00 every 12 Leaf Binner a (NovoLIN N hours l ReliOn) 100 UNIT/ML subcutaneou s Suspension Lisinopril Yes [id number] 20mg Take 1 Ana Lilia 20 MG oral 4-18 tablet (20 Sey bold Tablet 00:00: mg total) - 00 by mouth Externa daily l Multiple Yes [id number] 1{tbl} Take 1 Ana Lilia Vitamins-Ir 3-28 tablet by Sey bold on 00:00: mouth - (Multivitam 00 daily Externa in Plus l Iron Adult) oral Tablet Insulin Yes [id number] Inject Clarisa ey Syringe-Nee 3-27 NOVOLIN N Sey bold dle U-100 00:00: RELION 100 - (RELI-ON 00 UNIT/ML SC Exter na INS SYR SUSP 18 l 1CC/30G) units into 30G 1 ML the skin does not every 12 apply Misc hours Aspirin 81 2022- No 1{each} 1 each K elsey MG oral 3-24 03-24 daily Seybold Chewable 11:06: 00:00 - Tablet 18 :00 Externa l Ticagrelor 2022-0 Yes [id number] 1{tbl} Take 1 Ana Lilia (Brilinta) 3-24 tablet by Seyb old 90 MG oral 00:00: mouth 2 - Tablet 00 times Externa daily l Lisinopril 0 Yes [id number] 10mg Take 1 Ana Lilia 10 MG oral 3-24 tablet (10 Sey bold Tablet 00:00: mg total) - 00 by mouth Externa daily l Aspirin 81 0 Yes [id number] 81mg Take 1 Ana Lilia MG oral 3-24 tablet (81 Seybol d Chewable 00:00: mg total) - Tablet 00 by mouth Externa daily l Spironolact Yes [id number] 25mg Take 1 Ana Lilia one 25 MG 3-24 tablet (25 Seyb old oral Tablet 00:00: mg total) - 00 by mouth Externa daily FOR l 30 DAYS Insulin Yes [id number] 18U Inject 18 K elsey NPH, 3-24 units into Seybold Human,, 00:00: the skin - Isophane, 00 every 12 Leaf Binner a (NovoLIN N hours l ReliOn) 100 UNIT/ML subcutaneou s Suspension Furosemide Yes [id number] 40mg Take 1 Ana Lilia 40 MG oral 3-24 tablet (40 Sey bold Tablet 00:00: mg total) - 00 by mouth Externa daily l Carvedilol Yes [id number] 3.125mg Take 1 Ana Lilia 3.125 MG 3-24 tablet Seybold oral Tablet 00:00: (3.125 mg - 00 total) by Externa mouth l every 12 hours Atorvastati Yes [id number] 40mg Take 1 Ana Lilia n Calcium 3-24 tablet (40 Seyb old 40 MG oral 00:00: mg total) - Tablet 00 by mouth Externa daily l Aspirin 81 2022-0 Yes [id number] 81mg Take 1 Ana Lilia MG oral 3-24 tablet (81 Seybol d Chewable 00:00: mg total) - Tablet 00 by mouth Externa daily l Spironolact Yes [id number] 25mg Take 1 Ana Lilia one 25 MG 3-24 tablet (25 Seyb old oral Tablet 00:00: mg total) - 00 by mouth Externa daily FOR l 30 DAYS Furosemide Yes [id number] 40mg Take 1 Ana Lilia 40 MG oral 3-24 tablet (40 Sey bold Tablet 00:00: mg total) - 00 by mouth Externa daily l Carvedilol Yes [id number] 3.125mg Take 1 Ana Lilia 3.125 MG 3-24 tablet Seybold oral Tablet 00:00: (3.125 mg - 00 total) by Externa mouth l every 12 hours Atorvastati Yes [id number] 40mg Take 1 Ana Lilia n Calcium 3-24 tablet (40 Seyb old 40 MG oral 00:00: mg total) - Tablet 00 by mouth Externa daily l Clopidogrel Yes [id number] 75mg Take 1 Ana Lilia Bisulfate 3-24 tablet (75 Seyb old (Plavix) 75 00:00: mg total) - MG oral 00 by mouth Externa Tablet daily l Lisinopril 2022- No [id number] 10mg Take 1 Ana Lilia 10 MG oral 3-24 04-18 tablet (10 Se ybold Tablet 00:00: 00:00 mg total) - 00 :00 by mouth Externa daily l Insulin 2022- No [id number] 18U Inject 18 Ana Lilia NPH, 3-24 04-18 units into Seybold Human,, 00:00: 00:00 the skin - Isophane, 00 :00 every 12 Leaf Binner a (NovoLIN N hours l ReliOn) 100 UNIT/ML subcutaneou s Suspension Atorvastati 2022- No 1{tbl} Take 1 K elsey n Calcium 3-06 03-24 tablet by Seyb old 40 MG oral 00:00: 00:00 mouth - Tablet 00 :00 daily Externa l Spironolact 2022- No 25mg Take 25 mg Ana Lilia one 25 MG 3-06 -24 by mouth Seybo ld oral Tablet 00:00: 00:00 daily FOR - 00 :00 30 DAYS Externa l Carvedilol 2022- No 3.125mg Take 3.125 Ana Lilia 3.125 MG 04-10- mg by Seybold oral Tablet 00:00: 00:00 mouth - 00 :00 every 12 Externa hours l Furosemide 2022- No 40mg Take 40 mg Ana Lilia 40 MG oral 04-10 by mouth Seyb old Tablet 00:00: 00:00 daily - 00 :00 Externa l NovoLIN N 2022- No 18U Inject 18 Ke lsey ReliOn 100 04-10 units into Se ybold UNIT/ML 00:00: 00:00 the skin - subcutaneou 00 :00 every 12 Exte rna s hours l Suspension Lisinopril 2022- No 10mg Take 10 mg Ana Lilia 10 MG oral 03-15 by mouth Seyb old Tablet 00:00: 00:00 daily - 00 :00 Externa l Brilinta 90 2022- No 1{tbl} Take 1 K elsey MG oral 02-15 tablet by Seybol d Tablet 00:00: 00:00 mouth 2 - 00 :00 times Externa daily l Immunizations Ordered Immunization Filled Immunization Date Status Commen ts Source Name Name Influenza Virus 2022 Completed Ana Lilia ybold Vaccine, No Preserv, 00:00:00 - Ex ternal age 6 months and up Influenza Virus 2022 Completed Ana Lilia ybold Vaccine, No Preserv, 00:00:00 - Ex ternal age 6 months and up Influenza Virus 2021-03-12 Completed Ana Lilia ybold Vaccine, No Preserv, 00:00:00 - Ex ternal age 6 months and up Influenza Virus 2021-03-12 Completed Ana Lilia ybold Vaccine, No Preserv, 00:00:00 - Ex ternal age 6 months and up Covid-19 Vaccine 2021-02-09 Completed Ana Lilia felton (Povo), Mrna-lnp, 00:00:00 - Ext ernal Finn Protein, Pf, 30mcg/0.3ml,IM Covid-19 Vaccine 2021-02-09 Completed Ana Lilia felton (Povo), Mrna-lnp, 00:00:00 - Ext ernal Finn Protein, Pf, 30mcg/0.3ml,IM Vital Signs Vital Name Observation Time Observation Value Comments Source Systolic blood 2022-05-29 19:11:00 110 mm[Hg] Ana Lilia Seybold - pressure External Diastolic blood 2022-05-29 19:11:00 54 mm[Hg] Kelse y Seybold - pressure External Heart rate 2022-05-29 19:11:00 119 /min Ana Lilia Wang eybold - External Respiratory rate 2022-05-29 19:11:00 15 /min Clarisa ey Seybold - External Body height 2022-05-29 19:11:00 175.3 cm Ana Lilia Wang eybold - External Body weight 2022-05-29 19:11:00 84.823 kg Ana Lilia Wang eybold - External BMI 2022-05-29 19:11:00 27.62 kg/m2 Ana Lilia Wang eybold - External Oxygen saturation in 2022-05-29 19:11:00 97 /min Ana Lilia Seybold - Arterial blood by External Pulse oximetry Systolic blood 2022-05-04 15:41:00 115 mm[Hg] Ana Lilia Seybold - pressure External Diastolic blood 2022-05-04 15:41:00 82 mm[Hg] Mirse y Seybold - pressure External Heart rate 2022-05-04 15:41:00 81 /min Ana Lilia Wang eybold - External Body temperature 2022-05-04 15:41:00 36.61 Geena Clarisa ey Seybold - External Respiratory rate 2022-05-04 15:41:00 16 /min Clarisa jensen Seybold - External Body height 2022-05-04 15:41:00 175.3 cm Ana Lilia Wang eybold - External Body weight 2022-05-04 15:41:00 83.643 kg Ana Lilia Wang eybold - External BMI 2022-05-04 15:41:00 27.23 kg/m2 Ana Lilia Wang eybold - External Oxygen saturation in 2022-05-04 15:41:00 99 /min Ana Lilia Fryeybold - Arterial blood by External Pulse oximetry Procedures This patient has no known procedures. Encounters Start End Encounter Admission Attending Care Care Encounter Source Date/Time Date/Time Type Type Clinicians Facility Department ID 2022-05-24 Outpatient [facility] [id number] [place] 08:32:51 [id number] [facility] 2022-05-04 Outpatient MINDY [facility] CAR [id number] [facility] 09:36:46 MARWAN 2022-04-19 Outpatient [facility] [id number] [place] 15:29:29 [id number] Health 2022-03-16 Outpatient [facility] [id number] [place] 11:34:05 [id number] Health 2022-03-14 Outpatient [facility] [id number] [place] 14:34:21 [id number] Health 2022-02-20 Outpatient [facility] [id number] [place] 14:07:49 [id number] Health 2022-02-19 Outpatient [facility] [id number] [place] 14:58:10 [id number] [facility] 2022-08-15 2022-08-15 Outpatient ANA LILIA LUKE [id number] Ana Lilia 14:40:00 14:40:00 JESSE Seybol d 2022-08-13 2022-08-13 Outpatient NANCY NAVARRETE [id number] Ana Lilia 14:00:00 14:00:00 Seybol d 2022-08-07 2022-08-07 Outpatient ANA LILIA RODRIGUES [id number] Ana Lilia 15:25:00 15:25:00 DARIELA Seybol d 2022-07-30 2022-07-30 Outpatient ANA LILIA SALDIVAR [id number] Ana Lilia 15:15:00 15:15:00 JOHN Seybol d 2022-07-20 2022-07-20 Outpatient PLKARINA [id number] Ana Lilia 14:00:00 14:00:00 Seybol d 2022-07-20 2022-07-20 Outpatient KARINA LUGO [id number] Ana Lilia 11:00:00 11:00:00 Seybol d 2022-07-20 2022-07-20 Outpatient JOCY BRAGG [id number] Ana Lilia 00:00:00 00:00:00 MD ANIKA Seybol d 2022-07-20 2022-07-20 Outpatient ANA LILIA RODRIGUES [id number] Ana Lilia 00:00:00 00:00:00 DARIELA Seybol d 2022-07-17 2022-07-17 Outpatient ANA LILIA BRAGG [id number] Ana Lilia 00:00:00 00:00:00 Seybol d 2022-07-16 2022-07-16 Outpatient ANA LILIA SALDIVAR [id number] Ana Lilia 00:00:00 00:00:00 JOHN Seybol d 2022-07-14 2022-07-14 Outpatient ANA LILIA MAHMOOD [id number] Ana Lilia 00:00:00 00:00:00 BRENTLY Seybol d 2022-07-13 2022-07-13 Outpatient ANA LILIA BRAGG [id number] Ana Lilia 14:00:00 14:00:00 Seybol d 2022-07-13 2022-07-13 Outpatient ANA LILIA SALDIVAR [id number] Ana Lilia 00:00:00 00:00:00 JOHN Seybol d 2022-07-10 2022-07-10 Outpatient ANA LILIA RODRIGUES [id number] Ana Lilia 00:00:00 00:00:00 DARIELA Seybol d 2022-07-10 2022-07-10 Outpatient ANA LILIA RODRIGUES [id number] Ana Lilia 00:00:00 00:00:00 DARIELA Seybol d 2022-07-06 2022-07-06 Outpatient TRED47 ANA LILIA BRAGG [id number] Ana Lilia 09:45:00 09:45:00 Seybol d 2022-07-06 2022-07-06 Outpatient ANA LILIA RODRIGUES [id number] Ana Lilia 09:10:00 09:10:00 DARIELA Seybol d 2022-07-06 2022-07-06 Outpatient ANA LILIA RODRIGUES [id number] Ana Lilia 00:00:00 00:00:00 DARIELA Seybol d 2022-07-04 2022-07-04 Outpatient ANA LILIA SALDIVAR [id number] Ana Lilia 00:00:00 00:00:00 JOHN Seybol d 2022-07-04 2022-07-04 Outpatient MYJOSE BRAGG [id number] Ana Lilia 00:00:00 00:00:00 MD ANIKA Seybol d 2022-06-25 2022-06-25 Outpatient PREZAS, ANA LILIA BRAGG [id number] Ana Lilia 00:00:00 00:00:00 JOHN Seybol d 2022-06-22 2022-06-22 Outpatient PREZAS, ANA LILIA BRAGG [id number] Ana Lilia 00:00:00 00:00:00 JOHN Seybol d 2022-06-22 2022-06-22 Outpatient NATHANIEL, ANA LILIA BRAGG [id number] Ana Lilia 00:00:00 00:00:00 AMINTA Seybol d 2022-06-20 2022-06-20 Outpatient PREZAS, ANA LILIA BRAGG [id number] Ana Lilia 00:00:00 00:00:00 JOHN Seybol d 2022-06-19 2022-06-19 Outpatient PREZAS, ANA LILIA BRAGG [id number] Ana Lilia 00:00:00 00:00:00 JOHN Seybol d 2022-06-19 2022-06-19 Outpatient PREZAS, ANA LILIA BRAGG [id number] Ana Lilia 00:00:00 00:00:00 JOHN Seybol d 2022-06-12 2022-06-12 Outpatient PREZAS, ANA LILIA BRAGG [id number] Ana Lilia 00:00:00 00:00:00 JOHN Seybol d 2022-06-11 2022-06-11 Outpatient PREZASANA LILIA [id number] Ana Lilia 00:00:00 00:00:00 JOHN Seybol d 2022-06-11 2022-06-11 Outpatient PREZAS, ANA LILIA BRAGG [id number] Ana Lilia 00:00:00 00:00:00 JOHN Seybol d 2022-06-10 2022-06-10 Outpatient ANDREIAANA LILIA [id number] Ana Lilia 00:00:00 00:00:00 GIGI Seybol d 2022-05-29 2022-05-29 Outpatient PREZASANA LILIA [id number] Ana Lilia 14:15:00 14:15:00 JOHN Seybol d 2022-05-14 2022-05-14 Outpatient PREZASANA LILIA [id number] Ana Lilia 00:00:00 00:00:00 JOHN Seybol d 2022-05-13 2022-05-13 Outpatient EZEQUIELCRYSTAL, ANA LILIA BRAGG [id number] Ana Lilia 00:00:00 00:00:00 JESI Seniloo ld 2022-05-09 2022-05-09 Outpatient PRELEDA, ANA LILIA BRAGG [id number] Ana Lilia 00:00:00 00:00:00 JOHN Seybol d 2022-05-09 2022-05-09 Outpatient PREZAFelipe, ANA LILIA BRAGG [id number] Ana Lilia 00:00:00 00:00:00 JOHN Seybol d 2022-05-08 2022-05-08 Outpatient PREZAFelipe, ANA LILIA BRAGG [id number] Ana Lilia 00:00:00 00:00:00 JOHN Seybol d 2022-05-07 2022-05-07 Outpatient LAB90 ANA LILIA BRAGG [id number] Ana Lilia 09:35:00 09:35:00 Seybol d 2022-05-04 2022-05-04 Outpatient LAB90 ANA LILIA BRAGG [id number] Ana Lilia 15:35:00 15:35:00 Seybol d 2022-05-04 2022-05-04 Outpatient YARIEL, ANA LILIA BRAGG [id number] Ana Lilia 10:45:00 10:45:00 JOHN Seybol d 2022-05-04 2022-05-04 Outpatient ANA LILIA BRAGG [id number] Ana Lilia 00:00:00 00:00:00 Seybol d 2022-04-10 2022-04-10 Outpatient ISIDORO, [facility] CAR [id number] [facility] 15:16:00 23:59:00 MATTHIAS 2022-03-15 2022-03-15 Outpatient ISIDORO, [facility] CAR [id number] [facility] 10:14:00 23:59:00 MATTHIAS 2022-02-14 2022 Inpatient E MINDY [facility] CAR [id number] [facility] 23:13:00 15:23:00 TAMIKO 2022-02-14 2022-02-14 Outpatient KONRAD [facility] GORDON [id number] [facility] 23:20:00 23:59:00 PRABHJOT 2019-08-21 2019-08-21 Laboratory Lab, [facility] [id number] 13:53:34 14:13:34 Only Fam Pob I Health [id number] [place] [id number] [facility] [id number] nal [address] 2019-08-21 2019-08-21 Outpatient Arcelia CAMPBELL [facility] [id number] Univers 14:00:00 14:00:00 SWATI pizarro [facility] 2019-08-21 2019-08-21 Letter Doctor ZARIA [id number] 00:00:00 00:00:00 (Out) Unassigned, UMESH [id number] [place] [facility] [id number] 2019-07-23 2019-07-23 Outpatient Arcelia FLYNN [facility] [id number] [facility] 13:30:00 13:30:00 BRENDA pizarro [facility] 2018-10-21 2018-10-21 Emergency E [facility] [id number] [facility] 10:50:00 10:50:00 2018-10-15 2018-10-15 Emergency E [facility] [id number] [facility] 17:05:00 17:05:00 Results This patient has no known results.
[2022-07-20] MEDS ORDERED: ASPIRIN 81 MG CHEWABLE TABLET ONE (12:39)
[2022-07-20 13:34] LABS: Absolute Lymphocytes (CBC) 2.1 K/uL (0.7-4.9); Hematocrit 29.7 % (39.6-49.0); MCV 85.5 fL (80-100); MPV 7.9 fL (7.6-11.3); RBC Red Blood Cell Count 3.47 M/uL (4.33-5.43)
--- NOTE | 2022-07-20 13:44 | RAD REPORT ---
EXAM DESCRIPTION: Jerson Single View07/20/2022 1:27 pm CLINICAL HISTORY: Chest pain COMPARISON: 2020 FINDINGS: The lungs appear clear of acute infiltrate. The heart is normal size. Postsurgical changes involve the chest. Pacemaker leads in place. IMPRESSION: No acute abnormalities displayed
[2022-07-20 13:50] LABS: Potassium 4.7 mEq/L (3.5-5.1); Troponin High Sensitivity 3.8 pg/mL (<58.9)
--- NOTE | 2022-07-20 15:52 | EDPHYS ---
Physician Documentation [facility] Name: Axel Contreras Age: 47 yrs Sex: Male : 1975 Arrival Date: 07/20/2022 Time: 11:59 Bed 6 Private MD: ED Physician Omkar Cortes HPI: 07/20 12:31 This 47 yrs old Male presents to ER via Ambulatory with complaints of Chest ms3 Pain, Shortness Of Breath. 12:31 47-year-old male with past medical history of congestive heart failure, diabetes, ms3 hyperlipidemia, hypertension, coronary artery disease presents for fatigue, shortness of breath, chest pain. Patient states he has had fatigue for 1 week. Patient stated he noted chest pain that began at 9:30 AM this morning on his way home from [place]. Patient denies alleviating or inciting factors. Patient endorses nausea, shortness of breath. Patient denies vomiting, diaphoresis.. Historical: - Allergies: 12:26 No Known Allergies; ss - PMHx: 12:14 Congestive heart failure; Diabetes - NIDDM; Hyperlipidemia; Hypertension; ss - PSHx: 12:14 CABG 2016; DEFIBRILATOR PLACEMENT 2022; ss 12:26 Heart stents; ss - Immunization history:: Adult Immunizations up to date, Client reports receiving the 2nd dose of the Covid vaccine. - Social history:: Smoking status: Patient denies any tobacco usage or history of. Patient/guardian denies using alcohol. ROS: 12:31 Constitutional: Negative for fever, and chills. Neck: Negative for injury, pain, and ms3 swelling. 12:31 Abdomen/GI: Negative for abdominal pain, nausea, vomiting, diarrhea, and constipation, MS/Extremity: Negative for injury and deformity, Skin: Negative for injury, rash, and discoloration. 12:31 Cardiovascular: Positive for chest pain. 12:31 Respiratory: Positive for shortness of breath. 12:31 All other systems are negative. Exam: 12:31 Constitutional: This is a well developed, well nourished patient who is awake, alert, ms3 and in no acute distress. Head/Face: Normocephalic, atraumatic. Neck: Trachea midline, no cervical lymphadenopathy. Supple, full range of motion without nuchal rigidity, or vertebral point tenderness. No Meningismus. Chest/axilla: Normal chest wall appearance and motion. Nontender with no deformity. Cardiovascular: Regular rate and rhythm with a normal S1 and S2. No gallops, murmurs, or rubs. Normal PMI, no JVD. No pulse deficits. Respiratory: Lungs have equal breath sounds bilaterally, clear to auscultation and percussion. No rales, rhonchi or wheezes noted. No increased work of breathing, no retractions or nasal flaring. Abdomen/GI: Soft, non-tender, with normal bowel sounds. No distension or tympany. No guarding or rebound. No evidence of tenderness throughout. Skin: Warm, dry with normal turgor. Normal color with no rashes, no lesions, and no evidence of cellulitis. MS/ Extremity: Pulses equal, no cyanosis. Neurovascular intact. Full, normal range of motion. Vital Signs: 12:24 BP 106 / 64; Pulse 80; Resp 18; Temp 97.6(TE); Pulse Ox 100% on R/A; Weight 81.65 kg; ss Height 5 ft. 9 in. ; Pain 6/10; 13:09 BP 103 / 74; Pulse 68; Resp 18; Pulse Ox 99% on R/A; ph 14:15 BP 99 / 68; Pulse 64; Resp 18; Pulse Ox 100% on R/A; ph 15:30 BP 105 / 61; Pulse 64; Resp 18; Pulse Ox 98% on R/A; ph 16:15 BP 108 / 63; Pulse 72; Resp 18; Pulse Ox 98% on R/A; ph 12:24 Body Mass Index 26.58 (81.65 kg, 175.26 cm) ss 12:24 Pain Scale: Adult ss MDM: 12:29 Patient medically screened. ms3 12:31 Differential diagnosis: abnormal EKG, coronary artery disease congestive heart failure. ms3 14:41 ED course: Patient states he is feeling better at this time. Patient agrees with repeat ms3 troponin. 15:51 HEART Score: History: Slightly Suspicious (0), ECG: Non specific repolarization ms3 disturbance / LBTB / PM (1), Age: > 45 and < 65 years (1), Risk Factors: > or = 3 Risk factors for atherosclerotic disease (2), Troponin: < or = 1 x Normal Limit (0), Total Score = 4. The patient was given aspirin in the Emergency Department. Data reviewed: vital signs, nurses notes, lab test result(s), EKG, radiologic studies, and as a result, I will discharge patient. Consideration of Admission/Observation Escalation of care including admission/observation considered. I considered the following discharge prescriptions or medication management in the emergency department Medications were administered in the Emergency Department. See MAR. Independent interpretation of the following test(s) in the Emergency Department manager monitoring: rate is 65 beats/min, Rhythm is normal sinus rhythm, regular, with no ectopy, Interpretation: normal rate, normal rhythm. Care significantly affected by the following chronic conditions: Diabetes, Hypertension, Congestive Heart Failure. Counseling: I had a detailed discussion with the patient and/or guardian regarding: the historical points, exam findings, and any diagnostic results supporting the discharge/admit diagnosis, lab results, radiology results, the need for outpatient follow up, to return to the emergency department if symptoms worsen or persist or if there are any questions or concerns that arise at home. Response to treatment: the patient's symptoms have resolved after treatment, the patient's condition has returned to base line, and as a result, I will discharge patient. Special discussion: Based on the patient's history, exam, and Dx evaluation, there is no indication for emergent intervention or inpatient Tx. It is understood by the patient/guardian that if the Sx's persist or worsen they need to return immediately for re-evaluation. ED course: Patient states he would like to be discharged at this time as he is improved. Discussed close follow-up with patient. Patient understands agrees with plan. All questions were answered. Return precautions discussed include worsening symptoms, shortness of breath, lightheadedness, chest pain, palpitations, or any other concerns. On reevaluation patient's symptoms resolved, patient is alert and orient x4, no apparent distress, nontoxic-appearing, speaking full sentences.. 07/20 12:27 Order name: Basic Metabolic Panel; Complete Time: :07/20 12:27 Order name: CBC with Diff; Complete Time: 14:07/20 12:27 Order name: Troponin HS; Complete Time: :07/20 12:29 Order name: NT PRO-BNP; Complete Time: 14:25 ms3 07/20 12:27 Order name: XRAY Chest (1 view); Complete Time: : 07/20 12:27 Order name: EKG; Complete Time: 12:28 ss 07/20 12:27 Order name: Cardiac monitoring; Complete Time: 12:54 ss 07/20 12:27 Order name: EKG - Nurse/Tech; Complete Time: 12:27 ss 07/20 12:27 Order name: IV Saline Lock; Complete Time: 12:54 ss 07/20 12:27 Order name: Labs collected and sent; Complete Time: 12:54 ss 07/20 12:27 Order name: O2 Per Protocol; Complete Time: 12:54 ss 07/20 12:27 Order name: O2 Sat Monitoring; Complete Time: 12:46 ss Administered Medications: 12:32 Drug: Aspirin PO Chewable Tablet 324 mg Route: PO; ss 13:10 Follow up: Response: No adverse reaction ph Disposition Summary: 07/20/22 15:51 Discharge Ordered Location: Home ms3 Condition: Stable ms3 Diagnosis - Other fatigue ms3 - Anemia, unspecified ms3 - Chest pain, unspecified ms3 Followup: ms3 - With: Ben Conley DO - When: 1 - 2 days - Reason: Recheck today's complaints Discharge Instructions: - Discharge Summary Sheet ms3 - Anemia ms3 - Nonspecific Chest Pain, Adult ms3 Forms: - Medication Reconciliation Form ms3 - Thank You Letter ms3 - Antibiotic Education ms3 - Prescription Opioid Use ms3 Signatures: Dispatcher [employer] Mariluz Lane RN RN Omkar Cortes DO DO ms3 Maddison Hoover RN ph
--- NOTE | 2022-07-20 15:52 | ER ---
Nurse's Notes [facility] Name: Axel Contreras Age: 47 yrs Sex: Male : 1975 Arrival Date: 07/20/2022 Time: 11:59 Bed 6 Private MD: Diagnosis: Other fatigue;Anemia, unspecified;Chest pain, unspecified Presentation: 07/20 12:24 Chief complaint: Patient states: Pt reports SOB and chest pain X 1 week. Discomfort ss increased today. Pt reports cardiac history, heart failure, defibrillator. C/O pain that radiates to left shoulder and back. Coronavirus screen: At this time, the client does not indicate any symptoms associated with coronavirus-19. Ebola Screen: No symptoms or risks identified at this time. Initial Sepsis Screen: Does the patient meet any 2 criteria? No. Patient's initial sepsis screen is negative. Does the patient have a suspected source of infection? No. Patient's initial sepsis screen is negative. Risk Assessment: Do you want to hurt yourself or someone else? Patient reports no desire to harm self or others. Onset of symptoms was July 20, 2022. 12:24 Method Of Arrival: Ambulatory ss 12:24 Acuity: GEOVANNA 2 ss Triage Assessment: 12:26 General: Appears in no apparent distress. uncomfortable, Behavior is calm, cooperative, ss appropriate for age. Pain: Complains of pain in anterior aspect of left upper chest Pain radiates to left scapular area and anterior aspect of left shoulder Pain currently is 9 out of 10 on a pain scale. Quality of pain is described as throbbing. EENT: No signs and/or symptoms were reported regarding the EENT system. Neuro: Level of Consciousness is awake, alert, obeys commands, Oriented to person, place, time, situation. Cardiovascular: Capillary refill < 3 seconds Patient's skin is warm and dry. Rhythm is sinus rhythm. Respiratory: Reports shortness of breath at rest on exertion Airway is patent Respiratory effort is even, unlabored. GI: Abdomen is flat, non-distended. : No signs and/or symptoms were reported regarding the genitourinary system. Derm: No signs and/or symptoms reported regarding the dermatologic system. Musculoskeletal: No signs and/or symptoms reported regarding the musculoskeletal system. Historical: - Allergies: 12:26 No Known Allergies; ss - PMHx: 12:14 Congestive heart failure; Diabetes - NIDDM; Hyperlipidemia; Hypertension; ss - PSHx: 12:14 CABG 2016; DEFIBRILATOR PLACEMENT 2022; ss 12:26 Heart stents; ss - Immunization history:: Adult Immunizations up to date, Client reports receiving the 2nd dose of the Covid vaccine. - Social history:: Smoking status: Patient denies any tobacco usage or history of. Patient/guardian denies using alcohol. Screenin:07 [facility] ED Fall Risk Assessment (Adult) History of falling in the last 3 months, ph including since admission No falls in past 3 months (0 pts) Confusion or Disorientation No (0 pts) Intoxicated or Sedated No (0 pts) Impaired Gait No (0 pts) Mobility Assist Device Used No (0 pt) Altered Elimination No (0 pt) Score/Fall Risk Level 0 - 2 = Low Risk Oriented to surroundings, Maintained a safe environment, Hourly rounding (assess needs \T\ fall precautionary measures) done. Abuse screen: Denies threats or abuse. Denies injuries from another. Nutritional screening: No deficits noted. Tuberculosis screening: No symptoms or risk factors identified. Assessment: 13:07 General: Appears in no apparent distress. comfortable, well groomed, Behavior is calm, ph cooperative, appropriate for age, Reports fatigue for >3 days, Denies fever, feeling ill. Pain: Complains of pain in chest Pain radiates to left arm and back Pain began 1 day ago. Neuro: Level of Consciousness is awake, alert, obeys commands, Oriented to person, place, time, situation. Cardiovascular: Reports chest pain, fatigue, lightheadedness, nausea, palpitations, shortness of breath, Capillary refill < 3 seconds in bilateral fingers Patient's skin is warm and dry. Rhythm is sinus rhythm. Respiratory: Airway is patent Respiratory effort is even, unlabored, Respiratory pattern is regular, symmetrical. GI: Reports nausea, Patient currently denies abdominal pain. Derm: Skin is pink, warm \T\ dry. Musculoskeletal: Circulation, motion, and sensation intact. Range of motion: intact in all extremities. 14:15 Reassessment: Patient appears in no apparent distress at this time. Patient and/or ph family updated on plan of care and expected duration. Pain level reassessed. Patient is alert, oriented x 3, equal unlabored respirations, skin warm/dry/pink. 15:46 Reassessment: Patient appears in no apparent distress at this time. Patient and/or ph family updated on plan of care and expected duration. Pain level reassessed. Patient is alert, oriented x 3, equal unlabored respirations, skin warm/dry/pink. ERP at bedside to speak w/ pt, pt states that he is feeling better, does not wish to be transferred for observation and does not want to stay for repeat troponin. Vital Signs: 12:24 BP 106 / 64; Pulse 80; Resp 18; Temp 97.6(TE); Pulse Ox 100% on R/A; Weight 81.65 kg; ss Height 5 ft. 9 in. ; Pain 6/10; 13:09 BP 103 / 74; Pulse 68; Resp 18; Pulse Ox 99% on R/A; ph 14:15 BP 99 / 68; Pulse 64; Resp 18; Pulse Ox 100% on R/A; ph 15:30 BP 105 / 61; Pulse 64; Resp 18; Pulse Ox 98% on R/A; ph 16:15 BP 108 / 63; Pulse 72; Resp 18; Pulse Ox 98% on R/A; ph 12:24 Body Mass Index 26.58 (81.65 kg, 175.26 cm) ss 12:24 Pain Scale: Adult ss Vitals: 13:09 Cardiac Rhythm Assessment Sinus rhythm. ph ED Course: 12:03 Patient arrived in ED. ts1 12:08 Sandeep Moreno PA is PHCP. jmm 12:08 Alex Conrad MD is Attending Physician. jm 12:25 Omkar Cortes DO is Attending Physician. [place] 12:26 Triage completed. ss 12:26 Arm band placed on right wrist. EKG completed in triage. Results shown to MD. ss 12:45 Maddison Hoover, RN is Primary Nurse. ph 12:54 Patient has correct armband on for positive identification. Placed in gown. Bed in low mm9 position. Call light in reach. Side rails up X 1. Adult w/ patient. Warm blanket given. Client placed on continuous cardiac and pulse oximetry monitoring. NIBP monitoring applied. monitor and storage bin tender on. Pulse ox on. NIBP on. 12:55 Initial lab(s) drawn, by ED staff, sent to lab. EKG done, by ED staff, reviewed by mmLavonne Tomlins DO. 13:06 Initial lab(s) drawn, by me, sent to lab. Inserted saline lock: 22 gauge in right ph antecubital area, using aseptic technique. Blood collected. 13:10 Patient maintains SpO2 saturation greater than 95% on room air. ph 13:29 XRAY Chest (1 view) In Process Unspecified. EDMS 15:46 Ben Conley DO is Referral Physician. ms3 16:37 No provider procedures requiring assistance completed. IV discontinued, intact, ph bleeding controlled, No redness/swelling at site. Pressure dressing applied. Administered Medications: 12:32 Drug: Aspirin PO Chewable Tablet 324 mg Route: PO; ss 13:10 Follow up: Response: No adverse reaction ph Medication: 13:07 VIS not applicable for this client. ph Outcome: 15:51 Discharge ordered by MD. ms3 16:36 Patient left the ED. ph 16:37 Discharged to home ambulatory, with family. ph 16:37 Condition: good 16:37 Discharge instructions given to patient, family, Instructed on discharge instructions, follow up and referral plans. Demonstrated understanding of instructions, follow-up care. Signatures: Dispatcher [employer] EDMS Sandeep Moreno PA PA jmm Blanchard, Shelby, NANCY RN Maddison Quinonez RN RN Omkar Cortes DO DO ms3 Caryl Mayberry mm9 Stacie Palma PAS PAS ts1
[2022-07-20 16:53] VITALS: TEMP 97.6
[2022-07-20 17:05] VITALS: BP 99/68; O2SAT 100
--- NOTE | 2022-07-23 12:11 | EKG ---
Test Date: 2022-07-20 Test Time: 12:22:40 Clinical Cytogenetics Director: Yuan MONTAGUE MEASUREMENT RESULTS: Intervals: Rate: 78 KS: 154 QRSD: 114 QT: 362 QTc: 412 West: P: 32 KS: 154 QRS: 1 T: -28 INTERPRETIVE STATEMENTS: Sinus rhythm with occasional premature ventricular complexes Voltage criteria for left ventricular hypertrophy Inferior infarct, age undetermined Abnormal ECG Compared to ECG 11/24/2018 09:19:07 Ventricular premature complex(es) now present Left ventricular hypertrophy now present Left-axis deviation no longer present Myocardial infarct finding still present Electronically Signed On 07-23-22 12:01:38 CDT by Zelalem Martinez
== END 2022-07-20 16:36 | disposition home or self-care (01) ==
LOC: ER 11:59
DX: D64.9 Anemia, unspecified (principal); R07.9 Chest pain, unspecified; E11.9 Type 2 diabetes mellitus without complications; I10 Essential (primary) hypertension; I50.9 Heart failure, unspecified; Z95.1 Presence of aortocoronary bypass graft; Z95.818 Presence of other cardiac implants and grafts; Z95.810 Presence of automatic (implantable) cardiac defibrillator
CPT/HCPCS: 36415; 71045; 80048; 83880; 84484; 85025; 93005; 99285

== ENCOUNTER 2022-10-09 18:02 | Emergency (ER) | payer OTHER ==
--- OUTSIDE RECORDS SUMMARY | 2022-10-09 18:08 | XMS REPORT | Continuity of Care Document ---
:1975 Author Organization [facility] t Address [address] [place] [id number] Care Team Providers Name Role Phone No, Pcp [facility] Primary Care Physician Unavailable CARLIN GARDNER Attending Clinician Unavailable TAMIKO GUILLEN Attending Clinician Unavailable DANIEL OTERO Attending Clinician Unavailable JJ ROLAND Attending Clinician Unavailable UMBERTO THOMAS Attending Clinician Unavailable JOHN SALDIVAR Attending Clinician Unavailable MD GLENN Attending Clinician Unavailable DARIELA RODRIGUES Attending Clinician Unavailable 1, ES ROOM Attending Clinician Unavailable LEILANI RUIZ Attending Clinician Unavailable JESSE LUKE Attending Clinician Unavailable NANCY NAVARRETE Attending Clinician Unavailable LAB39 Attending Clinician Unavailable LAB90 Attending Clinician Unavailable PL, TECH 1 Attending Clinician Unavailable DEV MAHMOOD Attending Clinician Unavailable TRED47 Attending Clinician Unavailable AMINTA ARMSTRONG Attending Clinician Unavailable GIGI BOSWELL Attending Clinician Unavailable JESI BARRAGAN Attending Clinician Unavailable MATTHIAS CHAUDHRY Attending Clinician Unavailable PRABHJOT SILVESTRE Attending Clinician Unavailable Lab, Adc Fam Pob I Attending Clinician Unavailable SWATI CAMPBELL Attending Clinician Unavailable Doctor Unassigned, [place] Attending Clinician Unavailable BRENDA FLYNN Attending Clinician Unavailable CARLIN GARDNER Admitting Clinician Unavailable TAMIKO GUILLEN Admitting Clinician Unavailable PRABHJOT SILVESTRE Admitting Clinician Unavailable Payers Payer Name Policy Type Policy Number Effective Date Expiration Date Rubia bowling [employer] - SPECIAL [id number] 2022 ARRANGEMENTS 00:00:00 [employer]ETNA O [id number] 2022 00:00:00 [employer]ET[employer] 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: 9 [id number] 2022 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[employer] 94 ON STAND 00:00:00 Problems Condition Condition Condition Status Onset Resolution Last Treating Co mments Source Name Details Category Date Date Treatment Clinician Date Immunodefi Immunodefi Disease Active Juan Alberto fernandes ciency due ciency due 6-28 Se ybold to to 00:00: - conditions conditions 00 Ex terna classified classified l elsewhere elsewhere Iron Iron Disease Active Ana Lilia deficiency deficiency 6-19 Se ybold anemia anemia 00:00: - secondary secondary 00 Exte rna to to l inadequate inadequate dietary dietary iron iron intake intake LARRY LARRY Disease Active Ana Lilia (obstructi (obstructi 6-19 Se ybold ve sleep ve sleep 00:00: - apnea) apnea) 00 Externa l Mild major Mild major Disease Active Juan Alberto fernandes depression depression 4-18 Se ybold 00:00: - 00 Externa l History of History of Disease Active K elsey automatic automatic 3-24 Seyb old internal internal 00:00: - cardiac cardiac 00 Externa defibrilla defibrilla l tor (AICD) tor (AICD) Coronary Coronary Disease Active Kelse y artery artery 3-24 Seybold disease disease 00:00: - involving involving 00 Exte rna coronary coronary l bypass bypass graft of graft of [place] heart with heart with angina angina pectoris [...] 2 DM type 2 Disease Active Mir tanya with with 3-24 Seybold diabetic diabetic 00:00: - mixed mixed 00 Externa hyperlipid hyperlipid l emia emia Primary Primary Disease Active Ana Lilia hypertensi hypertensi 24 Se ybold on on 00:00: - 00 Externa l History of History of Disease Active Overview : Ana Lilia four four 02-11 Formattin Seybold vessel vessel 00:00: g of this - coronary coronary 00 note Lathe Mechanic a artery artery might be l bypass bypass different graft graft from the original. [place] , [place] Allergies, Adverse Reactions, Alerts Allergy Allergy Status Severity Reaction(s) Onset Inactive Treating Comm ents Source Name Type Date Date Clinician NO KNOWN Drug Active Univers ALLERGIE Class ity of S [facility] Social History Social Habit Start Date Stop Date Quantity Comments Source Gender identity 2022-07-04 Identifies as male Juan Alberto fernandes Seybchris 09:17:07 gender (finding) - Lathe Mechanic al Sexual orientation 2022-05-15 Heterosexual Clarisa mikey Seybold 10:51:07 (finding) - External Alcohol intake 2022-08-27 2022-08-27 Ex-drinker Ana Lilia Soni bold 00:00:00 00:00:00 (finding) - External Tobacco use and 2022-05-04 2022-05-04 Smokeless tobacco Mark pikeey Seybold exposure 00:00:00 00:00:00 non-user - External History of Social 2022-05-04 2022-05-04 Ana Lilia Seybchris function 00:00:00 00:00:00 - External Sex Ass[birth year] At [birth year] [place] [facility] Sm[facility] Status Start Date Stop Date Source Never smoked tobacco Ana Lilia perez - External Medications Ordered Filled Start Stop Current Ordering Indication Dosage Frequency Signature Comments Components Source Medication Medication Date Date Medication? Clinician (SIG) Name Name Magnesium Yes 20mg Take 20 mg Ke lsey 30 MG oral 7-14 by mouth Seybo ld Tablet 10:38: daily NOT - 39 TAKING Externa l Polyethylen 2022-0 Yes Take by Mir sey e Glycol 7-14 mouth Seybold 3350 10:38: Every 2 - - (MIRALAX 39 3 days Externa OR) l Lisinopril 2022-0 Yes 10mg Take 1 Kelse y 10 MG oral 7-14 tablet (10 Sey bold Tablet 10:38: mg total) - 39 by mouth Externa daily l Magnesium 2022-0 Yes 20mg Take 20 mg Ke lsey 30 MG oral 7-14 by mouth Seybo ld Tablet 10:38: daily NOT - 39 TAKING Externa l Polyethylen 2022-0 Yes Take by Mir sey e Glycol 7-14 mouth Seybold 3350 10:38: Every 2 - - (MIRALAX 39 3 days Externa OR) l Lisinopril 2022-0 Yes 10mg Take 1 Kelse y 10 MG oral 7-14 tablet (10 Sey bold Tablet 10:38: mg total) - 39 by mouth Externa daily l Magnesium 2022-0 Yes 20mg Take 20 mg Ke lsey 30 MG oral 6-19 by mouth 2 Sey bold Tablet 14:50: times - 27 daily Externa l Polyethylen 2022-0 Yes Take by Mir sey e Glycol 6-19 mouth Seybold 3350 14:50: - (MIRALAX 27 Externa OR) l Lisinopril 2022-0 Yes 10mg Take 1 Kelse y 10 MG oral 6-19 tablet (10 Sey bold Tablet 14:50: mg total) - 27 by mouth Externa daily l Insulin 2022-0 Yes [id number] 20U Inject 20 K elsey NPH, 6-19 units into Seybold Human,, 00:00: the skin - Isophane, 00 every 12 Lathe Mechanic a (NovoLIN N hours l ReliOn) 100 UNIT/ML subcutaneou s Suspension Clopidogrel 2022-0 Yes [id number] 75mg Take 1 Ana Lilia Bisulfate 6-19 tablet (75 Seyb old (Plavix) 75 00:00: mg total) - MG oral 00 by mouth Externa Tablet daily l Aspirin 81 2022-0 Yes [id number] 81mg Take 1 Ana Lilia MG oral 6-19 tablet (81 Seybol d Chewable 00:00: mg total) - Tablet 00 by mouth Externa daily l Insulin 2022-0 Yes [id number] 20U Inject 20 K elsey NPH, 6-19 units into Seybold Human,, 00:00: the skin - Isophane, 00 every 12 Lathe Mechanic a (NovoLIN N hours l ReliOn) 100 UNIT/ML subcutaneou s Suspension Clopidogrel 2022-0 Yes [id number] 75mg Take 1 Ana Lilia Bisulfate 6-19 tablet (75 Seyb old (Plavix) 75 00:00: mg total) - MG oral 00 by mouth Externa Tablet daily l Aspirin 81 2022-0 Yes [id number] 81mg Take 1 Ana Lilia MG oral 6-19 tablet (81 Seybol d Chewable 00:00: mg total) - Tablet 00 by mouth Externa daily l Insulin 2022-0 Yes [id number] 20U Inject 20 K elsey NPH, 6-19 units into Seybold Human,, 00:00: the skin - Isophane, 00 every 12 Lathe Mechanic a (NovoLIN N hours l ReliOn) 100 UNIT/ML subcutaneou s Suspension Clopidogrel 2022-0 Yes [id number] 75mg Take 1 Ana Lilia Bisulfate 6-19 tablet (75 Seyb old (Plavix) 75 00:00: mg total) - MG oral 00 by mouth Externa Tablet daily l Aspirin 81 2022-0 Yes [id number] 81mg Take 1 Ana Lilia MG oral 6-19 tablet (81 Seybol d Chewable 00:00: mg total) - Tablet 00 by mouth Externa daily l Insulin 2022-0 2023- No [id number] 24U Inject 24 Ana Lilia NPH, 6-02 06-19 units into Seybold Human,, 00:00: 00:00 the skin - Isophane, 00 :00 every 12 Lathe Mechanic a (NovoLIN N hours l ReliOn) 100 UNIT/ML subcutaneou s Suspension Insulin 2022-0 Yes [id number] 24U Inject 24 K elsey NPH, 4-18 units into Seybold Human,, 00:00: the skin - Isophane, 00 every 12 Lathe Mechanic a (NovoLIN N hours l ReliOn) 100 UNIT/ML subcutaneou s Suspension Lisinopril 2022-0 Yes [id number] 20mg Take 1 Ana Lilia 20 MG oral 4-18 tablet (20 Sey bold Tablet 00:00: mg total) - 00 by mouth Externa daily l Multiple Yes [id number] 1{tbl} Take 1 Ana Lilia Vitamins-Ir 3-28 tablet by Sey bold on 00:00: mouth - (Multivitam 00 daily Externa in Plus l Iron Adult) oral Tablet Multiple Yes [id number] 1{tbl} Take 1 Ana Lilia Vitamins-Ir 3-28 tablet by Sey bold on 00:00: mouth - (Multivitam 00 daily Externa in Plus l Iron Adult) oral Tablet Multiple Yes [id number] 1{tbl} Take 1 Ana Lilia Vitamins-Ir 3-28 tablet by Sey bold on 00:00: mouth - (Multivitam 00 daily Externa in Plus l Iron Adult) oral Tablet Multiple Yes [id number] 1{tbl} Take 1 Ana Lilia Vitamins-Ir 3-28 tablet by Sey bold on 00:00: mouth - (Multivitam 00 daily Externa in Plus l Iron Adult) oral Tablet Insulin Yes [id number] Inject Clarisa ey Syringe-Nee 3-27 NOVOLIN N Sey bold dle U-100 00:00: RELION 100 - (RELI-ON 00 UNIT/ML SC Exter na INS SYR SUSP 18 l 1CC/30G) units into 30G 1 ML the skin does not every 12 apply Misc hours Insulin Yes [id number] Inject Clarisa ey Syringe-Nee 3-27 NOVOLIN N Sey bold dle U-100 00:00: RELION 100 - (RELI-ON 00 UNIT/ML SC Exter na INS SYR SUSP 18 l 1CC/30G) units into 30G 1 ML the skin does not every 12 apply Misc hours Insulin Yes [id number] Inject Clarisa ey Syringe-Nee 3-27 NOVOLIN N Sey bold dle U-100 00:00: RELION 100 - (RELI-ON 00 UNIT/ML SC Exter na INS SYR SUSP 18 l 1CC/30G) units into 30G 1 ML the skin does not every 12 apply Misc hours Insulin Yes [id number] Inject Clarisa ey Syringe-Nee 3-27 NOVOLIN N Sey bold dle U-100 00:00: RELION 100 - (RELI-ON 00 UNIT/ML SC Exter na INS SYR SUSP 18 l 1CC/30G) units into 30G 1 ML the skin does not every 12 apply Misc hours Aspirin 81 2022-0 2023- No 1{each} 1 each K elsey MG oral 3-24 03-24 daily Seybold Chewable 11:06: 00:00 - Tablet 18 :00 Externa l Spironolact 0 Yes [id number] 25mg Take 1 Ana Lilia one 25 MG 3-24 tablet (25 Seyb old oral Tablet 00:00: mg total) - 00 by mouth Externa daily FOR l 30 DAYS Furosemide 0 Yes [id number] 40mg Take 1 Ana Lilia 40 MG oral 3-24 tablet (40 Sey bold Tablet 00:00: mg total) - 00 by mouth Externa daily l Carvedilol Yes [id number] 3.125mg Take 1 Ana Lilia 3.125 MG 3-24 tablet Seybold oral Tablet 00:00: (3.125 mg - 00 total) by Externa mouth l every 12 hours Atorvastati Yes [id number] 40mg Take 1 Ana Lilia n Calcium 3-24 tablet (40 Seyb old 40 MG oral 00:00: mg total) - Tablet 00 by mouth Externa daily l Spironolact 0 Yes [id number] 25mg Take 1 Ana Lilia one 25 MG 3-24 tablet (25 Seyb old oral Tablet 00:00: mg total) - 00 by mouth Externa daily FOR l 30 DAYS Furosemide 0 Yes [id number] 40mg Take 1 Ana Lilia 40 MG oral 3-24 tablet (40 Sey bold Tablet 00:00: mg total) - 00 by mouth Externa daily l Carvedilol Yes [id number] 3.125mg Take 1 Ana Lilia 3.125 MG 3-24 tablet Seybold oral Tablet 00:00: (3.125 mg - 00 total) by Externa mouth l every 12 hours Atorvastati Yes [id number] 40mg Take 1 Ana Lilia n Calcium 3-24 tablet (40 Seyb old 40 MG oral 00:00: mg total) - Tablet 00 by mouth Externa daily l Spironolact Yes [id number] 25mg Take 1 Ana Lilia one 25 MG 3-24 tablet (25 Seyb old oral Tablet 00:00: mg total) - 00 by mouth Externa daily FOR l 30 DAYS Furosemide 2022-0 Yes [id number] 40mg Take 1 Ana Lilia 40 MG oral 3-24 tablet (40 Sey bold Tablet 00:00: mg total) - 00 by mouth Externa daily l Carvedilol 2022-0 Yes [id number] 3.125mg Take 1 Ana Lilia 3.125 MG 3-24 tablet Seybold oral Tablet 00:00: (3.125 mg - 00 total) by Externa mouth l every 12 hours Atorvastati 2022-0 Yes [id number] 40mg Take 1 Ana Lilia n Calcium 3-24 tablet (40 Seyb old 40 MG oral 00:00: mg total) - Tablet 00 by mouth Externa daily l Ticagrelor 2022-0 Yes [id number] 1{tbl} Take 1 Ana Lilia (Brilinta) 3-24 tablet by Seyb old 90 MG oral 00:00: mouth 2 - Tablet 00 times Externa daily l Lisinopril 2022-0 Yes [id number] 10mg Take 1 Ana Lilia 10 MG oral 3-24 tablet (10 Sey bold Tablet 00:00: mg total) - 00 by mouth Externa daily l Aspirin 81 2022-0 Yes [id number] 81mg Take 1 Ana Lilia MG oral 3-24 tablet (81 Seybol d Chewable 00:00: mg total) - Tablet 00 by mouth Externa daily l Spironolact 2022-0 Yes [id number] 25mg Take 1 Ana Lilia one 25 MG 3-24 tablet (25 Seyb old oral Tablet 00:00: mg total) - 00 by mouth Externa daily FOR l 30 DAYS Insulin 2022-0 Yes [id number] 18U Inject 18 K elsey NPH, 3-24 units into Seybold Human,, 00:00: the skin - Isophane, 00 every 12 Lathe Mechanic a (NovoLIN N hours l ReliOn) 100 UNIT/ML subcutaneou s Suspension Furosemide 2022-0 Yes [id number] 40mg Take 1 Ana Lilia 40 MG oral 3-24 tablet (40 Sey bold Tablet 00:00: mg total) - 00 by mouth Externa daily l Carvedilol Yes [id number] 3.125mg Take 1 Ana Lilia 3.125 MG 3-24 tablet Seybold oral Tablet 00:00: (3.125 mg - 00 total) by Externa mouth l every 12 hours Atorvastati 0 Yes [id number] 40mg Take 1 Ana Lilia n Calcium 3-24 tablet (40 Seyb old 40 MG oral 00:00: mg total) - Tablet 00 by mouth Externa daily l Aspirin 81 0 Yes [id number] 81mg Take 1 Ana Lilia MG oral 3-24 tablet (81 Seybol d Chewable 00:00: mg total) - Tablet 00 by mouth Externa daily l Spironolact 0 Yes [id number] 25mg Take 1 Ana Lilia one 25 MG 3-24 tablet (25 Seyb old oral Tablet 00:00: mg total) - 00 by mouth Externa daily FOR l 30 DAYS Furosemide 2022-0 Yes [id number] 40mg Take 1 Ana Lilia 40 MG oral 3-24 tablet (40 Sey bold Tablet 00:00: mg total) - 00 by mouth Externa daily l Carvedilol Yes [id number] 3.125mg Take 1 Ana Lilia 3.125 MG 3-24 tablet Seybold oral Tablet 00:00: (3.125 mg - 00 total) by Externa mouth l every 12 hours Atorvastati 0 Yes [id number] 40mg Take 1 Ana Lilia n Calcium 3-24 tablet (40 Seyb old 40 MG oral 00:00: mg total) - Tablet 00 by mouth Externa daily l Clopidogrel 0 Yes [id number] 75mg Take 1 Ana Lilia Bisulfate 3-24 tablet (75 Seyb old (Plavix) 75 00:00: mg total) - MG oral 00 by mouth Externa Tablet daily l Aspirin 81 2022-0 2022- No [id number] 81mg Take 1 Ana Lilia MG oral 3-24 06-19 tablet (81 Seybo ld Chewable 00:00: 00:00 mg total) - Tablet 00 :00 by mouth Externa daily l Clopidogrel 2022-0 2022- No [id number] 75mg Take 1 Ana Lilia Bisulfate 3-24 06-19 tablet (75 Sey bold (Plavix) 75 00:00: 00:00 mg total) - MG oral 00 :00 by mouth Externa Tablet daily l Lisinopril 2022-0 2022- No [id number] 10mg Take 1 Ana Lilia 10 MG oral 05-04-18 tablet (10 Se ybold Tablet 00:00: 00:00 mg total) - 00 :00 by mouth Externa daily l Insulin 2022-0 2022- No [id number] 18U Inject 18 Ana Lilia NPH, 24 04-18 units into Seybold Human,, 00:00: 00:00 the skin - Isophane, 00 :00 every 12 Lathe Mechanic a (NovoLIN N hours l ReliOn) 100 UNIT/ML subcutaneou s Suspension Atorvastati 2022- No 1{tbl} Take 1 K elsey n Calcium 04-16 tablet by Seyb old 40 MG oral 00:00: 00:00 mouth - Tablet 00 :00 daily Externa l Spironolact 2022-2022- No 25mg Take 25 mg Ana Lilia one 25 MG 04-16 by mouth Seybo ld oral Tablet 00:00: 00:00 daily FOR - 00 :00 30 DAYS Externa l Carvedilol 2022-2022- No 3.125mg Take 3.125 Ana Lilia 3.125 MG 04-10-24 mg by Seybold oral Tablet 00:00: 00:00 mouth - 00 :00 every 12 Externa hours l Furosemide 2022-0 2022- No 40mg Take 40 mg Ana Lilia 40 MG oral 04-10-24 by mouth Seyb old Tablet 00:00: 00:00 daily - 00 :00 Externa l NovoLIN N 2022-0 2022- No 18U Inject 18 Ke lsey ReliOn 100 2-08 05-24 units into Se ybold UNIT/ML 00:00: 00:00 the skin - subcutaneou 00 :00 every 12 Exte rna s hours l Suspension Lisinopril 2022-2022- No 10mg Take 10 mg Ana Lilia 10 MG oral 03-15-24 by mouth Seyb old Tablet 00:00: 00:00 daily - 00 :00 Externa l Brilinta 90 2022-0 2022- No 1{tbl} Take 1 K elsey MG oral 1-06 13-24 tablet by Seybol d Tablet 00:00: 00:00 mouth 2 - 00 :00 times Externa daily l Immunizations Ordered Immunization Filled Immunization Date Status Commen ts Source Name Name Influenza Virus 2022 Completed Ana Lilia Se ybold Vaccine, No Preserv, 00:00:00 - Ex ternal age 6 months and up Influenza Virus 2022 Completed Ana Lilia Se ybold Vaccine, No Preserv, 00:00:00 - Ex ternal age 6 months and up Influenza Virus 2022 Completed Ana Lilia Se ybold Vaccine, No Preserv, 00:00:00 - Ex ternal age 6 months and up Influenza Virus 2022 Completed Ana Lilia Se ybold Vaccine, No Preserv, 00:00:00 - Ex ternal age 6 months and up Influenza Virus 2022 Completed Ana Lilia Se ybold Vaccine, No Preserv, 00:00:00 - Ex ternal age 6 months and up Influenza Virus 2021-03-12 Completed Ana Lilia Se ybold Vaccine, No Preserv, 00:00:00 - Ex ternal age 6 months and up Influenza Virus 2021-03-12 Completed Ana Lilia Se ybold Vaccine, No Preserv, 00:00:00 - Ex ternal age 6 months and up Influenza Virus 2021-03-12 Completed Ana Lilia Se ybold Vaccine, No Preserv, 00:00:00 - Ex ternal age 6 months and up Influenza Virus 2021-03-12 Completed Ana Lilia Se ybold Vaccine, No Preserv, 00:00:00 - Ex ternal age 6 months and up Influenza Virus 2021-03-12 Completed Ana Lilia Se ybold Vaccine, No Preserv, 00:00:00 - Ex ternal age 6 months and up Covid-19 Vaccine 2021-02-09 Completed Ana Lilia S eybold (EventKloud), Mrna-lnp, 00:00:00 - Ext ernal Finn Protein, Pf, 30mcg/0.3ml,IM Covid-19 Vaccine 2021-02-09 Completed Ana Lilia S eybold (Pfizer), Mrna-lnp, 00:00:00 - Ext ernal Finn Protein, Pf, 30mcg/0.3ml,IM Covid-19 Vaccine 2021-02-09 Completed Ana Lilia S eybold (EventKloud), Mrna-lnp, 00:00:00 - Ext ernal Finn Protein, Pf, 30mcg/0.3ml,IM Covid-19 Vaccine 2021-02-09 Completed Ana Lilia jensenbernice (EventKloud), Mrna-lnp, 00:00:00 - Ext ernal Finn Protein, Pf, 30mcg/0.3ml,IM Covid-19 Vaccine 2021-02-09 Completed Ana Lilia jensenbernice (EventKloud), Mrna-lnp, 00:00:00 - Ext ernal Finn Protein, Pf, 30mcg/0.3ml,IM Vital Signs Vital Name Observation Time Observation Value Comments Source Systolic blood 2022-08-27 21:52:00 128 mm[Hg] Ana Lilia Fryeybold - pressure External Diastolic blood 2022-08-27 21:52:00 76 mm[Hg] Akash bhakta Seybold - pressure External Heart rate 2022-08-27 21:52:00 72 /min Ana Lilia Wang purnima - External Body temperature 2022-08-27 21:52:00 36.61 Geena Clarisa jensen Seybold - External Respiratory rate 2022-08-27 21:52:00 14 /min Clarisa mikey ybchris - External Body height 2022-08-27 21:52:00 175.3 cm Ana Lilia Wang purnima - External Body weight 2022-08-27 21:52:00 88.451 kg Ana Lilia Wang purnima - External BMI 2022-08-27 21:52:00 28.80 kg/m2 Ana Lilia S purnima - External Oxygen saturation in 2022-08-27 21:52:00 99 /min Ana Lilia Stone - Arterial blood by External Pulse oximetry Systolic blood 2022-08-24 15:34:00 110 mm[Hg] Ana Lilia Stone - pressure External Diastolic blood 2022-08-24 15:34:00 70 mm[Hg] Akash bhakta Seybold - pressure External Heart rate 2022-08-24 15:34:00 70 /min Ana Lilia Rubia mikeybomeryl - External Body temperature 2022-08-24 15:34:00 36.72 Geena Clarisa ey Seybold - External Respiratory rate 2022-08-24 15:34:00 16 /min Clarisa ey Seybold - External Body height 2022-08-24 15:34:00 175.3 cm Ana Lilia S eybold - External Body weight 2022-08-24 15:34:00 88.179 kg Ana Lilia S eybold - External BMI 2022-08-24 15:34:00 28.71 kg/m2 Ana Lilia S eybold - External Oxygen saturation in 2022-08-24 15:34:00 97 /min Ana Lilia Seybold - Arterial blood by External Pulse oximetry Systolic blood 2022-07-30 19:49:00 112 mm[Hg] Ana Lilia Seybold - pressure External Diastolic blood 2022-07-30 19:49:00 68 mm[Hg] Mirse y Seybold - pressure External Heart rate 2022-07-30 19:49:00 69 /min Ana Lilia S eybold - External Body temperature 2022-07-30 19:49:00 36.61 Geena Clarisa ey Seybold - External Respiratory rate 2022-07-30 19:49:00 14 /min Clarisa ey Seybold - External Body height 2022-07-30 19:49:00 175.3 cm Ana Lilia S eybold - External Body weight 2022-07-30 19:49:00 85.276 kg Ana Lilia S eybold - External BMI 2022-07-30 19:49:00 27.76 kg/m2 Ana Lilia S eybold - External Oxygen saturation in 2022-07-30 19:49:00 97 /min Ana Lilia Seybold - Arterial blood by External Pulse oximetry Systolic blood 2022-05-29 19:11:00 110 mm[Hg] Ana Lilia Seybold - pressure External Diastolic blood 2022-05-29 19:11:00 54 mm[Hg] Mirse y Seybold - pressure External Heart rate 2022-05-29 19:11:00 119 /min Ana Lilia S eybold - External Respiratory rate 2022-05-29 19:11:00 15 /min Clarisa ey Seybold - External Body height 2022-05-29 19:11:00 175.3 cm Ana Lilia S eybold - External Body weight 2022-05-29 19:11:00 84.823 kg Ana Lilia S eybold - External BMI 2022-05-29 19:11:00 27.62 kg/m2 Ana Lilia jensenbold - External Oxygen saturation in 2022-05-29 19:11:00 97 /min Ana Lilia Stone - Arterial blood by External Pulse oximetry Systolic blood 2022-05-04 15:41:00 115 mm[Hg] Ana Lilia Fryeybold - pressure External Diastolic blood 2022-05-04 15:41:00 82 mm[Hg] Akash y Seybold - pressure External Heart rate 2022-05-04 15:41:00 81 /min Ana Lilia S eybold - External Body temperature 2022-05-04 15:41:00 36.61 Geena Clarisa ey Seybold - External Respiratory rate 2022-05-04 15:41:00 16 /min Clarisa ey Seybold - External Body height 2022-05-04 15:41:00 175.3 cm Ana Lilia Wang eybold - External Body weight 2022-05-04 15:41:00 83.643 kg Ana Lilia jensenbold - External BMI 2022-05-04 15:41:00 27.23 kg/m2 Ana Lilia jensenbold - External Oxygen saturation in 2022-05-04 15:41:00 99 /min Ana Lilia Stone - Arterial blood by External Pulse oximetry Procedures This patient has no known procedures. Plan of Care Planned Activity Planned Date Details Comments Source Future Scheduled 2022-10-12 Influenza Vaccine (#1) [facility] 00:00:00 [code = Influenza Vaccine [facility] (#1)] Future Scheduled 2022-02-[address] [facility] 00:00:00 (12+) [code = DEPRESSION [facility] SCREENING (12+)] Future Scheduled 2009 Lipid panel (procedure) [facility] 00:00:00 [code = 41168327] Medical Ce nter Future Scheduled 1993 DTAP/TDAP/TD VACCINES ([address] [facility] 00:00:00 - Tdap) [code = Medical Cent er DTAP/TDAP/TD VACCINES (1 - Tdap)] Future Scheduled 1992-02-23 HEPATITIS C [facility]CRE[facility]ING [facility] [code = HEPATITIS [facility] SCREENING] Future Scheduled [address] [facility] 00:00:00 virus screening [facility] (procedure) [code = 372385717] Future Scheduled [address] [facility] 00:00:00 Counseling and Screening [facility] (12+) [code = Tobacco Cessation Counseling and Screening (12+)] Future Scheduled 1980-02-23 Pneumococcal Vaccine: [facility] 00:00:00 0-64 Years (1 - PCV) [facility] [code = Pneumococcal Vaccine: 0-64 Years (1 - PCV)] Future Scheduled 1974 COVID-19 VACCINE (#1) [facility] 00:00:00 [code = COVID-19 VACCINE [facility] (#1)] Future Scheduled 1974 CT Colonography (combo) [facility] 00:00:00 [code = CT Colonography [facility] (combo)] Future Scheduled 1974 Screening for malignant [facility] 00:00:00 neoplasm of colon Medical Ce nter (procedure) [code = 335194371] Future Scheduled 1974 Screening for malignant [facility] 00:00:00 neoplasm of colon Medical Ce nter (procedure) [code = 863187174] Future Scheduled 1974 Screening for malignant [facility] 00:00:00 neoplasm of colon Medical Ce nter (procedure) [code = 811701616] Future Scheduled 1974 Screening for malignant [facility] 00:00:00 neoplasm of colon Medical Ce nter (procedure) [code = 524066319] Future Scheduled 1974 Sigmoidoscopy [code = [facility] S[facility]oscopy] Medical Cent[facility] r Future Appointment 2022-10-25 Carlin Gardner MD, [address] [facility] 16:55:00 [facility]; [address] [place] [id number] Future Appointment 2022-10-25 Carlin Gardner MD, [address] [facility] 16:55:00 [facility]; [address] [place] [address] Procedure 2022-10-25 ANGIOGRAM, CORONARY, [facility] 16:55:00 INCLUDING BYPASS GRAFT, [facility] WITH CARDIAC CATHETERIZATION, WITH PERCUTANEOUS CORONARY INTERVENTION IF INDICATED Encounters Start End Encounter Admission Attending Care Care Encounter Source Date/Time Date/Time Type Type Clinicians Facility Department ID 2022-09-27 Outpatient [facility] [facility] [id number] [facility] 16:10:38 CARLIN 2022-09-06 Outpatient [facility] [id number] [place] 07:39:14 [id number] [facility] 2022-08-22 Outpatient [facility] [id number] [place] 08:28:22 [id number] [facility] 2022-08-08 Outpatient AMOS GARDNER [facility] Surgery [id number] [facility] 09:53:39 CARLIN 2022-05-24 Outpatient [facility] [id number] [place] 08:32:51 [id number] [facility] 2022-05-04 Outpatient MINDY [facility] CAR [id number] [facility] 09:36:46 MARJOSE R 2022-04-19 Outpatient [facility] [id number] [place] 15:29:29 [id number] [facility] 2022-03-16 Outpatient [facility] [id number] [place] 11:34:05 [id number] [facility] 2022-03-14 Outpatient [facility] [id number] [place] 14:34:21 [id number] [facility] 2022-02-20 Outpatient [facility] [id number] [place] 14:07:49 [id number] [facility] 2022-02-19 Outpatient [facility] [id number] [place] 14:58:10 [id number] [facility] 2022-11-09 2022-11-09 Outpatient DANIEL OTERO [id number] [place] 16:00:00 16:00:00 Seybol d 2022-11-09 2022-11-09 Outpatient DANIEL OTERO [id number] [place] 16:00:00 16:00:00 Seybol d 2022-10-25 2022-10-25 Outpatient ANA LILIA ROLAND [id number] [place] 07:00:00 07:00:00 JJ Seybol d 2022-10-24 2022-10-24 Outpatient ANA LILIA THOMAS [id number] [place] 10:45:00 10:45:00 UMBERTO Seybol d 2022-10-08 2022-10-08 Outpatient ANA LILIA SALDIVAR [id number] [place] 16:15:00 16:15:00 JOHN Seybol d 2022-10-04 2022-10-04 Outpatient PREZAS ANA LILIA BRAGG [id number] [place] 00:00:00 00:00:00 JOHN Seybol d 2022-10-04 2022-10-04 Outpatient PREZAS ANA LILIA BRAGG [id number] [place] 00:00:00 00:00:00 JOHN Seybol d 2022-10-04 2022-10-04 Outpatient PREZAS ANA LILIA BRAGG [id number] [place] 00:00:00 00:00:00 JOHN Seybol d 2022-09-28 2022-09-28 Outpatient PREZAS ANA LILIA BRAGG [id number] [place] 00:00:00 00:00:00 JOHN Seybol d 2022-09-25 2022-09-25 Outpatient JOCY BRAGG [id number] [place] 00:00:00 00:00:00 MD ANIKA Seybol d 2022-09-19 2022-09-19 Outpatient LILIAANA LILIA OYO [id number] [place] 00:00:00 00:00:00 DARIELA Seybol d 2022-09-14 2022-09-14 Outpatient LILIAANA LILIA [id number] [place] 15:40:00 15:40:00 DARIELA Seybol d 2022-09-02 2022-09-02 Outpatient 1, ES ANA LILIA BRAGG [id number] [place] 19:30:00 19:30:00 Seybol d 2022-08-27 2022-08-27 Outpatient PREZARubia ANA LILIA BRAGG [id number] [place] 16:45:00 16:45:00 JOHN Seybol d 2022-08-24 2022-08-24 Outpatient LEILANI RUIZ [id number] [place] 10:30:00 10:30:00 Seybol d 2022-08-24 2022-08-24 Outpatient ANA LILIA BRAGG [id number] [place] 00:00:00 00:00:00 Seybol d 2022-08-24 2022-08-24 Outpatient MYKELSEYONL ANA LILIA BRAGG [id number] [place] 00:00:00 00:00:00 MD ANIKA Seybol d 2022-08-21 2022-08-21 Outpatient ANA LILIA ROLAND [id number] [place] 10:00:00 10:00:00 JJ Seybol d 2022-08-20 2022-08-20 Outpatient ANA LILIA SALDIVAR [id number] [place] 00:00:00 00:00:00 JOHN Seybol d 2022-08-18 2022-08-18 Outpatient JOCY ANA LILIA BRAGG [id number] [place] 00:00:00 00:00:00 MD ANIKA Seybol d 2022-08-18 2022-08-18 Outpatient JOCY ANA LILIA BRAGG [id number] [place] 00:00:00 00:00:00 MD ANIKA Seybol d 2022-08-17 2022-08-17 Outpatient ANA LILIA RODRIGUES [id number] [place] 00:00:00 00:00:00 DARIELA Seybol d 2022-08-15 2022-08-15 Outpatient ANA LILIA LUKE [id number] [place] 14:40:00 14:40:00 JESSE Seybol d 2022-08-13 2022-08-13 Outpatient NANCY NAVARRETE [id number] [place] 14:00:00 14:00:00 Seybol d 2022-08-08 2022-08-08 Outpatient ANA LILIA BRAGG [id number] [place] 00:00:00 00:00:00 Seybol d 2022-08-07 2022-08-07 Outpatient ANA LILIA BRAGG [id number] [place] 16:10:00 16:10:00 Seybol d 2022-08-07 2022-08-07 Outpatient LAB39 ANA LILIA BRAGG [id number] [place] 16:05:00 16:05:00 Seybol d 2022-08-07 2022-08-07 Outpatient ANA LILIA RODRIGUES [id number] [place] 15:25:00 15:25:00 DARIELA Seybol d 2022-08-03 2022-08-03 Outpatient ANA LILIA BRAGG [id number] [place] 15:30:00 15:30:00 Seybol d 2022-08-03 2022-08-03 Outpatient ANA LILIA BRAGG [id number] [place] 14:30:00 14:30:00 Seybol d 2022-08-03 2022-08-03 Outpatient ANA LILIA BRAGG [id number] [place] 14:00:00 14:00:00 Seybol d 2022-08-03 2022-08-03 Outpatient ANA LILIA BRAGG [id number] [place] 13:00:00 13:00:00 Seybol d 2022-08-03 2022-08-03 Outpatient LILIAANA LILIA [id number] [place] 00:00:00 00:00:00 DARIELA Seybol d 2022-07-31 2022-07-31 Outpatient PREANA LILIA TOMPKINS [id number] [place] 00:00:00 00:00:00 JOHN Seybol d 2022-07-31 2022-07-31 Outpatient PREZAANA LILIA Wang [id number] [place] 00:00:00 00:00:00 OJHN Seybol d 2022-07-30 2022-07-30 Outpatient LAB90 ANA LILIA BRAGG [id number] [place] 15:45:00 15:45:00 Seybol d 2022-07-30 2022-07-30 Outpatient PREANA LILIA TOMPKINS [id number] [place] 15:15:00 15:15:00 JOHN Seybol d 2022-07-23 2022-07-[address], TECH ANA LILIA BRAGG [id number] [place] 00:00:00 00:00:00 Seybol d 2022-07-20 2022-07-[address], TECH ANA LILIA BRAGG [id number] [place] 14:00:00 14:00:00 Seybol d 2022-07-20 2022-07-[address], TECH ANA LILIA BRAGG [id number] [place] 11:00:00 11:00:00 Seybol d 2022-07-20 2022-07-20 Outpatient MYKELSEYONYuan BRAGG [id number] [place] 00:00:00 00:00:00 MD ANIKA Seybol d 2022-07-20 2022-07-20 Outpatient LILIAANA LILIA [id number] [place] 00:00:00 00:00:00 DARIELA Seybol d 2022-07-17 2022-07-17 Outpatient ANA LILIA BRAGG [id number] [place] 00:00:00 00:00:00 Seybol d 2022-07-16 2022-07-16 Outpatient PREZASANA LILIA [id number] [place] 00:00:00 00:00:00 JOHN Seybol d 2022-07-14 2022-07-14 Outpatient MAHMOODANA LILIA [id number] [place] 00:00:00 00:00:00 BRENTLY Seybol d 2022-07-13 2022-07-13 Outpatient ANA LILIA BRAGG [id number] [place] 14:00:00 14:00:00 Seybol d 2022-07-13 2022-07-13 Outpatient PREZASANA LILIA [id number] [place] 00:00:00 00:00:00 JOHN Seybol d 2022-07-10 2022-07-10 Outpatient LILIAANA LILIA [id number] [place] 00:00:00 00:00:00 DARIELA Seybol d 2022-07-10 2022-07-10 Outpatient LILIAANA LILIA [id number] [place] 00:00:00 00:00:00 DARIELA Seybol d 2022-07-06 2022-07-06 Outpatient TRED47 ANA LILIA BRAGG [id number] [place] 09:45:00 09:45:00 Seybol d 2022-07-06 2022-07-06 Outpatient LILIAANA LILIA [id number] [place] 09:10:00 09:10:00 DARIELA Seybol d 2022-07-06 2022-07-06 Outpatient LILIAANA LILIA [id number] [place] 00:00:00 00:00:00 DARIELA Seybol d 2022-07-04 2022-07-04 Outpatient PREZASANA LILIA [id number] [place] 00:00:00 00:00:00 JOHN Seybol d 2022-07-04 2022-07-04 Outpatient HADLEYSEYLEONA ANA LILIA BRAGG [id number] [place] 00:00:00 00:00:00 MD ANIKA Seybol d 2022-06-25 2022-06-25 Outpatient PREZASANA LILIA [id number] [place] 00:00:00 00:00:00 JOHN Seybol d 2022-06-22 2022-06-22 Outpatient PREZASANA LILIA [id number] [place] 00:00:00 00:00:00 JOHN Seybol d 2022-06-22 2022-06-22 Outpatient NATHANIELANA LILIA Burns [id number] [place] 00:00:00 00:00:00 AMINTA Seybol d 2022-06-20 2022-06-20 Outpatient PREZASANA LILIA [id number] [place] 00:00:00 00:00:00 JOHN Seybol d 2022-06-19 2022-06-19 Outpatient PREZASANA LILIA [id number] [place] 00:00:00 00:00:00 JOHN Seybol d 2022-06-19 2022-06-19 Outpatient PREZASANA LILIA [id number] [place] 00:00:00 00:00:00 JOHN Seybol d 2022-06-12 2022-06-12 Outpatient PREZASANA LILIA [id number] [place] 00:00:00 00:00:00 JOHN Seybol d 2022-06-11 2022-06-11 Outpatient PREZASANA LILIA [id number] [place] 00:00:00 00:00:00 JOHN Seybol d 2022-06-11 2022-06-11 Outpatient PREZASANA LILIA [id number] [place] 00:00:00 00:00:00 JOHN Seybol d 2022-06-10 2022-06-10 Outpatient ANDREIAANA LILIA SANTAMARIA [id number] [place] 00:00:00 00:00:00 GIGI Seybol d 2022-05-29 2022-05-29 Outpatient PREZARubia, ANA LILIA BRAGG [id number] [place] 14:15:00 14:15:00 JOHN Seybol d 2022-05-14 2022-05-14 Outpatient PREZARubia, ANA LILIA BRAGG [id number] [place] 00:00:00 00:00:00 JOHN Seybol d 2022-05-13 2022-05-13 Outpatient WICHLACZ, ANA LILIA BRAGG [id number] [place] 00:00:00 00:00:00 JESI Seybo ld 2022-05-09 2022-05-09 Outpatient PREANA LILIA TOMPKINS [id number] [place] 00:00:00 00:00:00 JOHN Seybol d 2022-05-09 2022-05-09 Outpatient ANA LILIA SALDIVAR [id number] [place] 00:00:00 00:00:00 JOHN Seybol d 2022-05-08 2022-05-08 Outpatient PREANA LILIA TOMPKINS [id number] [place] 00:00:00 00:00:00 JOHN Seybol d 2022-05-07 2022-05-07 Outpatient LAB90 ANA LILIA BRAGG [id number] [place] 09:35:00 09:35:00 Seybol d 2022-05-04 2022-05-04 Outpatient LAB90 ANA LILIA BRAGG [id number] [place] 15:35:00 15:35:00 Seybol d 2022-05-04 2022-05-04 Outpatient PRELEDA, ANA LILIA BRAGG [id number] [place] 10:45:00 10:45:00 JOHN Seybol d 2022-05-04 2022-05-04 Outpatient ANA LILIA BRAGG [id number] [place] 00:00:00 00:00:00 Seybol d 2022-04-10 2022-04-10 Outpatient ISIDORO, [facility] CAR [id number] [facility] 15:16:00 23:59:00 MATTHIAS 2022-03-15 2022-03-15 Outpatient ISIDORO, [facility] CAR [id number] [facility] 10:14:00 23:59:00 MATTHIAS 2022-02-14 2022 Inpatient Hailey GUILLEN [facility] CAR [id number] [facility] 23:13:00 15:23:00 CLAUDIAJOSE R 2022-02-14 2022-02-14 Outpatient KONRAD [facility] [id number] [facility] 23:20:00 23:59:00 PRABHJOT 2022-02-14 2022-02-14 Outpatient KONRAD, [facility] [id number] [facility] 23:20:00 23:59:00 PRABHJOT 70 2019-08-21 2019-08-21 Laboratory Lab, [facility] [id number] 13:53:34 14:13:34 Only Fam P[facility] [id number] [place] [id number] Professio [phone] nal [address] 2019-08-21 2019-08-21 Outpatient Arcelia CAMPBELL [facility] [id number] [facility] 14:00:00 14:00:00 SWATI pizarro [facility] 2019-08-21 2019-08-21 Letter Doctor ZARIA [id number] 00:00:00 00:00:00 (Out) Unassigned, UMESH [id number] [facility] [id number] 2019-07-23 2019-07-23 Outpatient Arcelia FLYNN [facility] [id number] [facility] 13:30:00 13:30:00 BRENDA mongeyony [facility] 2018-10-21 2018-10-21 Emergency E [facility] [id number] [facility] 10:50:00 10:50:00 2018-10-15 2018-10-15 Emergency E [facility] [id number] [facility] 17:05:00 17:05:00 Results This patient has no known results. Notes Date/Time Note Provider Source 2022-08-24 10:39:01-00:00 Formatting of this note is d ifferent from the original. [facility] Axel Contreras is a 47 year old male Chief Complaint Patient presents with New Patient Consultation for sleepy study Sara Henry CMA II
[2022-10-09 18:43] LABS: Absolute Lymphocytes (CBC) 2.2 K/uL (0.7-4.9); Hematocrit 30.9 % (39.6-49.0); Lymphocytes % 29.2 % (15.3-44.8); MCV 86.9 fL (80-100); MPV 8.2 fL (7.6-11.3); Platelets 235 thou/uL (152-406); RBC Red Blood Cell Count 3.56 M/uL (4.33-5.43)
[2022-10-09 18:53] LABS: Protime INR 0.83
[2022-10-09 19:12] LABS: ALT/SGPT 31 U/L (16-61); Albumin 3.8 g/dL (3.4-5.0); Alkaline Phosphatase 85 U/L (45-117); BUN Blood Urea Nitrogen 46 mg/dL (7-18); Bicarbonate 23 mEq/L (21-32); Bilirubin Total 0.8 mg/dL (0.2-1.0); Glomerular Filtration Rate 44 ml/min (=/>90); Glucose Level 372 mg/dL (74-106); NT PRO-BNP 547 pg/mL (<125); Protein, Total 7.7 g/dL (6.4-8.2); Sodium Level 134 mEq/L (136-145); Troponin High Sensitivity 5.8 pg/mL (<58.9)
[2022-10-09 19:13] LABS: AST/SGOT 21 U/L (15-37); Bilirubin Direct < 0.1 mg/dL (0-0.2); Bilirubin Indirect, Calculated ND mg/dL (0.2-0.8); Magnesium 2.4 mg/dL (1.6-2.4); Potassium 4.6 mEq/L (3.5-5.1)
--- NOTE | 2022-10-09 19:49 | RAD REPORT ---
EXAM DESCRIPTION: RAD - Chest Single View - 10/09/2022 7:02 pm CLINICAL HISTORY: CHEST PAIN Chest pain. COMPARISON: Chest Single View dated 07/20/2022; Chest Pa And Lat (2 Views) dated 09/28/2020; Chest Sing le View dated 11/24/2018; Chest Single View dated 04/24/2018 FINDINGS: Portable technique limits examination quality. The lungs are grossly clear. The heart is normal in size. No displaced fractures.Sternotomy wires. Si ngle lead pacer/defibrillator. IMPRESSION: No acute intrathoracic process suspected.
--- NOTE | 2022-10-09 19:57 | EDPHYS ---
Physician Documentation [facility] Name: Axel Contreras Age: 47 yrs Sex: Male : 1975 Arrival Date: 10/09/2022 Time: 18:02 Bed 2 Private MD: Ben Conley ED Physician Peggy Mckeon HPI: 10/09 19:41 This 47 yrs old Male presents to ER via Wheelchair with complaints of Chest sp3 Soreness, Breathing Difficulty. 19:41 47-year-old male with history of diabetes, CHF, hyperlipidemia, hypertension currently sp3 with defibrillator in place the patient states he "slept on it wrong" and it is sore around the pacemaker itself. He denies any substernal chest pain or deep chest pain or difficulty breathing. He denies direct trauma other than possibly sleeping on it. He has not been firing. He also denies headache, neck pain, back pain, abdominal pain, nausea, vomiting, diarrhea, syncope, near syncope, palpitations, fever, URI symptoms, or any other signs or symptoms on ROS time.. Historical: - Allergies: 18:19 No Known Allergies; cm10 - PMHx: 18:19 Congestive heart failure; Diabetes - NIDDM; Hyperlipidemia; Hypertension; cm10 - PSHx: 18:19 CABG 2016; DEFIBRILATOR PLACEMENT 2022; Heart Stents; cm10 - Immunization history:: Adult Immunizations up to date. - Social history:: Smoking status: Patient denies any tobacco usage or history of. ROS: 19:42 Constitutional: Negative for fever, chills, and weight loss, Eyes: Negative for injury, sp3 pain, redness, and discharge, ENT: Negative for injury, pain, and discharge, Neck: Negative for injury, pain, and swelling, Respiratory: Negative for shortness of breath, cough, wheezing, and pleuritic chest pain, Abdomen/GI: Negative for abdominal pain, nausea, vomiting, diarrhea, and constipation, Back: Negative for injury and pain, MS/Extremity: Negative for injury and deformity, Skin: Negative for injury, rash, and discoloration, Neuro: Negative for headache, weakness, numbness, tingling, and seizure, Psych: Negative for depression, anxiety, suicide ideation, homicidal ideation, and hallucinations, Allergy/Immunology: Negative for hives, rash, and allergies, Endocrine: Negative for neck swelling, polydipsia, polyuria, polyphagia, and marked weight changes, Hematologic/Lymphatic: Negative for swollen nodes, abnormal bleeding, and unusual bruising. 19:42 All other systems are negative. Exam: 19:42 Constitutional: This is a well developed, well nourished patient who is awake, alert, sp3 and in no acute distress. Head/Face: Normocephalic, atraumatic. Eyes: Pupils equal round and reactive to light, extra-ocular motions intact. Lids and lashes normal. Conjunctiva and sclera are non-icteric and not injected. Cornea within normal limits. Periorbital areas with no swelling, redness, or edema. Neck: Trachea midline, no thyromegaly or masses palpated, and no cervical lymphadenopathy. Supple, full range of motion without nuchal rigidity, or vertebral point tenderness. No Meningismus. Cardiovascular: Regular rate and rhythm with a normal S1 and S2. No gallops, murmurs, or rubs. Normal PMI, no JVD. No pulse deficits. Respiratory: Lungs have equal breath sounds bilaterally, clear to auscultation and percussion. No rales, rhonchi or wheezes noted. No increased work of breathing, no retractions or nasal flaring. Abdomen/GI: Soft, non-tender, with normal bowel sounds. No distension or tympany. No guarding or rebound. No evidence of tenderness throughout. Back: No spinal tenderness. No costovertebral tenderness. Full range of motion. Skin: Warm, dry with normal turgor. Normal color with no rashes, no lesions, and no evidence of cellulitis. MS/ Extremity: Pulses equal, no cyanosis. Neurovascular intact. Full, normal range of motion. Neuro: Awake and alert, GCS 15, oriented to person, place, time, and situation. Cranial nerves II-XII grossly intact. Motor strength 5/5 in all extremities. Sensory grossly intact. Cerebellar exam normal. Normal gait. Psych: Awake, alert, with orientation to person, place and time. Behavior, mood, and affect are within normal limits. 19:42 Chest/axilla: Patient has soreness around the pacemaker to palpation. There is no significant fluid however there is mild swelling. There are no signs of infection, erythema, or breaks in the skin. No subcu air is noted. Heart and lung exam is normal.. 19:44 ECG was reviewed by the Attending Physician. EKG demonstrates normal sinus rhythm at 80 sp3 bpm with Q waves in lead III and nonspecific diffuse ST/T changes throughout. EKG is not significantly different than EKG performed in July on the 2022. Vital Signs: 18:17 BP 139 / 93; Pulse 85; Resp 16; Temp 98.2; Pulse Ox 100% ; Weight 84.37 kg; Height 5 cm10 ft. 9 in. ; 18:35 BP 128 / 85; Pulse 86; Resp 16; Pulse Ox 99% on R/A; ap3 19:56 BP 123 / 86; Pulse 69; Resp 19 S; Pulse Ox 100% on R/A; as6 18:17 Body Mass Index 27.47 (84.37 kg, 175.26 cm) cm10 MDM: 18:18 Patient medically screened. sp3 19:43 Data reviewed: vital signs, nurses notes, old medical records, lab test result(s), EKG, sp3 radiologic studies. ED course: 39-year-old male with PMH above now presents with musculoskeletal pain around pacemaker. Chest x-ray demonstrates no significant abnormality and laboratory values are all within normal limits. Patient's D-dimer is elevated however I do not believe this represents pulmonary embolism and due to his creatinine there is no CT scan that can be performed. D-dimer was ordered as part of protocol and I do not believe is indicated here at this time. Troponin is negative. Patient has no difficulty breathing and no pain beyond the immediate musculoskeletal region around the defibrillator device itself. Patient is here for out of abundance of precaution. 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 10/09 18:18 Order name: Basic Metabolic Panel; Complete Time: : sp3 10/09 18:18 Order name: CBC with Diff; Complete Time: : sp3 10/09 18:18 Order name: D-Dimer; Complete Time: : sp3 10/09 18:18 Order name: LFT's; Complete Time: : sp3 10/09 18:18 Order name: Magnesium; Complete Time: : sp3 10/09 18:18 Order name: NT PRO-BNP; Complete Time: :28 sp3 10/09 18:18 Order name: PT-INR; Complete Time: 19:28 sp3 10/09 18:18 Order name: Troponin HS; Complete Time: 19: sp3 10/09 18:18 Order name: XRAY Chest (1 view); Complete Time: 20:01 sp3 10/09 18:18 Order name: EKG; Complete Time: 18:19 sp3 10/09 18:18 Order name: Cardiac monitoring; Complete Time: 18:31 sp3 10/09 18:18 Order name: EKG - Nurse/Tech; Complete Time: 18:24 sp3 10/09 18:18 Order name: IV Saline Lock; Complete Time: 18:19 sp3 10/09 18:18 Order name: Labs collected and sent; Complete Time: 18: sp3 10/09 18:18 Order name: O2 Per Protocol; Complete Time: 18: sp3 10/09 18:18 Order name: O2 Sat Monitoring; Complete Time: 18:19 sp3 Administered Medications: No medications were administered Disposition: 19:47 Chart complete. sp3 Disposition Summary: 10/09/22 19:56 Discharge Ordered Location: Home sp3 Condition: Stable sp3 Diagnosis - Musculoskeletal pain, chest pain sp3 Followup: sp3 - With: Private Physician - When: Upon discharge from the Emergency Department - Reason: Recheck today's complaints Discharge Instructions: - Discharge Summary Sheet sp3 - Nonspecific Chest Pain, Adult sp3 Forms: - Medication Reconciliation Form sp3 - Thank You Letter sp3 - Antibiotic Education sp3 - Prescription Opioid Use sp3 - Patient Portal Instructions sp3 - Leadership Thank You Letter sp3 Signatures: Dispatcher [employer] Peggy Abbott MD MD sp3 Adelita Mayberry RN RN cm10
--- NOTE | 2022-10-09 19:57 | ER ---
Nurse's Notes [facility] Name: Axel Contreras Age: 47 yrs Sex: Male : 1975 Arrival Date: 10/09/2022 Time: 18:02 Bed 2 Private MD: Ben Conley Diagnosis: Musculoskeletal pain, chest pain Presentation: 10/09 18:17 Chief complaint: Patient states: chest soreness to left side of chest onset this cm10 morning with some shortness of breath. Coronavirus screen: Vaccine status: Patient reports receiving the 2nd dose of the covid vaccine. Client denies travel out of the [place] in the last 14 days. Ebola Screen: Patient denies travel to an Ebola-affected area in the 21 days before illness onset. No symptoms or risks identified at this time. Initial Sepsis Screen: Does the patient meet any 2 criteria? No. Patient's initial sepsis screen is negative. Does the patient have a suspected source of infection? No. Patient's initial sepsis screen is negative. Risk Assessment: Do you want to hurt yourself or someone else? Patient reports no desire to harm self or others. Onset of symptoms was October 09, 2022. 18:17 Method Of Arrival: Wheelchair cm10 18:17 Acuity: GEOVANNA 2 cm10 Triage Assessment: 18:33 Respiratory: Reports soreness near defibrillator Onset: The symptoms/episode ap3 began/occurred today, the patient has mild shortness of breath. Historical: - Allergies: 18:19 No Known Allergies; cm10 - PMHx: 18:19 Congestive heart failure; Diabetes - NIDDM; Hyperlipidemia; Hypertension; cm10 - PSHx: 18:19 CABG 2016; DEFIBRILATOR PLACEMENT 2022; Heart Stents; cm10 - Immunization history:: Adult Immunizations up to date. - Social history:: Smoking status: Patient denies any tobacco usage or history of. Screenin:33 [facility] ED Fall Risk Assessment (Adult) History of falling in the last 3 months, ap3 including since admission No falls in past 3 months (0 pts). Abuse screen: Denies threats or abuse. Nutritional screening: No deficits noted. Tuberculosis screening: No symptoms or risk factors identified. Assessment: 18:32 General: Appears in no apparent distress. Behavior is calm, cooperative. Pain: ap3 Complains of pain in anterior aspect of left upper chest Quality of pain is described as sore. Neuro: Level of Consciousness is awake, alert, obeys commands, Oriented to person, place, time, situation, Appropriate for age. Cardiovascular: Patient's skin is warm and dry. Respiratory: Airway is patent Respiratory effort is even, unlabored, Breath sounds are clear bilaterally. Vital Signs: 18:17 BP 139 / 93; Pulse 85; Resp 16; Temp 98.2; Pulse Ox 100% ; Weight 84.37 kg; Height 5 cm10 ft. 9 in. ; 18:35 BP 128 / 85; Pulse 86; Resp 16; Pulse Ox 99% on R/A; ap3 19:56 BP 123 / 86; Pulse 69; Resp 19 S; Pulse Ox 100% on R/A; as6 18:17 Body Mass Index 27.47 (84.37 kg, 175.26 cm) cm10 ED Course: 18:03 Patient arrived in ED. rg4 18:03 Ben Conley DO is Private Physician. rg4 18:10 Peggy Mckeon MD is Attending Physician. sp3 18:13 Susan Cruz, NANCY is Primary Nurse. ap3 18:19 Triage completed. cm10 18:19 Arm band placed on Patient placed in an exam room, on a stretcher, on monitoring manager, cm10 on pulse oximetry. 18:31 Initial lab(s) drawn, by me, sent to lab. Inserted saline lock: 22 gauge in left wrist, ap3 using aseptic technique. Blood collected. 18:33 Patient has correct armband on for positive identification. Bed in low position. Call ap3 light in reach. Side rails up X 1. monitoring manager on. Pulse ox on. NIBP on. 19:04 XRAY Chest (1 view) In Process Unspecified. 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 as6 20:04 No provider procedures requiring assistance completed. IV discontinued, intact, as6 bleeding controlled, No redness/swelling at site. Pressure dressing applied. Administered Medications: No medications were administered Medication: 18:34 VIS not applicable for this client. ap3 Outcome: 19:56 Discharge ordered by . sp3 20:04 Discharged to home ambulatory, with family. as6 20:04 Condition: stable 20:04 Discharge instructions given to patient, Instructed on discharge instructions, follow up and referral plans. Demonstrated understanding of instructions, follow-up care. 20:05 Patient left the ED. as6 Signatures: Dispatcher [employer] Citlalli Sweet rg4 Susan Cruz RN RN ap3 Peggy Mckeon MD MD sp3 Noe Petty RN RN as6 Adelita Mayberry RN RN cm10
[2022-10-09 20:23] VITALS: TEMP 98.2
[2022-10-09 20:36] VITALS: BP 123/86; O2SAT 100
--- NOTE | 2022-10-10 13:05 | EKG ---
Test Date: 2022-10-09 Test Time: 18:12:22 Robot Operator: MARTA MEASUREMENT RESULTS: Intervals: Rate: 80 OH: 164 QRSD: 116 QT: 362 QTc: 417 [place]: P: 51 OH: 164 QRS: 28 T: 34 INTERPRETIVE STATEMENTS: Normal sinus rhythm Inferior infarct, age undetermined Cannot rule out Anterior infarct, age undetermined Abnormal ECG Compared to ECG 07/20/2022 12:22:40 Ventricular premature complex(es) no longer present Left ventricular hypertrophy no longer present Myocardial infarct finding still present Electronically Signed On 10-10-22 13:03:30 CDT by Ernie Godfrye
== END 2022-10-09 20:05 | disposition home or self-care (01) ==
LOC: ER 18:02
DX: R07.89 Other chest pain (principal); M79.18 Myalgia, other site; I10 Essential (primary) hypertension; I50.9 Heart failure, unspecified; Z95.1 Presence of aortocoronary bypass graft; Z95.810 Presence of automatic (implantable) cardiac defibrillator; Z95.818 Presence of other cardiac implants and grafts
CPT/HCPCS: 36415; 71045; 80048; 80076; 83735; 83880; 84484; 85025; 85379; 85610; 93005

== ENCOUNTER 2024-05-04 12:37 | Emergency (ER) | payer OTHER ==
[2024-05-04 13:05] LABS: Absolute Basophils 0.1 K/uL (0-0.5); Absolute Eosinophils 0.2 K/uL (0-0.5); Absolute Lymphocytes (CBC) 1.7 K/uL (0.7-4.9); Absolute Neutrophil 6.1 K/uL (1.8-8.0); Eosinophils % 1.7 % (0-4.4); Hematocrit 40.3 % (39.6-49.0); Hemoglobin 13.8 g/dL (13.6-17.9); Lymphocytes % 18.7 % (15.3-44.8); MCHC 34.2 g/dL (32.0-36.0); MCV 84.8 fL (80-100); MPV 8.8 fL (7.6-11.3); Monocytes % 11.2 % (3.3-12.3); Neutrophils % 67.4 % (41.7-73.7); Platelets 220 thou/uL (152-406); RBC Red Blood Cell Count 4.75 M/uL (4.33-5.43); Red Cell Distribution Width 14.7 % (12.1-15.2)
[2024-05-04 13:31] LABS: Troponin High Sensitivity 9.9 pg/mL (<58.9)
--- NOTE | 2024-05-04 13:54 | ER ---
Nurse's Notes [facility] Name: Axel Contreras Age: 49 yrs Sex: Male : 1975 Arrival Date: 05/04/2024 Time: 12:37 Bed 17 Private MD: Diagnosis: Chest pain, unspecified;Hyperglycemia, unspecified Presentation: 05/04 12:48 Chief complaint: Patient states: chest pain , SOB X 1week, has defibrillator, is due iw for stress test tomorrow. Coronavirus screen: At this time, the client does not indicate any symptoms associated with coronavirus-19. Ebola Screen: No symptoms or risks identified at this time. Initial Sepsis Screen: Does the patient meet any 2 criteria? No. Patient's initial sepsis screen is negative. Does the patient have a suspected source of infection? No. Patient's initial sepsis screen is negative. Risk Assessment: Do you want to hurt yourself or someone else? Patient reports no desire to harm self or others. 12:48 Method Of Arrival: Ambulatory iw 12:48 Acuity: GEOVANNA 3 iw 13:00 Onset of symptoms was May 04, 2024. kj2 Historical: - Allergies: 12:50 No Known Allergies; iw - PMHx: 12:49 Congestive heart failure; Diabetes - NIDDM; Hyperlipidemia; Hypertension; iw - PSHx: 12:49 CABG 2016; DEFIBRILATOR PLACEMENT 2022; Heart Stents; iw - Immunization history:: Adult Immunizations unknown. - Infectious Disease History:: Denies. - Social history:: Smoking status: . Screenin:00 [facility] ED Fall Risk Assessment (Adult) History of falling in the last 3 months, kj2 including since admission No falls in past 3 months (0 pts) Confusion or Disorientation No (0 pts) Intoxicated or Sedated No (0 pts) Impaired Gait No (0 pts) Mobility Assist Device Used No (0 pt) Altered Elimination No (0 pt) Score/Fall Risk Level 0 - 2 = Low Risk Maintained a safe environment, Hourly rounding (assess needs \T\ fall precautionary measures) done. Abuse screen: Denies threats or abuse. Denies injuries from another. Nutritional screening: No deficits noted. Tuberculosis screening: No symptoms or risk factors identified. Assessment: 13:00 General: Appears in no apparent distress. Behavior is calm, cooperative. Pain: kj2 Complains of pain in chest Pain does not radiate. Pain currently is 4 out of 10 on a pain scale. Pain began gradually. Neuro: Level of Consciousness is awake, alert, obeys commands, Oriented to person, place, time, situation. Cardiovascular: Patient's skin is warm and dry. Respiratory: Airway is patent Respiratory effort is even, unlabored. Respiratory: Parent/caregiver reports the patient having shortness of breath at rest. GI: No signs and/or symptoms were reported involving the gastrointestinal system. : No signs and/or symptoms were reported regarding the genitourinary system. 14:02 Reassessment: Patient appears in no apparent distress at this time. Patient and/or kj2 family updated on plan of care and expected duration. Pain level reassessed. Patient is alert, oriented x 3, equal unlabored respirations, skin warm/dry/pink. Vital Signs: 12:48 BP 127 / 84; Pulse 81; Resp 16; Pulse Ox 98% on R/A; iw 14:02 BP 113 / 74; Pulse 79; Resp 18; Temp 98; Pulse Ox 100% on R/A; kj2 ED Course: 12:40 Patient arrived in ED. cj3 12:41 Bal Richardson MD is Attending Physician. ec2 12:49 Triage completed. iw 13:00 Patient has correct armband on for positive identification. Provided Education on: call kj2 light. Client placed on continuous cardiac and pulse oximetry monitoring. NIBP monitoring applied. civil engineering director on. 13:00 Arm band placed on Patient placed in an exam room, on a stretcher. EKG completed in kj2 triage. Results shown to MD. 13:13 Leatha Parks, NANCY is Primary Nurse. kj2 14:05 No provider procedures requiring assistance completed. IV discontinued, intact, kj2 bleeding controlled, No redness/swelling at site. Pressure dressing applied. Patient maintains SpO2 saturation greater than 95% on room air. 14:24 XRAY Chest (1 view) In Process Unspecified. EDMS Administered Medications: No medications were administered Medication: 14:04 VIS not applicable for this client. kj2 Outcome: 13:53 Discharge ordered by MD. ec2 14:05 Discharged to home ambulatory, kj2 14:05 Condition: stable 14:05 Discharge instructions given to patient, Instructed on discharge instructions, follow up and referral plans. Demonstrated understanding of instructions, follow-up care, 14:30 Patient left the ED. kj2 Signatures: Dispatcher [employer] Rica Koenig RN NANCY iw Bal Richardson MD MD ec2 Leatha Parks RN RN kj2 Malu Allen 3
--- NOTE | 2024-05-04 13:54 | EDPHYS ---
Physician Documentation [facility] Name: Axel Contreras Age: 49 yrs Sex: Male : 1975 Arrival Date: 05/04/2024 Time: 12:37 Bed 17 Private MD: ED Physician Bal Richardson HPI: 05/04 12:54 This 49 yrs old Male presents to ER via Ambulatory with complaints of Chest ec2 Pain, Chest Tightness, Breathing Difficulty. 12:54 Patient arrives today for evaluation of chest pain ongoing for 1+ week. Patient reports ec2 that has been experiencing this for that timeframe, reports occasional difficulty breathing. Reports history of previous ACS, previous bypass. Reports that he is on Plavix. He states that he has a stress test with cardiology tomorrow And would like to make it to his appointments and wants to make sure that he is not having a heart attack. Historical: - Allergies: 12:50 No Known Allergies; iw - PMHx: 12:49 Congestive heart failure; Diabetes - NIDDM; Hyperlipidemia; Hypertension; iw - PSHx: 12:49 CABG 2016; DEFIBRILATOR PLACEMENT 2022; Heart Stents; iw - Immunization history:: Adult Immunizations unknown. - Infectious Disease History:: Denies. - Social history:: Smoking status: . ROS: 12:55 Constitutional: as per hpi ec2 Exam: 12:55 Constitutional: GEN: NAD Head: atraumatic Eyes: EOMI Ears: External ears are ec2 normal. CV: regular rate LUNGS: no respiratory distress ABD: non-distended SKIN: no evidence of rashes MSK: no evidence of trauma Vital Signs: 12:48 BP 127 / 84; Pulse 81; Resp 16; Pulse Ox 98% on R/A; iw 14:02 BP 113 / 74; Pulse 79; Resp 18; Temp 98; Pulse Ox 100% on R/A; kj2 MDM: 12:41 Medical Screening Exam initiated ec2 12:55 Data reviewed: vital signs, nurses notes. ED course: Patient arrives today for ec2 nonexertional chest pain with associated shortness of breath. Examination shows reassuring hemodynamics and a well-appearing patient. Will obtain a cardiac workup. EKG obtained, independently reviewed and interpreted by me, shows normal sinus rhythm, rate of 87, no acute ST segment elevations, frequent PVCs noted. Will obtain chest x-ray as well as lab work. DDx includes costochondritis, ACS, doubt PE or dissection.. 13:52 ED course: On reassessment patient is well-appearing no acute distress. 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 Return precautions given.. 14:23 ED course: Chest x-ray independently reviewed and interpreted by me, shows no acute ec2 intrathoracic process. Instructed him to follow-up with his earth science professor. Return precautions given.. 05/04 12:41 Order name: Basic Metabolic Panel; Complete Time: 13:45 ec2 05/04 12:41 Order name: CBC with Diff; Complete Time: 13:45 ec2 05/04 12:41 Order name: Troponin HS; Complete Time: 13:45 ec2 05/04 12:41 Order name: XRAY Chest (1 view) ec2 05/04 12:41 Order name: Cardiac monitoring; Complete Time: 13:00 ec2 05/04 12:41 Order name: EKG - Nurse/Tech; Complete Time: 13:00 ec2 05/04 12:41 Order name: IV Saline Lock; Complete Time: 13:00 ec2 05/04 12:41 Order name: Labs collected and sent; Complete Time: 13:00 ec2 05/04 12:41 Order name: O2 Per Protocol; Complete Time: 13:00 ec2 05/04 12:41 Order name: O2 Sat Monitoring; Complete Time: 13:00 ec2 Administered Medications: No medications were administered Disposition Summary: 05/04/24 13:53 Discharge Ordered Notes: Location: Home ec2 Condition: Stable ec2 Diagnosis - Chest pain, unspecified ec2 - Hyperglycemia, unspecified ec2 Followup: ec2 - With: Private Physician - When: - Reason: Re-evaluation by your physician Discharge Instructions: - Discharge Summary Sheet ec2 - Nonspecific Chest Pain, Adult, [id number] ec2 Forms: - Medication Reconciliation Form ec2 - Antibiotic Education ec2 - Prescription Opioid Use ec2 - Patient Portal Instructions ec2 - Leadership Thank You Letter ec2 Signatures: Dispatcher [employer] Rica Koenig RN RN Bal Richardson MD MD ec2 Leatha Parks RN RN kj2 Corrections: (The following items were deleted from the chart) 12:42 12:42 BASIC METABOLIC PANEL+C.LAB.BRZ ordered. EDMS EDMS 12:42 12:42 CBC+H.LAB.BRZ ordered. EDMS EDMS 12:42 12:42 Troponin High Sensitivity+C.LAB.BRZ ordered. EDMS EDMS 12:42 12:42 Chest Single View+RAD.RAD.BRZ ordered. EDMS EDMS 12:55 12:54 Patient arrives today for evaluation of chest pain ongoing for 1+ week. Patient ec2 reports that has been experiencing this for that timeframe, reports occasional difficulty breathing. Reports history of previous ACS, previous bypass. Reports that he is on Plavix. He states that he has a stress test with cardiology tomorrow.. ec2
--- NOTE | 2024-05-04 14:34 | RAD REPORT ---
EXAMINATION: ONE VIEW CHEST XR CLINICAL INDICATION: CHEST PAIN TECHNIQUE: Frontal chest projection is submitted. Examination is limited by patient positioning and t echnique. COMPARISON: No prior exam. FINDINGS: The lungs are well inflated and clear. The heart is upper limit of normal in size. No displaced fract ures identified. Sternotomy wires. Single-lead pacer/defibrillator. IMPRESSION: No acute intrathoracic abnormalities.
[2024-05-04 14:36] VITALS: BP 113/74; TEMP 98; O2SAT 100
== END 2024-05-04 14:30 | disposition home or self-care (01) ==
LOC: ER 12:37
DX: R07.89 Other chest pain (principal); E11.65 Type 2 diabetes mellitus with hyperglycemia; I50.9 Heart failure, unspecified; Z95.1 Presence of aortocoronary bypass graft; Z95.810 Presence of automatic (implantable) cardiac defibrillator; Z95.818 Presence of other cardiac implants and grafts
CPT/HCPCS: 36415; 71045; 80048; 84484; 85025; 93005; 99284